=== PATIENT | female | born 1930 | race Caucasian/White ===

== ENCOUNTER 2020-03-08 16:17 | Inpatient (IN) | payer MEDICARE, OTHER ==
[~2020-03-08] VITALS: Ht 162.6 cm; Wt 53.6 kg
[~2020-03-08 16:17] MED LIST: ASA81 MG; BYSTOLIC10 MG PO; COUMADIN2.5 MG PO; IMODIUM2 MG PO; KEFLEX500 MG PO; METOPROLOL SUCC50 MG PO; METOPROLOL TART25 MG PO; PEPCID20 MG PO; WARFARIN SODIU2.5 MG PO; Z.0.ATENOLOL25 MG
[2020-03-08] MEDS ORDERED: ONDANSETRON HCL INJ 2MG/ML 2ML 2 MG/ML VIAL IV STA (16:56)
[2020-03-08] MEDS ORDERED: MORPHINE SULFATE 2 MG/ML SYR 1ML IV STA (16:56)
[2020-03-08 17:42] LABS: BASOPHILS # (AUTO) 0.1 (0.0-0.1); BASOPHILS % 0.9 % (0.0-1.0); EOSINOPHILS # (AUTO) 0.3 (0.0-0.4); EOSINOPHILS % 3.8 % (0.0-6.0); HEMATOCRIT 34.7 % (34.2-44.1); HEMOGLOBIN 10.5 g/dL (12.0-16.0); LYMPHOCYTES # (AUTO) 0.5 (1.0-3.2); LYMPHOCYTES % 6.1 % (18.0-39.1); MEAN CORPUSCULAR HEMOGLOBIN 26.6 pg (28-32); MEAN CORPUSCULAR HGB CONC 30.3 g/dL (31-35); MEAN CORPUSCULAR VOLUME 88.1 fL (81-99); MONOCYTES # (AUTO) 0.9 (0.2-0.8); MONOCYTES % 10.6 % (4.4-11.3); NEUTROPHILS # (AUTO) 6.9 (2.1-6.9); NEUTROPHILS % 77.8 % (38.7-80.0); PLATELET COUNT 416 x10e3/uL (140-360); RED BLOOD COUNT 3.94 x10e6/uL (3.6-5.1); RED CELL DISTRIBUTION WIDTH 16.5 % (11.7-14.4)
[2020-03-08] MEDS ORDERED: ACETAMINOPHEN 325 MG TAB PO ONE (17:45)
[2020-03-08 17:54] LABS: INR 2.35; PROTHROMBIN TIME 27.5 seconds (11.9-14.5)
[2020-03-08 17:55] LABS: PARTIAL THROMBOPLASTIN TIME 40.1 seconds (23.8-35.5)
[2020-03-08 18:04] LABS: ALANINE AMINOTRANSFERASE 6 IU/L (0-55); ALBUMIN 2.8 g/dL (3.5-5.0); ALBUMIN/GLOBULIN RATIO 0.7 (0.8-2.0); ALKALINE PHOSPHATASE 119 IU/L (40-150); ANION GAP 15.1 mmol/L (8-16); BLOOD UREA NITROGEN 17 mg/dL (7-26); BUN/CREATININE RATIO 24 (6-25); CALCIUM 8.3 mg/dL (8.4-10.2); CARBON DIOXIDE 20 mmol/L (22-29); CHLORIDE 106 mmol/L (98-107); CREATINE KINASE 30 IU/L (29-168); CREATININE, SERUM 0.72 mg/dL (0.57-1.11); EST GLOMERULAR FILTRATION RATE > 60 ML/MIN (60-); GLUCOSE 112 mg/dL (74-118); POTASSIUM 4.1 mmol/L (3.5-5.1); SODIUM 137 mmol/L (136-145)
--- NOTE | 2020-03-08 18:26 | Diagnostic Imaging Report ---
CT BRAIN WO HISTORY: Trauma COMPARISON: Head CT 10/01/2019 Technique: Noncontrast axial scans were obtained from skull base to the vertex. Coronal and sagittal reconstructions obtained from the axial data. One or more of the following dose reduction techniques were used: Automated exposure control, adjustment of the mA and/or kV according to patient size, and/or utilization of iterative reconstruction technique. DISCUSSION: Scalp/Skull: Unremarkable. Brain sulci: Mildly prominent. Ventricles: Compensatory dilatation. Extra-axial spaces: No masses or fluid collections. Carotid siphon calcifications are present. Parenchyma: Focal encephalomalacia in the right inferior frontal gyrus (pars orbitalis), right occipital pole, and left anterior cingulate gyrus may be from remote infarcts. 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 Severe bilateral deep white matter hypodensity is likely chronic microvascular ischemic change. Otherwise, no masses, hemorrhage, or large vascular territory acute infarct. Dural sinuses: No abnormal densities. Sellar/Suprasellar region: Intact. Skull base: Intact. Incidental findings: Bilateral ocular lens replacement. Mild left maxillary sinus mucosal thickening. IMPRESSION: 1. No acute intracranial abnormalities. 2. 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 3. 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 4. Generalized cerebral volume loss. Signed by: Dr. Kranthi Huber M.D. on 03/08/2020 6:22 PM
--- NOTE | 2020-03-08 18:30 | Diagnostic Imaging Report ---
CT CERVICAL SPINE WO HISTORY: Trauma COMPARISON: None. TECHNIQUE: CT of the cervical spine without contrast. Sagittal and coronal reformations were created. One or more of the following dose reduction techniques were used: Automated exposure control, adjustment of the mA and/or kV according to patient size, and/or utilization of iterative reconstruction technique. FINDINGS: Bone demineralization limits evaluation. Cervical lordosis is preserved. There is no scoliosis or subluxation. No definite acute fracture or compression deformity is seen. The craniocervical junction is intact. No gross spinal canal masses are seen. The paravertebral and paraspinal soft tissues are unremarkable. Multilevel advanced spondylotic changes are most prominent at C3-C4 and C4-C5. There is at least mild canal stenosis from C3-C4 to C5-C6 due to posterior disc osteophyte complexes. Multilevel mild to moderate bilateral foraminal stenoses due to uncovertebral and facet arthrosis are present. There is mild scarring in the lung apices. Mild bilateral carotid bulb calcified plaque is present. IMPRESSION: No acute osseous abnormalities. Multilevel advanced spondylosis as described above. Signed by: Dr. Kranthi Huber M.D. on 03/08/2020 6:27 PM
--- NOTE | 2020-03-08 18:35 | Diagnostic Imaging Report ---
EXAMINATION: CT of the abdomen and pelvis without contrast. TECHNIQUE: Spiral CT images of the abdomen and pelvis were performed from the lung bases to the lesser trochanters. No intravenous contrast was given per physician's request. Coronal and sagittal reformatted images were obtained. COMPARISON: None. CLINICAL HISTORY:Status post fall, right lower quadrant pain since yesterday DISCUSSION: ABSENCE OF INTRAVENOUS CONTRAST DECREASES SENSITIVITY FOR DETECTION OF FOCAL LESIONS AND VASCULAR PATHOLOGY. ABDOMEN/PELVIS: LOWER THORAX: Small right pleural effusion and associated compressive atelectasis of the posterior right lower lobe. Trace left effusion and associated atelectatic changes in the posterior left lower lobe. Moderate cardiomegaly . Atherosclerotic calcification of the coronary arteries and thoracic aorta. Moderate hiatal hernia containing stomach fundus and cardia. Distal portion of pacer wire noted in the right ventricle. HEPATOBILIARY: 1.1 cm low-density simple cyst in hepatic segment III (series 2, image 20). Calcified granuloma in hepatic segment IV (series 2, image 27). No other focal lesions. No intra or extrahepatic biliary ductal dilation. GALLBLADDER: Cholecystectomy clips. SPLEEN: No splenomegaly. Multiple calcified splenic granulomata PANCREAS: No focal masses or ductal dilatation. ADRENALS: No adrenal nodules. KIDNEYS/URETERS: Right mild pelvocaliectasis. No hydronephrosis. Bilateral extrarenal pelves. Marked dilation of the ureters bilaterally, right greater than left. Punctate radiopaque calculus is noted in the mid right ureter (series 2, image 41). No distal obstructing calculus is identified. Mostly exophytic 1.5 cm fluid density simple cyst in the posterior inferior left kidney (series 2, image 27). No other contour abnormalities. PELVIC ORGANS/BLADDER: Moderate to marked distention of the bladder. Uterus is not clearly visualized. No adnexal masses. PERITONEUM/RETROPERITONEUM: No free air or fluid. LYMPH NODES: No intra-abdominal,retroperitoneal, pelvic or inguinal lymphadenopathy. VESSELS: Moderate to marked atherosclerotic calcification of the abdominal aorta and proximal iliac vessels. GI TRACT: No bowel dilation or evidence of obstruction. No pericolonic inflammatory changes. A few diverticula are noted in the sigmoid colon, without diverticulitis. BONES AND SOFT TISSUES: Generalized osteopenia. Acute, minimally displaced fracture of the junction of the right superior pubic ramus with the acetabulum (best visualized on coronal image 46). Acute, displaced fracture of the right inferior pubic ramus, with medial displacement of the distal fracture fragment by approximately one shaft width (series 2, image 76). No significant associated hematoma. No other acute, displaced fractures are identified. 3 orthopedic screws are noted in the proximal right femur, which are intact. Mild mild to moderate bilateral hip degenerative changes. No aggressive lytic or blastic lesions. Soft tissues are grossly unremarkable. IMPRESSION: 1.Acute, minimally displaced fracture of the junction of the right superior pubic ramus with the acetabulum. 2.Acute, displaced fracture of the right inferior pubic ramus, with medial displacement of the distal fracture fragment by approximately one shaft width. No significant associated hematoma. 3. Moderate to marked distention of the bladder. Marked dilation of the ureters bilaterally right greater than left. No large obstructing stones are identified. Findings may relate to bladder obstruction. 4. Punctate intraluminal calculus in the right mid ureter. 5. Small right pleural effusion and trace left effusion with associated atelectatic changes in the lower lobes. 6. Moderate hiatal hernia containing the stomach fundus and cardia. Signed by: Dr. Pawel Collins M.D. on 03/08/2020 6:31 PM
--- NOTE | 2020-03-08 18:37 | Diagnostic Imaging Report ---
Examination: Single AP view of the chest. COMPARISON: Portable chest 01/29/2016, CT abdomen and pelvis performed same date INDICATION: Status post fall IMPRESSION: 1. Lines and Tubes: Left upper chest single lead cardiac device with distal tip projecting in the right ventricle. 2. Lungs are well-inflated. Diffuse bilateral interstitial opacities extending from the mila suggesting interstitial pulmonary edema. No consolidation. No effusion is noted in this single AP view, although small right effusion is noted on CT performed same date. 3. Enlarged cardiac silhouette. No pulmonary venous congestion. 4. Cortical step-off at the right proximal humeral metaphysis, likely representing an acute fracture in the setting of trauma. Please see dedicated humerus films for further evaluation. Signed by: Dr. Pawel Collins M.D. on 03/08/2020 6:34 PM
[2020-03-08 18:46] LABS: CLARITY,URINE CLOUDY (CLEAR); COLOR,URINE YELLOW (YELLOW); KETONES,URINE NEGATIVE (NEGATIVE); LEUKOCYTE ESTERASE ,URINE 2+ (NEGATIVE); NITRITE,URINE NEGATIVE (NEGATIVE); PROTEIN,URINE DIPSTICK 1+ (NEGATIVE)
[2020-03-08 18:47] LABS: BILIRUBIN,URINE NEGATIVE (NEGATIVE); URINE UROBILINOGEN 0.2 mg/dL (0.2 - 1)
--- NOTE | 2020-03-08 18:51 | NUR ---
report given to Fan NEVAREZ
[2020-03-08 18:54] LABS: BACTERIA,URINE MANY /HPF; WBC,URINE (MAN) >50 /HPF (0-5)
--- NOTE | 2020-03-08 19:04 | Emergency Department Note ---
History of Present Illnes History of Present Illness Chief Complaint: Extremity Trauma/Pain History of Present Illness This is a 89 year old female s/p fall yesterday at her assisted living center secondary to weakness. Pain at lower abdominal region Historian: Patient, Junior Media Buyer/EMS Arrival Mode: NATHAN EMS Treatment SENIOR STAFF ACCOUNTANT: See EMS Report Onset (how long ago): day(s) (1) Radiation: Reports abdomen Severity: moderate Onset quality: sudden Duration (how long): day(s) (1) Timing of current episode: constant Progression: unchanged Chronicity: new Context: Reports trauma/injury Relieving factors: immobilization Exacerbating factors: movement Associated symptoms: Reports denies other symptoms Treatments prior to arrival: none Past Medical/Family History Physician Review I have reviewed the patient's past medical and family history. Any updates have been documented here. Past Medical History Recent Fever: No Clinical Suspicion of Infectio: No New/Unexplained Change in Ment: No Past Medical History: A-Fib, Hyperlipedemia Other Medical History: eye surgery Past Surgical History: Cholecysctectomy, Hysterectomy Other Surgery: EYE SX X6 Social History Smoking Cessation: Never Smoker Counseling Performed: No Alcohol Use: None Any Illegal Drug Use: No TB Exposure/Symptoms: No Physically hurt or threatened: No Other Last Tetanus: >5 YEARS Any Pre-Existing Lines (PICC,: No Is patient up to date on immun: Yes Last Flu: UTD Last Pneumovax: UTD Review of Systems Review of Systems Constitutional: Reports weakness EENTM: Reports no symptoms Cardiovascular: Reports no symptoms Respiratory: Reports no symptoms Gastrointestinal: Reports no symptoms Genitourinary: Reports no symptoms Musculoskeletal: Reports joint swelling Integumentary: Reports no symptoms Neurological: Reports no symptoms Psychological: Reports no symptoms Endocrine: Reports no symptoms Hematological/Lymphatic: Reports no symptoms Physical Exam Related Data Allergies: Coded Allergies: iodine (Verified Allergy, Severe, ANAPHYLACTIC, 01/29/16) codeine (Verified Allergy, Intermediate, TACHYCARDIA, 01/29/16) Sulfa (Sulfonamide Antibiotics) (Verified Allergy, Unknown, RASH, 11/15/16) Triage Vital Signs Vital Signs Date Time Temp Pulse Resp B/P (MAP) Pulse Ox O2 Delivery O2 Flow Rate FiO2 03/08/20 16:36 98.2 85 16 134/82 96 Vital signs reviewed: Yes Physical Exam CONSTITUTIONAL Constitutional: Present well-developed, Present well-nourished HENT HENT: Present normocephalic, Present atraumatic, Present oropharynx clear/moist, Present nose normal HENT L/R: Present left ext ear normal, Present right ext ear normal EYES Eyes: Reports PERRL, Reports conjunctivae normal NECK Neck: Present ROM normal PULMONARY Pulmonary: Present effort normal, Present breath sounds normal CARDIOVASCULAR Cardiovascular: Present irregular rhythm, Present normal rate GASTROINTESTINAL Abdominal: Present soft, Present nontender, Present bowel sounds normal GENITOURINARY Genitourinary: Present exam deferred SKIN Skin: Present warm, Present dry MUSCULOSKELETAL Musculoskeletal: Present tenderness (suprapubic ) NEUROLOGICAL Neurological: Present alert, Present oriented x 3, Present no gross motor or sensory deficits PSYCHOLOGICAL Psychological: Present mood/affect normal, Present judgement normal Results Laboratory Result Diagram: 03/08/20 1725 03/08/20 1725 Laboratory Laboratory Tests Test 03/08/20 18:10 03/08/20 17:25 Urine Color Yellow (YELLOW) Urine Clarity Cloudy (CLEAR) Urine pH 6 (5 - 7) Urine Specific [place] 1.025 (1.010-1.025) Urine Protein 1+ (NEGATIVE) Urine Glucose (UA) Negative (NEGATIVE) Urine Ketones Negative (NEGATIVE) Urine Blood 3+ (NEGATIVE) Urine Nitrite Negative (NEGATIVE) Urine Bilirubin Negative (NEGATIVE) Urine Urobilinogen 0.2 mg/dL (0.2 - 1) Urine Leukocyte Esterase 2+ (NEGATIVE) Urine RBC 11-20 /HPF (0-5) Urine WBC >50 /HPF (0-5) Urine Epithelial Cells None /LPF (NONE) Urine Bacteria Many /HPF (NONE) White Blood Count 8.80 x10e3/uL (4.8-10.8) Red Blood Count 3.94 x10e6/uL (3.6-5.1) Hemoglobin 10.5 g/dL (12.0-16.0) Hematocrit 34.7 % (34.2-44.1) Mean Corpuscular Volume 88.1 fL (81-99) Mean Corpuscular Hemoglobin 26.6 pg (28-32) Mean Corpuscular Hemoglobin Concent 30.3 g/dL (31-35) Red Cell Distribution Width 16.5 % (11.7-14.4) Platelet Count 416 x10e3/uL (140-360) Neutrophils (%) (Auto) 77.8 % (38.7-80.0) Lymphocytes (%) (Auto) 6.1 % (18.0-39.1) Monocytes (%) (Auto) 10.6 % (4.4-11.3) Eosinophils (%) (Auto) 3.8 % (0.0-6.0) Basophils (%) (Auto) 0.9 % (0.0-1.0) Neutrophils # (Auto) 6.9 (2.1-6.9) Lymphocytes # (Auto) 0.5 (1.0-3.2) Monocytes # (Auto) 0.9 (0.2-0.8) Eosinophils # (Auto) 0.3 (0.0-0.4) Basophils # (Auto) 0.1 (0.0-0.1) Absolute Immature Granulocyte (auto 0.07 x10e3/uL (0-0.1) Prothrombin Time 27.5 seconds (11.9-14.5) Prothromb Time International Ratio 2.35 Activated Partial Thromboplast Time 40.1 seconds (23.8-35.5) Sodium Level 137 mmol/L (136-145) Potassium Level 4.1 mmol/L (3.5-5.1) Chloride Level 106 mmol/L (98-107) Carbon Dioxide Level 20 mmol/L (22-29) Anion Gap 15.1 mmol/L (8-16) Blood Urea Nitrogen 17 mg/dL (7-26) Creatinine 0.72 mg/dL (0.57-1.11) Estimat Glomerular Filtration Rate > 60 ML/MIN (60-) BUN/Creatinine Ratio 24 (6-25) Glucose Level 112 mg/dL (74-118) Calcium Level 8.3 mg/dL (8.4-10.2) Total Bilirubin 0.8 mg/dL (0.2-1.2) Aspartate Amino Transf (AST/SGOT) 13 IU/L (5-34) Alanine Aminotransferase (ALT/SGPT) 6 IU/L (0-55) Alkaline Phosphatase 119 IU/L (40-150) Creatine Kinase 30 IU/L (29-168) Creatine Kinase MB 1.00 ng/mL (0-5.0) Troponin I 0.012 ng/mL (0-0.300) Total Protein 6.9 g/dL (6.5-8.1) Albumin 2.8 g/dL (3.5-5.0) Globulin 4.1 g/dL (2.3-3.5) Albumin/Globulin Ratio 0.7 (0.8-2.0) Imaging Imaging results reviewed: Yes Impressions [place] [address] Patient Name: ASHOK LOCKE MR #: [id number] : 1930 Age/Sex: 89/F Req #: [id number] Adm Physician: Ordered by: CHRISTOPHER RILEY MD Report #: [id number] Location: ER Room/Bed: Procedure: [id number] CT/CT ABDOMEN/PELVIS WO Exam Date: 03/08/20 Exam Time: 1750 REPORT STATUS: Signed EXAMINATION: CT of the abdomen and pelvis without contrast. TECHNIQUE: Spiral CT images of the abdomen and pelvis were performed from the lung bases to the lesser trochanters. No intravenous contrast was given per physician's request. Coronal and sagittal reformatted images were obtained. COMPARISON: None. CLINICAL HISTORY:Status post fall, right lower quadrant pain since yesterday DISCUSSION: ABSENCE OF INTRAVENOUS CONTRAST DECREASES SENSITIVITY FOR DETECTION OF FOCAL LESIONS AND VASCULAR PATHOLOGY. ABDOMEN/PELVIS: LOWER THORAX: Small right pleural effusion and associated compressive atelectasis of the posterior right lower lobe. Trace left effusion and associated atelectatic changes in the posterior left lower lobe. Moderate cardiomegaly . Atherosclerotic calcification of the coronary arteries and thoracic aorta. Moderate hiatal hernia containing stomach fundus and cardia. Distal portion of pacer wire noted in the right ventricle. HEPATOBILIARY: 1.1 cm low-density simple cyst in hepatic segment III (series 2, image 20). Calcified granuloma in hepatic segment IV (series 2, image 27). No other focal lesions. No intra or extrahepatic biliary ductal dilation. GALLBLADDER: Cholecystectomy clips. SPLEEN: No splenomegaly. Multiple calcified splenic granulomata PANCREAS: No focal masses or ductal dilatation. ADRENALS: No adrenal nodules. KIDNEYS/URETERS: Right mild pelvocaliectasis. No hydronephrosis. Bilateral extrarenal pelves. Marked dilation of the ureters bilaterally, right greater than left. Punctate radiopaque calculus is noted in the mid right ureter (series 2, image 41). No distal obstructing calculus is identified. Mostly exophytic 1.5 cm fluid density simple cyst in the posterior inferior left kidney (series 2, image 27). No other contour abnormalities. PELVIC ORGANS/BLADDER: Moderate to marked distention of the bladder. Uterus is not clearly visualized. No adnexal masses. PERITONEUM/RETROPERITONEUM: No free air or fluid. LYMPH NODES: No intra-abdominal,retroperitoneal, pelvic or inguinal lymphadenopathy. VESSELS: Moderate to marked atherosclerotic calcification of the abdominal aorta and proximal iliac vessels. GI TRACT: No bowel dilation or evidence of obstruction. No pericolonic inflammatory changes. A few diverticula are noted in the sigmoid colon, without diverticulitis. BONES AND SOFT TISSUES: Generalized osteopenia. Acute, minimally displaced fracture of the junction of the right superior pubic ramus with the acetabulum (best visualized on coronal image 46). Acute, displaced fracture of the right inferior pubic ramus, with medial displacement of the distal fracture fragment by approximately one shaft width (series 2, image 76). No significant associated hematoma. No other acute, displaced fractures are identified. 3 orthopedic screws are noted in the proximal right femur, which are intact. Mild mild to moderate bilateral hip degenerative changes. No aggressive lytic or blastic lesions. Soft tissues are grossly unremarkable. IMPRESSION: 1.Acute, minimally displaced fracture of the junction of the right superior pubic ramus with the acetabulum. 2.Acute, displaced fracture of the right inferior pubic ramus, with medial displacement of the distal fracture fragment by approximately one shaft width. No significant associated hematoma. 3. Moderate to marked distention of the bladder. Marked dilation of the ureters bilaterally right greater than left. No large obstructing stones are identified. Findings may relate to bladder obstruction. 4. Punctate intraluminal calculus in the right mid ureter. 5. Small right pleural effusion and trace left effusion with associated atelectatic changes in the lower lobes. 6. Moderate hiatal hernia containing the stomach fundus and cardia. Signed by: Dr. Nkechi Collins M.D. on 03/08/2020 6:31 PM Dictated By: NKECHI COLLINS MD 30 Transcribed By: REGINALD on 03/08/201830 COPY TO: CHRISTOPHER RILEY MD~ [place] [address] Patient Name: ASHOK LOCKE MR #: [id number] : 1930 Age/Sex: 89/F Req #: [id number] Adm Physician: Ordered by: CHRISTOPHER RILEY MD Report #: [id number] Location: ER Room/Bed: Procedure: [id number] DX/CHEST SINGLE (PORTABLE) Exam Date: 03/08/20 Exam Time: 1750 REPORT STATUS: Signed Examination: Single AP view of the chest. COMPARISON: Portable chest 01/29/2016, CT abdomen and pelvis performed same date INDICATION: Status post fall IMPRESSION: 1. Lines and Tubes: Left upper chest single lead cardiac device with distal tip projecting in the right ventricle. 2. Lungs are well-inflated. Diffuse bilateral interstitial opacities extending from the mila suggesting interstitial pulmonary edema. No consolidation. No effusion is noted in this single AP view, although small right effusion is noted on CT performed same date. 3. Enlarged cardiac silhouette. No pulmonary venous congestion. 4. Cortical step-off at the right proximal humeral metaphysis, likely representing an acute fracture in the setting of trauma. Please see dedicated humerus films for further evaluation. Signed by: Dr. Nkechi Collins M.D. on 03/08/2020 6:34 PM Dictated By: NKECHI COLLINS MD 33 Transcribed By: REGINALD on 03/08/201833 COPY TO: CHRISTOPHER RILEY MD~ [place] [address] Patient Name: ASHOK LOCKE MR #: [id number] : 1930 Age/Sex: 89/F Req #: [id number] Adm Physician: Ordered by: CHRISTOPHER RILEY MD Report #: [id number] Location: ER Room/Bed: Procedure: [id number] CT/CT CERVICAL SPINE WO Exam Date: 03/08/20 Exam Time: 1750 REPORT STATUS: Signed CT CERVICAL SPINE WO HISTORY: Trauma COMPARISON: None. TECHNIQUE: CT of the cervical spine without contrast. Sagittal and coronal reformations were created. One or more of the following dose reduction techniques were used: Automated exposure control, adjustment of the mA and/or kV according to patient size, and/or utilization of iterative reconstruction technique. FINDINGS: Bone demineralization limits evaluation. Cervical lordosis is preserved. There is no scoliosis or subluxation. No definite acute fracture or compression deformity is seen. The craniocervical junction is intact. No gross spinal canal masses are seen. The paravertebral and paraspinal soft tissues are unremarkable. Multilevel advanced spondylotic changes are most prominent at C3-C4 and C4-C5. There is at least mild canal stenosis from C3-C4 to C5-C6 due to posterior disc osteophyte complexes. Multilevel mild to moderate bilateral foraminal stenoses due to uncovertebral and facet arthrosis are present. There is mild scarring in the lung apices. Mild bilateral carotid bulb calcified plaque is present. IMPRESSION: No acute osseous abnormalities. Multilevel advanced spondylosis as described above. Signed by: Dr. Kranthi Huber M.D. on 03/08/2020 6:27 PM Dictated By: KRANTHI HUBER MD 26 Transcribed By: REGINALD on 03/08/201826 COPY TO: CHRISTOPHER RILEY MD~ [facility] [address] [place] [address] Patient Name: ASHOK LOCKE MR #: [id number] : 1930 Age/Sex: 89/F Req #: [id number] Adm Physician: Ordered by: CHRISTOPHER RILEY MD Report #: [id number] Location: ER Room/Bed: Procedure: [id number] CT/CT BRAIN WO Exam Date: 03/08/20 Exam Time: 1750 REPORT STATUS: Signed CT BRAIN WO HISTORY: Trauma COMPARISON: Head CT 10/01/2019 Technique: Noncontrast axial scans were obtained from skull base to the vertex. Coronal and sagittal reconstructions obtained from the axial data. One or more of the following dose reduction techniques were used: Automated exposure control, adjustment of the mA and/or kV according to patient size, and/or utilization of iterative reconstruction technique. DISCUSSION: Scalp/Skull: Unremarkable. Brain sulci: Mildly prominent. Ventricles: Compensatory dilatation. Extra-axial spaces: No masses or fluid collections. Carotid siphon calcifications are present. Parenchyma: Focal encephalomalacia in the right inferior frontal gyrus (pars orbitalis), right occipital pole, and left anterior cingulate gyrus may be from remote infarcts. 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 Severe bilateral deep white matter hypodensity is likely chronic microvascular ischemic change. Otherwise, no masses, hemorrhage, or large vascular territory acute infarct. Dural sinuses: No abnormal densities. Sellar/Suprasellar region: Intact. Skull base: Intact. Incidental findings: Bilateral ocular lens replacement. Mild left maxillary sinus mucosal thickening. IMPRESSION: 1. No acute intracranial abnormalities. 2. 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 3. 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 4. Generalized cerebral volume loss. Signed by: Dr. Kranthi Huber M.D. on 03/08/2020 6:22 PM Dictated By: KRANTHI HUBER MD 21 Transcribed By: REGINALD on 03/08/201821 COPY TO: CHRISTOPHER RILEY MD~ Procedures 12 Lead ECG Interpretation ECG Interpretation : ECG: ECG 1 Barrel Cutter: Interpreted by ED physician Date: Mar 08, 2020 Time: 19:15 Prior ECG tracings: reviewed Rhythm: atrial fibrillation BPM: 99 ST segments normal: Yes T waves normal: Yes Clinical Impression: non-specific ECG Assessment & Plan Medical Decision Making MDM 89 yof with generalized weakness with resultant fall. CTS Brain and labs ordered to evaluate for intracranial or electrolyte etiology for weakness. CTS abd pelvis ordered for intraperitoneal damage secondary to pubic rami fx. Plan to admit to the hospital for evaluation by orthopedics for injuries Assessment & Plan Final Impression: (1) Pubic ramus fracture (2) Urinary retention (3) UTI (urinary tract infection) (4) Weakness Depart Disposition: ADMITTED Last Vital Signs Date Time Temp Pulse Resp B/P (MAP) Pulse Ox O2 Delivery O2 Flow Rate FiO2 03/08/20 16:42 90 18 131/54 100 03/08/20 16:36 98.2 Home Meds Reported Medications Metoprolol Succinate (METOPROLOL SUCCINATE) 50 Mg Tab.er.24h, 50 MG PO BID, MG 03/09/20 Melatonin (MELATONIN) 3 Mg Tablet, 3 MG PO HS, TAB 03/09/20 Warfarin Sodium (WARFARIN SODIUM) 2 Mg Tablet, 2 MG PO DAILY, TAB 03/09/20 Fluoxetine Hcl (FLUOXETINE HCL) 10 Mg Capsule, 10 MG PO HS, #30 CAP 03/09/20 Metoprolol Succinate (METOPROLOL SUCCINATE) 50 Mg Tab.er.24h, 50 MG PO BID 09/28/19 Warfarin Sodium (WARFARIN SODIUM) 2.5 Mg Tablet, 2.5 MG PO .six days a week do not take on friday09/28/19 Medications in the ED Morphine Sulfate 2 mg ONCE STAT IV ; Start 03/08/20 at 16:56; Stop 03/08/20 at 17:17; Status DC Ondansetron HCl 4 mg ONCE STAT IV ; Start 03/08/20 at 16:56; Stop 03/08/20 at 17:18; Status DC Acetaminophen 650 mg ONCE ONCE PO Last administered on 03/08/20at 18:15; Admin Dose 650 MG; Start 03/08/20 at 17:45; Stop 03/08/20 at 17:46; Status DC MARIANA MARQUEZ DO Mar 08, 2020 19:04
--- NOTE | 2020-03-08 19:40 | NUR ---
PT UPDATED ON POC BY DR. MARQUEZ, ALL QUESTIONS ANSWERED
[2020-03-08] MEDS: SODIUM CHLORIDE 0.9% 1000ML 1,000 ML IV SCH ×2 (19:50→23:52)
--- NOTE | 2020-03-08 19:53 | NUR ---
PATIENT SWABBED FOR COVID AT THIS TIME, NON PUI
[2020-03-08] MEDS ORDERED: ACETAMINOPHEN 325 MG TAB PO PRN (20:00)
[2020-03-08] MEDS: CEFTRIAXONE SOD 1 GM/NS 50 ML 50 ML IV SCH (21:30)
[2020-03-08 23:00] VITALS: BP 124/75
--- NOTE | 2020-03-08 23:00 | NUR ---
PATIENT ARRIVED VIA STRETCHER. RECEIVED REPORT FROM CHANDRA PEPPER NURSE. PATIENT IN PAIN FROM FALL AT ASSISTED [facility]IVING. CALL LIGHT WITHIN REACH. PATIENT IN BED.
[2020-03-09] VITALS (7 sets, daily range): BP systolic 97–129; BP diastolic 51–78
[2020-03-09] MEDS ORDERED: FLUOXETINE HCL10 MG PO (00:34)
[2020-03-09] MEDS ORDERED: MELATONIN3 MG PO (00:34)
[2020-03-09] MEDS ORDERED: METOPROLOL SUCC50 MG PO (00:34)
[2020-03-09] MEDS ORDERED: WARFARIN SODIUM2 MG PO (00:34)
[2020-03-09 05:51] LABS: BASOPHILS # (AUTO) 0.1 (0.0-0.1); BASOPHILS % 0.7 % (0.0-1.0); EOSINOPHILS # (AUTO) 0.2 (0.0-0.4); EOSINOPHILS % 1.5 % (0.0-6.0); HEMATOCRIT 34.7 % (34.2-44.1); HEMOGLOBIN 10.3 g/dL (12.0-16.0); LYMPHOCYTES # (AUTO) 0.6 (1.0-3.2); LYMPHOCYTES % 5.7 % (18.0-39.1); MEAN CORPUSCULAR HEMOGLOBIN 26.4 pg (28-32); MEAN CORPUSCULAR HGB CONC 29.7 g/dL (31-35); MONOCYTES % 9.7 % (4.4-11.3); NEUTROPHILS # (AUTO) 8.5 (2.1-6.9); NEUTROPHILS % 81.9 % (38.7-80.0); PLATELET COUNT 401 x10e3/uL (140-360); RED CELL DISTRIBUTION WIDTH 16.6 % (11.7-14.4)
[2020-03-09 05:55] LABS: INR 2.54; PROTHROMBIN TIME 29.3 seconds (11.9-14.5)
[2020-03-09 06:23] LABS: ALANINE AMINOTRANSFERASE 6 IU/L (0-55); ALBUMIN 2.7 g/dL (3.5-5.0); ALBUMIN/GLOBULIN RATIO 0.7 (0.8-2.0); ALKALINE PHOSPHATASE 121 IU/L (40-150); ANION GAP 15.9 mmol/L (8-16); BLOOD UREA NITROGEN 16 mg/dL (7-26); BUN/CREATININE RATIO 24 (6-25); CALCIUM 8.1 mg/dL (8.4-10.2); CARBON DIOXIDE 18 mmol/L (22-29); CHLORIDE 108 mmol/L (98-107); CREATININE, SERUM 0.67 mg/dL (0.57-1.11); EST GLOMERULAR FILTRATION RATE > 60 ML/MIN (60-); GLUCOSE 107 mg/dL (74-118); POTASSIUM 3.9 mmol/L (3.5-5.1); SODIUM 138 mmol/L (136-145)
--- NOTE | 2020-03-09 07:31 | NUR ---
GAVE BEDSIDE SHIFT REPORT TO ONCOMING NURSE. CALL LIGHT WITHIN REACH. PATIENT IN BED
[2020-03-09] MEDS: SODIUM CHLORIDE 0.9% 1000ML 1,000 ML IV SCH ×2 (07:36→20:49)
--- NOTE | 2020-03-09 07:50 | NUR ---
ORTHOPEDIC CONSULTATION 89 year old right hand dominant female who ambulates with a walker presents from her nursing facility after a mechanical fall with complaints of right groin pain with an inability to ambulate. She denies numbness, paresthesias or loss of distal motor function. She presently denies pain in any other extremity PMdHx: Dehydration, Hypokalemia, A-fib, Humeral Head Fracture, UTI, Urinary retention, Allergies: Sulfa, Codeine, Iodine Surgical Hx: Right hip CRPP FamHx: Non-contributory SocHx; Resident at facility, No present Tob, EtOh or Drugs AVSS Right Lower Extremity TTP of Superior & Inferior Pubic Rami Pain with straight leg raise Pain with log roll Motor: + EHL, FHL, TA, G/S Sensation grossly intact Pulses + DP, Post tib Compartments soft Negative calf tendernss Right Upper Extremity No pain with ROM of Elbow & Shoulder Motor: +AIN, PIN, Radial, Median, Ulnar Sensation grossly intact Pulses + Radial, good capillary refill Compartments soft Xrays of Chest: demonstrate metaphyseal cortical step off suggestive of fracture. CT of Pelvis; demonstrates right superior & inferior pubic rami fracture 89 year old F with Right Superior & Inferior Pubic Rami Fracture, Right Proximal Humerus Cortical Step Off - likely old Right Proximal Humerus Fracture with Callus formation 1. Follow up Xrays of Right Shoulder, will likely be WBAT 2. Analgesics 3. Pelvis - PT, WBAT 4. DVT Prophylaxis 5. Follow up in office in 1-2 weeks Thank you for the consultation. Ana Luisa Ward, DO [facility] [place].
[2020-03-09 07:58] LABS: ANISOCYTOSIS SLIGHT; HYPOCHROMASIA SLIGHT; PLATELET ESTIMATE ADEQUATE; PLATELET MORPHOLOGY COMMENT NORMAL
[2020-03-09 07:59] LABS: ELLIPTOCYTE, RBC SLIGHT; OVALOCYTES FEW; POIKILOCYTOSIS SLIGHT; RBC MORPHOLOGY COMMENT ABNORMAL
[2020-03-09 08:00] LABS: PLATELET CLUMPS RARE
--- NOTE | 2020-03-09 08:43 | History and Physical ---
HISTORY OF PRESENT ILLNESS: The patient came in status post fall and is brought in by paramedics. The patient lives in assisted living center and the patient sustained pubic fracture and also humeral fracture. PAST MEDICAL HISTORY: History of hypertension, history of hyperlipidemia, history of atrial fibrillation, and history of generalized debility. PAST SURGICAL HISTORY: Includes cholecystectomy, hysterectomy, eye surgeries and otherwise noncontributory. SOCIAL HISTORY: No EtOH, no IV drug abuse. No history of smoking either. FAMILY HISTORY: Noncontributory. MEDICATIONS: The patient's medication she takes at home include fluoxetine 10 mg for depression, melatonin 3 mg for sleep, metoprolol 50 mg ER twice a day. She also takes warfarin 2 mg daily for atrial fibrillation. REVIEW OF SYSTEMS: Unable to obtain because the patient is confused, but no complaints of chest pain, complains of hip pain and also right arm pain. PHYSICAL EXAMINATION: GENERAL: The patient is confused. HEENT: Normocephalic, atraumatic. Pupils are equal to react to light and accommodation. CVS: S1 and S2 irregular. ABDOMEN: Nontender, nondistended. There is left hip tenderness and tenderness in the humerus also. EXTREMITIES: No clubbing, no cyanosis, no edema. LABORATORY VALUES: Initial white count is 8.80, hemoglobin of 10.5, hematocrit of 34.7, platelets of 416,000. BUN of 17, creatinine 0.72. Urine bacteria many, nitrates negative, and leukocyte esterase was also negative. Troponins have been trended to be negative and her INR was 2.54. Serology, ortiz virus is pending. ASSESSMENT: Ms. Pascale Flores is with: 1. Status post fall sustaining an acute minimally displaced right superior pubic ramus fracture acute displaced fracture of the right inferior pubic rami. 2. Urinary retention. 3. Small pleural effusion. 4. Atrial fibrillation. 5. Hypertension. 6. Hyperlipidemia. PLAN: 1. Consult with Dr. Childs has been done. If it is okay with him, we can start mobilizing the patient and physical therapy. No surgical intervention seems to be done. 2. X-ray of the right humerus to rule out humeral fracture as per CT. 3. Continue with metoprolol 50 mg twice a day and her warfarin. 4. Continue monitoring her PT/INR. 5. Possible discharge to SNF when arranged, needs physical therapy continuously and pain management. 6. Delirium with baseline possible dementia. We will continue monitoring the patient's mental status. Further recommendation per clinical course. We will discuss the family when family available. MD KULDIP Morales/MODL /[id number]
--- NOTE | 2020-03-09 09:15 | NUR ---
PATIENT TRANSPORTED VIA STRETCHER FOR XRAY.
[2020-03-09] MEDS: CEFTRIAXONE SOD 1 GM/NS 50 ML 50 ML IV SCH ×2 (09:35→20:49)
[2020-03-09] MEDS: METOPROLOL SUCCINATE 50 MG TAB XL PO SCH ×2 (09:37→17:00)
--- NOTE | 2020-03-09 10:16 | NUR ---
PATIENT IS BACK FROM RADIOLOGY.
[2020-03-09] MEDS ORDERED: SODIUM CHLORIDE 0.9% 250ML 0 ML ONE (10:29)
--- NOTE | 2020-03-09 11:09 | Diagnostic Imaging Report ---
EXAMINATION: SHOULDER RIGHT COMPLETE, HUMERUS RIGHT 2+VIEWS INDICATION: Fracture COMPARISON: None FINDINGS: Again visualized is an old right humeral neck fracture with associated callus formation. No acute fracture or dislocation. Alignment is near-anatomic. The soft tissues appear unremarkable. Increased interstitial opacities in the partially visualized right lung. IMPRESSION: Old right humeral neck fracture. No acute osseous injury. Increased interstitial opacities of the partially visualized right lung. Signed by: Max Cain MD on 03/09/2020 11:06 AM
[2020-03-09] MEDS: ONDANSETRON HCL INJ 2MG/ML 2ML 2 MG/ML VIAL IV PRN (13:40)
[2020-03-09] MEDS: MORPHINE SULFATE INJ 4 MG/ML INJ 1ML IV PRN (13:41)
--- NOTE | 2020-03-09 16:03 | NUR ---
SPOKE WITH SON ANT [phone] HE STATES HE IS AT WORK AND WOULD PREFER ONE OF HIS SISTER TO DECIDE ABOUT A SNF LOCATION. CALLED [facility] AND LEFT VOICE MAIL TO RETURN CALL. OFFERED [facility]. THEY WILL FOLLOW UP TOMORROW MORNING, EDUCATED HIM ABOUT IMM AND HE UNDERSTANDS AND STATES HE IS NOT GOING TO APPEAL DISCHARGE, DAUGHTER KEVAN SELBY [phone] CALLED AND STATES SHE WILL HAVE THE CONVERSATION ABOUT THE AREA FACILITIES AND CALL ME BACK TOMORROW WITH A DECISION.
[2020-03-09] MEDS: WARFARIN SOD 2 MG TAB PO SCH (17:43)
--- NOTE | 2020-03-09 19:30 | NUR ---
Report given to body corporate manager. Respiration even and unlabored without SOB. Call light in reach.
--- NOTE | 2020-03-09 19:57 | NUR ---
RECEIVED REPORT FROM 7AM NURSE. PATIENT CONTINUE RESTING, WILL CONTINUE TO MONITOR. BED ALARM ON.
[2020-03-09] MEDS: FLUOXETINE HCL 10 MG CAP PO SCH (20:49)
[2020-03-09] MEDS: MELATONIN 3 MG TAB PO SCH (20:49)
[2020-03-10] VITALS (9 sets, daily range): BP systolic 104–121; BP diastolic 58–74
--- NOTE | 2020-03-10 02:00 | NUR ---
PATIENT CONTINUE RESTING, NO COMPLAINTS OF PAIN, CALL LIGHT IN REACH. IV INFUSING, WILL CONTINUE TO MONITOR.
--- NOTE | 2020-03-10 04:00 | NUR ---
PATIENT CALL THE NURSES STATION TO GET IN BED, PATIENTS IN BED, RE-ORIENTED HER. CALL LIGHT REMAIN IN REACH. WILL CONTINUE TO MONITOR.
[2020-03-10 05:31] LABS: BASOPHILS # (AUTO) 0.1 (0.0-0.1); BASOPHILS % 0.7 % (0.0-1.0); EOSINOPHILS # (AUTO) 0.2 (0.0-0.4); EOSINOPHILS % 2.1 % (0.0-6.0); HEMATOCRIT 35.7 % (34.2-44.1); HEMOGLOBIN 10.4 g/dL (12.0-16.0); LYMPHOCYTES # (AUTO) 0.6 (1.0-3.2); LYMPHOCYTES % 7.3 % (18.0-39.1); MEAN CORPUSCULAR HEMOGLOBIN 26.6 pg (28-32); MEAN CORPUSCULAR HGB CONC 29.1 g/dL (31-35); MEAN CORPUSCULAR VOLUME 91.3 fL (81-99); MONOCYTES % 10.9 % (4.4-11.3); NEUTROPHILS # (AUTO) 6.9 (2.1-6.9); NEUTROPHILS % 78.7 % (38.7-80.0); PLATELET COUNT 372 x10e3/uL (140-360); RED BLOOD COUNT 3.91 x10e6/uL (3.6-5.1); RED CELL DISTRIBUTION WIDTH 16.8 % (11.7-14.4)
[2020-03-10 05:34] LABS: INR 2.61; PROTHROMBIN TIME 29.9 seconds (11.9-14.5)
[2020-03-10 05:47] LABS: ANION GAP 10.7 mmol/L (8-16); BLOOD UREA NITROGEN 13 mg/dL (7-26); BUN/CREATININE RATIO 21 (6-25); CALCIUM 8.1 mg/dL (8.4-10.2); CARBON DIOXIDE 22 mmol/L (22-29); CHLORIDE 109 mmol/L (98-107); CREATININE, SERUM 0.61 mg/dL (0.57-1.11); EST GLOMERULAR FILTRATION RATE > 60 ML/MIN (60-); GLUCOSE 102 mg/dL (74-118); POTASSIUM 3.7 mmol/L (3.5-5.1); SODIUM 138 mmol/L (136-145)
--- NOTE | 2020-03-10 07:05 | NUR ---
REPORT GIVEN TO AM NURSE.
[2020-03-10] MEDS: MORPHINE SULFATE INJ 4 MG/ML INJ 1ML IV PRN ×2 (07:23→13:16)
--- NOTE | 2020-03-10 07:23 | NUR ---
Bedside rounding completed and the pt. comp of pain (very bad right now). She was medicated for pain and is resting in bed at this time.
--- NOTE | 2020-03-10 07:42 | Progress Note ---
DATE: SUBJECTIVE: The patient is an 89-year-old female with a history of pubic ramus fracture, status post fall. The patient has a history of atrial fibrillation and also delirium on this admission. The patient also has urinary tract infection which is being treated by ceftriaxone. Currently, the patient is stable, has some confusion and also some sundowning. OBJECTIVE: VITAL SIGNS: Temperature is 97.8, pulse is 113, respirations 17, blood pressure is 108/71, and pulse oximetry of 91% on room air. HEENT: Normocephalic and atraumatic. Pupils are reactive. CVS: S1 and S2. Regularly irregular. Normal rate right now. ABDOMEN: Nontender and nondistended. EXTREMITIES: No clubbing. No cyanosis and/or no edema. Tenderness present in bilateral hips. LABORATORY VALUES: From today white count is 8.78, hemoglobin is 10.4 and hematocrit 35.7. Chemistry shows sodium 138, potassium 3.7, BUN of 13, creatinine 0.61. Urine cultures no growth at this time. IMAGING STUDIES: As mentioned yesterday. ASSESSMENT: Ms. Pascale Flores with. 1. Fall with displaced right superior ramus fracture and inferior pubic rami fracture. 2. Urinary retention. 3. Atrial fibrillation. 4. Hypertension. 5. Hyperlipidemia. PLAN: SNF consult has been done. Serology; ortiz virus is pending. Plan is to transfer to SNF and continue ongoing physical therapy. Continue to monitor the patient until then, further recommendation per clinical course. The patient's coags, INR is 2.61 and maintain current Coumadin status. MD KULDIP Morales/MODL /[id number]
[2020-03-10 08:01] LABS: PLATELET ESTIMATE SLIGHTLY INCREASED; PLATELET MORPHOLOGY COMMENT RARE EDTA CLUMPING
[2020-03-10 08:02] LABS: HYPOCHROMASIA SLIGHT; OVALOCYTES FEW; RBC MORPHOLOGY COMMENT NORMAL; SPHEROCYTES AL; TARGET CELLS N
--- NOTE | 2020-03-10 09:16 | NUR ---
SPOKE WITH DAUGHTERS YON AND GIORGI, CHOICE IS FOR [facility], FILED CHOICE IN CHART. COMPETED RTF, PASRR, AND COVID FORM AND FAXED CLINICALS PUT PACKET AT NURSES STATION FOR COMPLETION SOON ROOM IS ASSIGNED. EDUCATED FAMILY ABOUT MEDICARE LETTER IMM FILED IN CHART
[2020-03-10] MEDS: CEFTRIAXONE SOD 1 GM/NS 50 ML 50 ML IV SCH ×2 (09:30→20:36)
[2020-03-10] MEDS: METOPROLOL SUCCINATE 50 MG TAB XL PO SCH ×2 (09:30→16:53)
[2020-03-10] MEDS: SODIUM CHLORIDE 0.9% 1000ML 1,000 ML IV SCH (16:52)
[2020-03-10] MEDS: WARFARIN SOD 2 MG TAB PO SCH (16:54)
--- NOTE | 2020-03-10 19:00 | NUR ---
RECEIVED REPORT FROM PREVIOUS NURSE. CALL LIGHT WITHIN REACH. PATIENT IN BED.
[2020-03-10] MEDS: MELATONIN 3 MG TAB PO SCH (20:36)
[2020-03-10] MEDS: FLUOXETINE HCL 10 MG CAP PO SCH (20:36)
[2020-03-11] VITALS: BP 132/88
[2020-03-11] MEDS: MORPHINE SULFATE INJ 4 MG/ML INJ 1ML IV PRN ×2 (03:40→14:50)
[2020-03-11] MEDS: ONDANSETRON HCL INJ 2MG/ML 2ML 2 MG/ML VIAL IV PRN (03:40)
[2020-03-11 04:00] VITALS: BP 127/64
--- NOTE | 2020-03-11 06:46 | NUR ---
HOURLY ROUNDING PERFORMED. PATIENT IN BED. GAVE REPORT TO ONCOMING NURSE. CALL LIGHT WITHIN REACH.
[2020-03-11 07:52] VITALS: BP 116/62
--- NOTE | 2020-03-11 08:08 | Progress Note ---
DATE: SUBJECTIVE: The patient is an 89-year-old lady, came in with a fall, sustaining pubic ramus fracture. The patient continues to be weak, continues to be confused. Alert and oriented x1. No chest pain. No shortness of breath. The patient is working with therapy. Transfer to SNF is pending. OBJECTIVE: VITAL SIGNS: Temperature is 98.3, pulse of 100, respirations of 18, blood pressure is 127/64, pulse oximetry of 98% on room air. HEENT: Normocephalic and atraumatic. GENERAL: As mentioned above, alert and oriented x1. CVS: Irregularly irregular. ABDOMEN: Nontender and nondistended. EXTREMITIES: No clubbing, no cyanosis, trace edema. Positive for ecchymosis. Positive for bilateral hip pain and the patient has some pain in the right hip, which she clenches onto. LABORATORY VALUES: All stable from yesterday. Hemoglobin of 10.4, hematocrit 35.7. Chemistry; sodium 138 and chloride of 109. Coags are within normal limits. Last INR was 2.6. We will repeat one tomorrow. ASSESSMENT: Ms. Pascale Flores with: 1. Fall with displaced right superior ramus fracture. 2. Urinary retention. 3. Atrial fibrillation. 4. Hypertension. 5. Hyperlipidemia. 6. Age-related and physical debility. PLAN: Continue current management and transfer is pending. The patient is currently on sodium chloride. We will go ahead and discontinue it. Continue with warfarin, metoprolol, and fluoxetine as ordered. Further recommendation per clinical course. We will continue to monitor the patient and the patient is currently eating well. We will cut the fluids down to 50 mL an hour. MD KULDIP Morales/MODL /[id number]
[2020-03-11 08:36] VITALS: BP 116/62
--- NOTE | 2020-03-11 08:56 | NUR ---
FAXED COVID NEGATIVE RESULTS TO [facility] COVID FORM IN PACKET ALONG WITH NEGATIVE RESULTS
[2020-03-11] MEDS: METOPROLOL SUCCINATE 50 MG TAB XL PO SCH (08:58)
[2020-03-11] MEDS: SODIUM CHLORIDE 0.9% 1000ML 1,000 ML IV SCH (09:11)
[2020-03-11 11:14] VITALS: BP 116/70
--- NOTE | 2020-03-11 14:48 | NUR ---
DC ORDERS TO GO TO [facility] BEEN CALL[facility] FOR [facility] APPRENTICE
--- NOTE | 2020-03-11 15:00 | NUR ---
The pt. is discharged to [facility] in stable condition.
== END 2020-03-11 15:08 | DRG 536 ==
LOC: ER 16:17 → ERHOLD 19:07 → MED/SURG2 22:19
PROVIDERS: ADMIT Family Medicine; ATTEND Family Medicine
DX: S32.511A Fracture of superior rim of right pubis, initial encounter for closed fracture (principal); J90 Pleural effusion, not elsewhere classified; W19.XXXA Unspecified fall, initial encounter; I48.91 Unspecified atrial fibrillation; Z79.01 Long term (current) use of anticoagulants; R33.9 Retention of urine, unspecified; E78.5 Hyperlipidemia, unspecified; R54 Age-related physical debility; Y92.199 Unspecified place in other specified residential institution as the place of occurrence of the external cause; Z11.59 Encounter for screening for other viral diseases
CPT/HCPCS: 36415; 70450; 71045; 72125; 74176; 80048; 80053; 81001; 82550; 82553; 84484; 85025; 85610; 85730; 87040; 87086; 87635; 93005; 97139; 99285; J0696; J2270; J2405; J7030; J7050

== ENCOUNTER 2020-03-23 12:21 | Inpatient (IN) | payer MEDICARE, OTHER ==
[~2020-03-23] VITALS: Ht 162.6 cm; Wt 55.8 kg
[~2020-03-23 12:21] MED LIST changes: +FLUOXETINE HCL10 MG PO; +MELATONIN3 MG PO; +WARFARIN SODIUM2 MG PO
--- NOTE | 2020-03-23 13:27 | Diagnostic Imaging Report ---
EXAMINATION: CHEST SINGLE (PORTABLE) INDICATION: Pneumonia, altered mental status COMPARISON: Chest radiograph of 03/08/2020 FINDINGS: LINES/TUBES:Left chest pacer. LUNGS:The lungs are moderately inflated. There is perihilar fullness and indistinctness of the pulmonary vasculature. Interval increase in predominantly peripheral right lung hazy opacities. PLEURA:No pleural effusion or pneumothorax. MEDIASTINUM:Cardiomediastinal silhouette is stably enlarged. Atherosclerotic calcifications of the thoracic aorta. BONES/SOFT TISSUES:No acute osseous injury. ABDOMEN:No free air under the diaphragm. IMPRESSION: Interval increase in peripheral right lung hazy opacities which may represent pneumonia in the proper clinical setting. Unchanged cardiomegaly and pulmonary interstitial edema. Signed by: Max Cain MD on 03/23/2020 1:24 PM
[2020-03-23 13:38] LABS: BASOPHILS % 0.4 % (0.0-1.0); HEMATOCRIT 37.5 % (34.2-44.1); HEMOGLOBIN 11.1 g/dL (12.0-16.0); LYMPHOCYTES # (AUTO) 0.4 (1.0-3.2); LYMPHOCYTES % 6.8 % (18.0-39.1); MEAN CORPUSCULAR HGB CONC 29.6 g/dL (31-35); MEAN CORPUSCULAR VOLUME 87.8 fL (81-99); MONOCYTES # (AUTO) 0.4 (0.2-0.8); MONOCYTES % 7.7 % (4.4-11.3); NEUTROPHILS # (AUTO) 4.5 (2.1-6.9); NEUTROPHILS % 84.5 % (38.7-80.0); PLATELET COUNT 367 x10e3/uL (140-360); RED BLOOD COUNT 4.27 x10e6/uL (3.6-5.1); RED CELL DISTRIBUTION WIDTH 17.6 % (11.7-14.4)
--- NOTE | 2020-03-23 14:12 | NUR ---
MED ORDERS PLACED PER VO OF DR DUTTA/RBVO. ROCEPHIN 1 GRAM IV AZITHROMAX 500MG IVPB DECADRON 6MG IVP
[2020-03-23] MEDS ORDERED: CEFTRIAXONE SOD 1 GM VIAL ONE (14:13)
[2020-03-23] MEDS ORDERED: DEXAMETHASONE SOD PHOS 10 MG/1 ML VIAL ONE (14:13)
[2020-03-23] MEDS ORDERED: AZITHROMYCIN 500MG/NS 250 ML 250 ML ONE (14:13)
[2020-03-23] MEDS ORDERED: AZITHROMYCIN 500MG/NS 250 ML 250 ML IV ONE (14:15)
[2020-03-23] MEDS ORDERED: CEFTRIAXONE SOD 1 GM VIAL IV ONE (14:15)
[2020-03-23] MEDS ORDERED: DEXAMETHASONE SOD PHOS 10 MG/1 ML VIAL IV ONE (14:15)
[2020-03-23 14:16] LABS: ALANINE AMINOTRANSFERASE 11 IU/L (0-55); ALBUMIN 2.6 g/dL (3.5-5.0); ALBUMIN/GLOBULIN RATIO 0.6 (0.8-2.0); ALKALINE PHOSPHATASE 184 IU/L (40-150); ANION GAP 14.9 mmol/L (8-16); BLOOD UREA NITROGEN 24 mg/dL (7-26); BUN/CREATININE RATIO 39 (6-25); CALCIUM 8.4 mg/dL (8.4-10.2); CARBON DIOXIDE 24 mmol/L (22-29); CHLORIDE 102 mmol/L (98-107); CREATINE KINASE 127 IU/L (29-168); CREATININE, SERUM 0.61 mg/dL (0.57-1.11); EST GLOMERULAR FILTRATION RATE > 60 ML/MIN (60-); GLUCOSE 115 mg/dL (74-118); POTASSIUM 3.9 mmol/L (3.5-5.1); SODIUM 137 mmol/L (136-145)
--- NOTE | 2020-03-23 14:25 | Emergency Department Note ---
History of Present Illnes History of Present Illness Chief Complaint: COVID PUI History of Present Illness This is a 89 year old female arrived to the ED for skilled nursing for shortness of breath, pt has been on 4L of NC., in sure why. Pt poor historian, history limited. Per RN at [facility] patient has been struggling to breath for the past few days. Chief Complaint Comment ROOM AIR 95%, PLACED ON NC AT 4 LPM 96%, TACHYPNENIC. ALTERED. FROM [facility]. Historian: Patient Arrival Mode: NATIONAL EMS Treatment NEON ELECTRICIAN: See EMS Report Additional Treatment NEON ELECTRICIAN: [facility] History limited by: condition of the patient Onset (how long ago): day(s) Onset quality: unable to specify Duration (how long): day(s) Progression: unable to specify Past Medical/Family History Physician Review I have reviewed the patient's past medical and family history. Any updates have been documented here. Past Medical History Recent Fever: No Clinical Suspicion of Infectio: No New/Unexplained Change in Ment: No Past Medical History: A-Fib, Hyperlipedemia Other Medical History: eye surgery Past Surgical History: Cholecysctectomy, Hysterectomy, Pacer/AICD Other Surgery: EYE SX X6 Other Last Tetanus: >5 YEARS Review of Systems Review of Systems Constitutional: Reports as per HPI EENTM: Reports no symptoms Cardiovascular: Reports no symptoms Respiratory: Reports as per HPI, Reports pain with cough, Reports dyspnea Gastrointestinal: Reports no symptoms Genitourinary: Reports no symptoms Musculoskeletal: Reports no symptoms Integumentary: Reports no symptoms Neurological: Reports no symptoms Psychological: Reports no symptoms Endocrine: Reports no symptoms Hematological/Lymphatic: Reports no symptoms Physical Exam Related Data Allergies: Coded Allergies: iodine (Verified Allergy, Severe, ANAPHYLACTIC, 01/29/16) codeine (Verified Allergy, Intermediate, TACHYCARDIA, 01/29/16) Sulfa (Sulfonamide Antibiotics) (Verified Allergy, Unknown, RASH, 11/15/16) Triage Vital Signs Vital Signs Date Time Temp Pulse Resp B/P (MAP) Pulse Ox O2 Delivery O2 Flow Rate FiO2 03/23/20 12:23 96.6 61 26 108/82 95 Room Air 03/23/20 13:40 3.0 Vital signs reviewed: Yes Physical Exam CONSTITUTIONAL Constitutional: Present cachectic, Present ill appearing HENT HENT: Present normocephalic, Present atraumatic, Present oropharynx clear/moist, Present nose normal HENT L/R: Present left ext ear normal, Present right ext ear normal EYES Eyes: Reports PERRL, Reports conjunctivae normal NECK Neck: Present ROM normal PULMONARY Pulmonary: Present respiratory distress CARDIOVASCULAR Cardiovascular: Present regular rhythm, Present heart sounds normal, Present capillary refill normal, Present normal rate GASTROINTESTINAL Abdominal: Present soft, Present nontender, Present bowel sounds normal GENITOURINARY Genitourinary: Present exam deferred SKIN Skin: Present warm, Present dry MUSCULOSKELETAL Musculoskeletal: Present ROM normal NEUROLOGICAL Neurological: Present alert, Present no gross motor or sensory deficits PSYCHOLOGICAL Psychological: Present mood/affect normal, Present judgement normal Results Laboratory Result Diagram: 03/23/20 1310 03/23/20 1310 Laboratory Laboratory Tests Test 03/23/20 13:10 White Blood Count 5.31 x10e3/uL (4.8-10.8) Red Blood Count 4.27 x10e6/uL (3.6-5.1) Hemoglobin 11.1 g/dL (12.0-16.0) Hematocrit 37.5 % (34.2-44.1) Mean Corpuscular Volume 87.8 fL (81-99) Mean Corpuscular Hemoglobin 26.0 pg (28-32) Mean Corpuscular Hemoglobin Concent 29.6 g/dL (31-35) Red Cell Distribution Width 17.6 % (11.7-14.4) Platelet Count 367 x10e3/uL (140-360) Neutrophils (%) (Auto) 84.5 % (38.7-80.0) Lymphocytes (%) (Auto) 6.8 % (18.0-39.1) Monocytes (%) (Auto) 7.7 % (4.4-11.3) Eosinophils (%) (Auto) 0.0 % (0.0-6.0) Basophils (%) (Auto) 0.4 % (0.0-1.0) Neutrophils # (Auto) 4.5 (2.1-6.9) Lymphocytes # (Auto) 0.4 (1.0-3.2) Monocytes # (Auto) 0.4 (0.2-0.8) Eosinophils # (Auto) 0.0 (0.0-0.4) Basophils # (Auto) 0.0 (0.0-0.1) Absolute Immature Granulocyte (auto 0.03 x10e3/uL (0-0.1) Sodium Level 137 mmol/L (136-145) Potassium Level 3.9 mmol/L (3.5-5.1) Chloride Level 102 mmol/L (98-107) Carbon Dioxide Level 24 mmol/L (22-29) Anion Gap 14.9 mmol/L (8-16) Blood Urea Nitrogen 24 mg/dL (7-26) Creatinine 0.61 mg/dL (0.57-1.11) Estimat Glomerular Filtration Rate > 60 ML/MIN (60-) BUN/Creatinine Ratio 39 (6-25) Glucose Level 115 mg/dL (74-118) Calcium Level 8.4 mg/dL (8.4-10.2) Total Bilirubin 1.2 mg/dL (0.2-1.2) Aspartate Amino Transf (AST/SGOT) 32 IU/L (5-34) Alanine Aminotransferase (ALT/SGPT) 11 IU/L (0-55) Alkaline Phosphatase 184 IU/L (40-150) Creatine Kinase 127 IU/L (29-168) Total Protein 6.8 g/dL (6.5-8.1) Albumin 2.6 g/dL (3.5-5.0) Globulin 4.2 g/dL (2.3-3.5) Albumin/Globulin Ratio 0.6 (0.8-2.0) Lab results reviewed: Yes Imaging Imaging results reviewed: Yes Imaging Comments IMPRESSION: Interval increase in peripheral right lung hazy opacities which may represent pneumonia in the proper clinical setting. Unchanged cardiomegaly and pulmonary interstitial edema. Signed by: Max Cain MD on 03/23/2020 1:24 PM Assessment & Plan Medical Decision Making MDM 89-year-old female arrived to the ED with cough shortness of breath and subjective fevers. Concerns of possible [place] 19. Patient required 3 liters of nasal cannula secondary to her hypoxia. Patient given ceftriaxone and Zithromax Assessment & Plan Final Impression: (1) Pneumonia (2) Acute respiratory disease due to COVID-19 virus Depart Disposition: ADMITTED Last Vital Signs Date Time Temp Pulse Resp B/P (MAP) Pulse Ox O2 Delivery O2 Flow Rate FiO2 03/23/20 13:40 3.0 03/23/20 13:40 92 32 110/69 97 03/23/20 12:23 96.6 Room Air Home Meds Reported Medications Metoprolol Succinate (METOPROLOL SUCCINATE) 50 Mg Tab.er.24h, 50 MG PO BID, MG 03/09/20 Melatonin (MELATONIN) 3 Mg Tablet, 3 MG PO HS, TAB 03/09/20 Warfarin Sodium (WARFARIN SODIUM) 2 Mg Tablet, 2 MG PO DAILY, TAB 03/09/20 Fluoxetine Hcl (FLUOXETINE HCL) 10 Mg Capsule, 10 MG PO HS, #30 CAP 03/09/20 Metoprolol Succinate (METOPROLOL SUCCINATE) 50 Mg Tab.er.24h, 50 MG PO BID 09/28/19 Warfarin Sodium (WARFARIN SODIUM) 2.5 Mg Tablet, 2.5 MG PO .six days a week do not take on friday09/28/19 Medications in the ED Ceftriaxone Sodium 1 gm STK-MED ONCE .ROUTE ; Start 03/23/20 at 14:13; Stop 03/23/20 at 14:08; Status DC Dexamethasone Sodium Phosphate 10 mg STK-MED ONCE .ROUTE ; Start 03/23/20 at 14:13; Stop 03/23/20 at 14:08; Status DC Azithromycin 250 ml @ ud STK-MED ONCE .ROUTE ; Start 03/23/20 at 14:13; Stop 03/23/20 at 14:08; Status DC Ceftriaxone Sodium 1 gm ONCE ONCE IV ; Start 03/23/20 at 14:15; Stop 03/23/20 at 14:16; Status UNV Azithromycin 250 ml @ 200 mls/hr NOW ONCE IV ; Start 03/23/20 at 14:15; Stop 03/23/20 at 15:29; Status UNV Dexamethasone Sodium Phosphate 6 mg ONCE ONCE IV ; Start 03/23/20 at 14:15; Stop 03/23/20 at 14:16; Status UNV GABO DUTTA DO Mar 23, 2020 14:25
[2020-03-23] MEDS ORDERED: ETOMIDATE 2 MG/ML 10 ML INJ IV ONE (14:51)
[2020-03-23] MEDS ORDERED: SUCCINYLCHOLINE CHLORIDE 20 MG/ML 10ML VIAL ONE (14:51)
[2020-03-23] MEDS ORDERED: MIDAZOLAM HCL 2 MG/2 ML VIAL ONE (14:51)
[2020-03-23] MEDS ORDERED: CEFTRIAXONE SOD 1 GM/NS 50 ML 50 ML IV ONE (15:00)
--- NOTE | 2020-03-24 01:11 | History and Physical ---
HISTORY OF PRESENT ILLNESS: This is an 89-year-old female, who was recently sent to the rehab facility and in the rehab facility, the patient deteriorated, had some fevers, pneumonic processes was probably identified. The patient was sent to the emergency room and here, the patient is under investigation for possible COVID with fever and symptomatologies of COVID and x-ray findings of possible COVID. PAST MEDICAL HISTORY: History of hypertension, history of cardiac pacemaker, history of bilateral osteoarthritis of the knee, history of depression, history of chronic intake of warfarin too. ALLERGIES: ALLERGIC TO CODEINE AND IODINE. PAST SURGICAL HISTORY: History of pacemaker placement, history of hysterectomy with unilateral salpingo-oophorectomy and cholecystectomy, pacemaker was placed in 2017. SOCIAL HISTORY: No EtOH. No IV drug abuse. No history of smoking. The patient is a resident of a long-term assisted living facility and also currently was placed in the rehab facility for rehabilitation secondary to acute pelvic fractures. REVIEW OF SYSTEMS: Negative for chest pain. Positive for shortness of breath. Positive for lethargy. Positive for fatigue, generalized malaise. No nausea. No vomiting. No constipation. No rectal bleeding. No hematochezia. No hematemesis. PHYSICAL EXAMINATION: VITAL SIGNS: The patient is febrile, otherwise vitals stable. HEENT: Normocephalic, atraumatic. Pupils reactive. CVS: S1 and S2 are normal. LUNGS: Decreased air entry. ABDOMEN: Soft, nontender, nondistended. EXTREMITIES: No clubbing, no cyanosis, and/or no edema. LABORATORY VALUES: White count is normal. Hemoglobin and hematocrit are normal. BUN and creatinine are within normal limits. X-ray shows patchy infiltrate in bilateral lungs. ASSESSMENT: Ms. Pascale Flores is an 89-year-old female with: 1. Pneumonia. 2. Patient under investigation, possibly coronavirus disease 2019. PLAN: Azithromycin and Rocephin will be started. The patient also if COVID positive, can be started on 6 mg of Decadron, oxygen supplementation, institute Lovenox and/or start back on her warfarin. Further recommendation per clinical course. We will continue to monitor the patient and continue her oxygen status and maintain O2 sats above 92%. MD KULDIP Morales/MODL /[id number]
[2020-03-24] MEDS: ACETAMINOPHEN 325 MG/10 ML UDC PO PRN ×2 (02:30→16:24)
[2020-03-24] MEDS ORDERED: ACETAMINOPHEN 325 MG TAB PO PRN (02:30)
[2020-03-24] MEDS ORDERED: ACETAMINOPHEN 325 MG/10 ML UDC NG PRN (02:30)
[2020-03-24] MEDS ORDERED: ACETAMINOPHEN 325 MG/10 ML UDC ONE (02:32)
[2020-03-24] MEDS ORDERED: COLACE100 MG PO (05:01)
[2020-03-24] MEDS ORDERED: ACETAMINOPHEN325 M1 PO ×2 (05:01)
[2020-03-24] MEDS ORDERED: LIDOCAINE PAIN1 EACH TOP (05:03)
[2020-03-24] MEDS ORDERED: ULTRAM 50MG50 MG PO (05:05)
[2020-03-24] MEDS ORDERED: ZOFRAN4 MG PO (05:05)
[2020-03-24] MEDS ORDERED: WARFARIN SODIUM2 MG PO (05:06)
[2020-03-24] MEDS ORDERED: XOPENEX0.63 MG/3 INH (05:07)
[2020-03-24] MEDS: METOPROLOL SUCCINATE 50 MG TAB XL PO SCH ×2 (05:09→19:01)
[2020-03-24] MEDS ORDERED: METOPROLOL SUCCINATE 50 MG TAB XL ONE (05:15)
[2020-03-24 05:56] LABS: BASOPHILS % 0.2 % (0.0-1.0); HEMOGLOBIN 11.1 g/dL (12.0-16.0); LYMPHOCYTES # (AUTO) 0.2 (1.0-3.2); MEAN CORPUSCULAR HEMOGLOBIN 25.9 pg (28-32); MEAN CORPUSCULAR HGB CONC 29.2 g/dL (31-35); MEAN CORPUSCULAR VOLUME 88.6 fL (81-99); MONOCYTES # (AUTO) 0.3 (0.2-0.8); MONOCYTES % 6.3 % (4.4-11.3); NEUTROPHILS # (AUTO) 3.8 (2.1-6.9); NEUTROPHILS % 89.3 % (38.7-80.0); PLATELET COUNT 318 x10e3/uL (140-360); RED BLOOD COUNT 4.29 x10e6/uL (3.6-5.1); RED CELL DISTRIBUTION WIDTH 17.6 % (11.7-14.4)
[2020-03-24 06:41] LABS: ALANINE AMINOTRANSFERASE 12 IU/L (0-55); ALBUMIN 2.5 g/dL (3.5-5.0); ALBUMIN/GLOBULIN RATIO 0.6 (0.8-2.0); ALKALINE PHOSPHATASE 175 IU/L (40-150); ANION GAP 14.6 mmol/L (8-16); BLOOD UREA NITROGEN 29 mg/dL (7-26); BUN/CREATININE RATIO 43 (6-25); CALCIUM 8.2 mg/dL (8.4-10.2); CARBON DIOXIDE 24 mmol/L (22-29); CHLORIDE 107 mmol/L (98-107); CREATININE, SERUM 0.67 mg/dL (0.57-1.11); EST GLOMERULAR FILTRATION RATE > 60 ML/MIN (60-); GLUCOSE 165 mg/dL (74-118); POTASSIUM 3.6 mmol/L (3.5-5.1); SODIUM 142 mmol/L (136-145)
[2020-03-24 11:31] LABS: HYPOCHROMASIA MODERATE; RBC MORPHOLOGY COMMENT ABNORMAL
--- NOTE | 2020-03-24 15:49 | NUR ---
Pt had large BM, mepilex placed on sacrum. No skin breakdown noted. Pt reports pain to bilateral knees. Pt turned to R side with wedges.
[2020-03-24] MEDS ORDERED: NON-FORMULARY MEDICATION (Ondansetron Hcl* (Zofran*) 4 MG) PO PRN (16:30)
[2020-03-24] MEDS ORDERED: ONDANSETRON HCL 4 MG ORAL DISINTEGRATING TAB PO PRN (16:45)
--- NOTE | 2020-03-24 17:55 | Progress Note ---
DATE: SUBJECTIVE: The patient is an 89-year-old lady, who comes in with pneumonia. The patient is found to have COVID positive, currently sleeping. No chest pain. No nausea, no vomiting. As per nursing, the patient recently had pubic rami fracture and [facility], comes in with COVID-19 virus. OBJECTIVE: VITAL SIGNS: Temperature is 98.8, pulse of 103, pulse oximetry of 96% on 3 L of oxygen, blood pressure is 129/82, and respirations 26. HEENT: Normocephalic, atraumatic. Pupils reactive. CVS: S1, S2 are irregular. LUNGS: Decreased air entry. ABDOMEN: Soft, nontender. EXTREMITIES: No clubbing, no cyanosis. Trace edema. LABORATORY VALUES: White count is 4.28, hemoglobin is 11.1, hematocrit is 38, and platelet count is 318. Chemistry, sodium 142, potassium 3.6, creatinine 0.67, and BUN of 29. Total bilirubin normal. AST and ALT are normal. Total protein 6.5. Serology, coronavirus suspected. MICROBIOLOGY: None done. IMAGING: Shows typical pattern of COVID-19 pneumonia. ASSESSMENT: Ms. Pascale Flores with: 1. COVID-19 pneumonia. 2. Atrial fibrillation. 3. Hypoxemia. 4. Atrial fibrillation. 5. Hyperlipidemia. PLAN: Continue back on home medications. Also, we will start back her on Lovenox for now. A 6 mg of Decadron, azithromycin, and Rocephin will be started, and also a Pulmonary consult will be done. Further recommendation per clinical course. MD KULDIP Morales/MODL /[id number]
[2020-03-24 18:06] LABS: INR 2.38; PROTHROMBIN TIME 27.8 seconds (11.9-14.5)
[2020-03-24] MEDS: CEFTRIAXONE SOD 1 GM/NS 50 ML 50 ML IV SCH (18:40)
[2020-03-24] MEDS: AZITHROMYCIN 500MG/NS 250 ML 250 ML IV SCH (19:01)
[2020-03-24] MEDS: MELATONIN 3 MG TAB PO SCH (22:04)
[2020-03-24] MEDS: FLUOXETINE HCL 10 MG CAP PO SCH (22:04)
[2020-03-25] VITALS (12 sets, daily range): BP systolic 97–157; BP diastolic 54–110
--- NOTE | 2020-03-25 03:15 | NUR ---
Admitted to room 185 via stretcher. Alert and orient to name, hospital, diagnosis PNA. Pt is COVID positive. Pt has decrease awareness of COVID. Pt skin warm and intact. O2 @4L sat 95%. Pt denies pain at this time. Last BM yesterday, denies dysuria. Oriented to room, call light within reach. No acute distress noted. Will continue to monitor.
[2020-03-25 05:36] LABS: INR 2.65; PROTHROMBIN TIME 30.3 seconds (11.9-14.5)
[2020-03-25 07:50] LABS: ANION GAP 15.8 mmol/L (8-16); BLOOD UREA NITROGEN 32 mg/dL (7-26); BUN/CREATININE RATIO 59 (6-25); CALCIUM 8.5 mg/dL (8.4-10.2); CARBON DIOXIDE 24 mmol/L (22-29); CHLORIDE 109 mmol/L (98-107); CREATININE, SERUM 0.54 mg/dL (0.57-1.11); EST GLOMERULAR FILTRATION RATE > 60 ML/MIN (60-); GLUCOSE 127 mg/dL (74-118); POTASSIUM 3.8 mmol/L (3.5-5.1); SODIUM 145 mmol/L (136-145)
[2020-03-25] MEDS: LIDOCAINE 4% PATCH TP SCH (07:53)
[2020-03-25] MEDS: METOPROLOL SUCCINATE 50 MG TAB XL PO SCH ×2 (07:54→18:21)
[2020-03-25] MEDS: TRAMADOL HCL 50 MG TAB PO PRN ×2 (07:57→09:23)
[2020-03-25] MEDS: DOCUSATE SODIUM 100 MG CAP PO SCH (07:57)
--- NOTE | 2020-03-25 08:48 | Progress Note ---
DATE: SUBJECTIVE: An 89-year-old female, who came in with COVID pneumonia. Currently feeling better. She feels no shortness of breath and no apparent problems with breathing. OBJECTIVE: VITAL SIGNS: Temperature is 97.8, pulse of 100, respirations of 20, and pulse oximetry of 95% on 4 L of oxygen. HEENT: Normocephalic and atraumatic. Pupils are reactive. CVS: S1 and S2 normal. Regular rate and rhythm. LUNGS: Decreased air entry into all lung [place]. EXTREMITIES: No clubbing. No cyanosis. No edema. LABORATORY VALUES: None done today. Hemoglobin yesterday was 11.1 and hematocrit of 38. Chemistries are pending. Coags; INR is 2.65. MICROBIOLOGY: None done. ASSESSMENT: Ms. Pascale Flores with: 1. COVID-19 pneumonia. 2. Atrial fibrillation. 3. Hypoxemia. 4. Hyperlipidemia. PLAN: Continue with Rocephin and azithromycin. Labs to be checked today. The patient is also on 6 mg of Decadron. Pulmonary consult is on-board. Continue to monitor the patient. The patient is improving. Further recommendation per clinical course. We will need physical therapy and back to SNF when cleared. The patient needs continuous therapy for pubic fracture. MD KULDIP Morales/MODL /[id number]
[2020-03-25] MEDS ORDERED: ENOXAPARIN 30 MG/0.3 ML SYR SC SCH ×2 (09:00→21:00)
[2020-03-25] MEDS ORDERED: NON-FORMULARY MEDICATION (Lidocaine (Lidocaine Pain Relief) 1 PATCH) TOP SCH (09:00)
[2020-03-25] MEDS: DEXAMETHASONE PHOS 4MG/ML 5ML MULTIDOSE VIAL IV SCH (09:23)
--- NOTE | 2020-03-25 09:30 | NUR ---
Spoke with Dr. Callejas to report pt HR is elevated up to 160s AFIB with RVR and pt is hypoxic. O2 sat is 91 to 84% on nonrebreather. Received orders to give metoprolol 2.5mg and consult Dr. Hunter. Paged Dr. Martínez and Dr. Fonseca and waiting for call back.
[2020-03-25] MEDS ORDERED: ALBUTEROL SULFATE HFA 8GM INHALATION AEROSOL INH PRN (09:45)
--- NOTE | 2020-03-25 09:45 | NUR ---
Spoke with Dr. Fonseca and received orders to give digoxin 0.5mg PO x1 at this time, metoprolol 50mg 50mg q6hrs hold HR <70. Spoke with Dr. Martínez and received orders to transfer to ICU and to have ER intubate pt.
[2020-03-25] MEDS ORDERED: METOPROLOL TARTRATE INJ 1 MG/ML VIAL IV ONE (10:00)
--- NOTE | 2020-03-25 10:15 | NUR ---
Spoke with daughter at this time to update on pt change in status.
[2020-03-25] MEDS ORDERED: METOPROLOL TARTRATE INJ 1 MG/ML VIAL IV PRN (10:30)
[2020-03-25] MEDS ORDERED: DIGOXIN 0.125 MG TAB PO ONE (10:30)
[2020-03-25 10:57] LABS: ABG HCO3 14 mmol/L (22-26); ABG PCO2 33 mmHg (35-45); ABG PH 7.23 (7.35-7.45); ABG PO2 99 mmHg (80-105)
[2020-03-25] MEDS ORDERED: DIGOXIN INJ 0.25 MG/ML 2 ML AMP IV ONE ×2 (11:00→11:30)
--- NOTE | 2020-03-25 11:43 | Consultation ---
DATE OF CONSULTATION: 03/25/2020 REASON FOR CONSULTATION: Atrial fibrillation. CHIEF COMPLAINT: Shortness of breath. HISTORY OF PRESENT ILLNESS: This is an 89-year-old female, well known to practice with history of chronic atrial fibrillation, status post pacemaker implantation, hypertension, hyperlipidemia, glaucoma, and osteoarthritis. The patient presents from [facility] with apparent complaints of shortness of breath, weakness, fevers, was transferred to [facility] ER with noted positive COVID-19. Cardiology was consulted given her history of atrial fibrillation. The patient is seen with respiratory failure on non-rebreather, obtunded, cyanotic appearing. PAST MEDICAL HISTORY: Sick sinus syndrome status post pacemaker implantation, chronic atrial fibrillation, hypertension, hyperlipidemia, glaucoma, and osteoarthritis. PAST SURGICAL HISTORY: Hysterectomy, cholecystectomy, single-chamber pacemaker implantation [facility] on 11/2016. FAMILY HISTORY: Mother at age 102 from old age. Father at age 59 from heart disease. SOCIAL HISTORY: She is a . She is a retired nurse tech. She has no alcohol use or tobacco use. ALLERGIES: TO CODEINE, IODINE. REVIEW OF SYSTEMS: Unable to obtain. PHYSICAL EXAMINATION: GENERAL: Elderly female, chronically ill-appearing, cyanotic appearing, and obtunded. VITAL SIGNS: Height 64 inches, weight 123 pounds, temperature 97, pulse 154, respiratory rate 28, blood pressure 143/95, pulse ox 92% on non-rebreather. SKIN: Cyanotic appearing. HEENT: Normocephalic. Pupils are equal and reactive. HEART: Irregular rhythm, tachycardic, pacemaker on the left side. LUNGS: Rhonchi throughout, on non-rebreather. ABDOMEN: Soft, nontender, and nondistended. VASCULAR: Bilateral radial pulses and DP and PT pulses bilaterally. NEUROLOGIC: Unable to assess. The patient is lethargic. LABORATORY DATA: Sodium 145, potassium 3.8, chloride 109, BUN 32, creatinine 0.5. White count 4, hemoglobin 11, hematocrit 38, platelets 318. INR 2.3. COVID positive, COVID PCR detected. Chest x-ray with right lower lung opacities. ASSESSMENT: COVID-19 pneumonia, respiratory failure, chronic atrial fibrillation, status post pacemaker implantation. PLAN: The patient presents from [facility] with shortness of breath, hypoxia, fevers, noted to be COVID positive. For rate control, we will give digoxin IV. Continue metoprolol. However, we will also add p.r.n. IV. OAC therapy, Coumadin. Most recent INR 2.3, goal of 2 to 3. The patient is in respiratory distress. Will soon be intubated by Pulmonary Service. We will continue to follow. Thank you very much for this consult. Well known to our service Supportive care Agree with note Dictated by Harpal Schulte NP Luis Carlos Fonseca MD DC/GEORGE /[id number]
--- NOTE | 2020-03-25 11:52 | NUR ---
RECEIVED FROM [facility] 185 - ORALLY INTUBATED AT 1130. MEDICATED WITH ETAMIDATE ANS SUCCINYLCHOLINE PRIOT TO INTUBATION AND VERSED AFTERWARDS
[2020-03-25] MEDS: METOPROLOL TARTRATE 50 MG TAB PO SCH ×2 (12:00→18:21)
--- NOTE | 2020-03-25 12:57 | NUR ---
Nutrition Intervention Note RD Recommendation(s) for Physician: Place Small bore nasoenteric tube to the small bowel. Vital AF at 60ml/hr as tolerated via nasoenteric tube. Plan of Care: RD following, monitoring for tolerance and adequacy Nutrition reason for involvement: Nutrition Risk Trigger - MST Now with change of status and ET tube placement. RD Assessment Initial encounter with patient. Pt being transferred to PACU at time of visit. Pt being orally intubated in PACU. Unable to obtain a nutrition Hx for this reason. Pt will likely require nutrition support with EN preferably. Principal Problems/Diagnoses: Pneumonia possibly due to COVID - 19 PMH:HTN, cardiac pacemaker, cholecystectomy, GI:soft Skin:intact Labs: 03/25/2020) Biochemical data reviewed Meds: (03/25/2020) Warfarin Ht:64 in. Wt:123.03lbs BMI:21.1kg/m2 IBW:120lbs Malnutrition Evaluation (03/25/2020) The patient does not meet criteria for a specified degree of malnutrition at this time. Will re-evaluate at follow-up as appropriate. Nutrition Prescription (Diet Order): Cardiac diet ordered, but Pt is being intubated Estimated Nutritional Needs: 9224-9503 calories/day (25-30 kcal/kg/BW) 56-84g protein/day (1-1.5 g pro/kg/BW) Diet Adequacy: Not meeting calorie needs, Not meeting protein needs) Diet Education Needs Assessment: Diet education not indicated, patient on temporary/transition diet. Nutrition Care Level: High Nutrition Diagnosis: Swallowing difficulty related to impaired movement of food liquids from within the oral cavity to the stomach as evidenced by oral intubation. Goal: Patient will meet 75-100% of estimated needs by follow up Progress: ( N/A) Interventions: Commercial food, Composition, Rate, Route Monitoring/Evaluation: Total energy intake, Total protein intake, Formula/Solution, IVF, Prescription medication, Weight change Signed: Edison Adair RD, LD, [facility]
--- NOTE | 2020-03-25 12:58 | Operative Report ---
DATE OF PROCEDURE: SURGEON: Lefty Gonsalez MD PROCEDURE: Endotracheal intubation with a GlideScope. PREOPERATIVE DIAGNOSIS: Respiratory failure. POSTOPERATIVE DIAGNOSIS: Respiratory failure. CONSENT: Consent was deemed emergent due to respiratory distress. MEDICATIONS: Etomidate 20 mg, succinylcholine 100 mg, and Versed 2 mg. PROCEDURE: The patient was placed in a supine position. The patient was preoxygenated with 100% oxygen and an Ambu bag to increase the saturations into the low 90s. A GlideScope was used with a 3-0 Mac blade. The glottis was visualized and a 7.5 ET tube was passed on the first attempt. There was good CO2 return with equal breath sounds bilaterally. COMPLICATIONS: None. ESTIMATED BLOOD LOSS: None. Lefty Gonsalez MD [facility]/MODL /[id number]
--- NOTE | 2020-03-25 13:48 | Diagnostic Imaging Report ---
EXAMINATION: CHEST SINGLE (PORTABLE) INDICATION: ^INTUBATED ^[id number] ^1320 COMPARISON: 03/23/2020 FINDINGS: AP view TUBES and LINES: Interval intubation with endotracheal tube overlying the mid trachea, 4 cm above the lupillo. Unchanged single lead pacemaker overlying the right ventricle. Infradiaphragmatic NG/OG tube. Tip is outside the field of view. LUNGS/PLEURA: Interval development of a large left pneumothorax with mild shifting of the mediastinum towards the right and resulted in complete collapse of the left lung. Multifocal pneumonia in the right lung. No pleural effusions. HEART AND MEDIASTINUM: The cardiomediastinal silhouette is unremarkable.. BONES AND SOFT TISSUES: No acute osseous lesion. Soft tissues are unremarkable. UPPER ABDOMEN: No free air under the diaphragm. IMPRESSION: Interval intubation with endotracheal tube in adequate position. Interval development of a large left pleural effusion with complete collapse of the left lung and mild rightward deviation of the mediastinum suggestive of some degree of tension. Unchanged multifocal pneumonia. These findings were communicated to Dr. Yu on 03/25/2020 at 1:40 PM. Signed by: Dr. Loida Barker M.D. on 03/25/2020 1:45 PM
[2020-03-25 14:18] LABS: ABG HCO3 16 mmol/L (22-26); ABG PCO2 31 mmHg (35-45); ABG PH 7.32 (7.35-7.45); ABG PO2 107 mmHg (80-105)
--- NOTE | 2020-03-25 14:18 | Consultation ---
DATE OF CONSULTATION: Pulmonary Consultation The patient of Dr. Antonio Callejas and Dr. Fonseca. HISTORY OF PRESENT ILLNESS: Unfortunate 89-year-old woman, resident of [facility], admitted with shortness of breath, and weakness and fever, found to be COVID positive, was admitted on the 2nd. PAST MEDICAL HISTORY: She has a history of chronic atrial fibrillation, history of pacemaker in the past, hypertension, hyperlipidemia, glaucoma, osteoarthritis. PAST SURGICAL HISTORY: She has had hysterectomy, cholecystectomy, and pacemaker implantation in the past. FAMILY HISTORY: Positive for longevity in her mother, but premature of father. SOCIAL HISTORY: Nonsmoker. No alcohol. ALLERGIES: TO CODEINE AND IODINE. HOME MEDICATIONS: Have included metoprolol, warfarin, fluoxetine, Colace, recently on Levaquin, melatonin, and tramadol. PHYSICAL EXAMINATION: GENERAL: A frail white female, intubated for respiratory distress on transfer to the [facility] ICU. VITAL SIGNS: Temperature 97.7, T-max 99.5, pulse 130 and irregular, respirations 22. She is intubated orally and NG tube is in place. HEAD: There is some temporal wasting, appears elderly. LUNGS: Diminished breath sounds. HEART: Irregular rhythm. ABDOMEN: Nontender. EXTREMITIES: Nonedematous. IMPRESSION: Severe COVID pneumonia. PLAN: Continue supportive care. At the request of the power of trademark attorney, the patient is now intubated, on mechanical life support. Continue to use [place] protocol as tolerated. Tube feeding. She is currently anticoagulated with Protonix. Prognosis is grim. Thank you for this kind referral. Harpal Yu MD [facility]/MODL /[id number]
--- NOTE | 2020-03-25 14:18 | Consultation ---
DATE OF CONSULTATION: ADDENDUM: The patient was found to have a left pneumothorax chest tube will be placed MD DAYANA Lew/GEORGE /[id number] MTDD
[2020-03-25] MEDS ORDERED: LIDOCAINE HCL 2% LOCAL 20 ML VIAL ONE (14:51)
[2020-03-25] MEDS ORDERED: VECURONIUM BROMIDE FOR INJ 20 MG VIAL ONE (14:59)
--- NOTE | 2020-03-25 16:27 | Diagnostic Imaging Report ---
EXAMINATION: CHEST SINGLE (PORTABLE) INDICATION: ^Left chest tube placement ^[id number] ^1600 COMPARISON: Chest radiograph 03/25/2020 1320 9:00 PM FINDINGS: AP view TUBES and LINES: Interval placement of left-sided chest tube with tip overlying the medial aspect of the inferior cardiac silhouette. Unchanged single lead pacemaker. Endotracheal and NG/OG tubes remain in stable. LUNGS: Interval significant decrease in size of the left pneumothorax with reexpansion of the left lung. Persistent bilateral multifocal pneumonia. PLEURA: No pleural effusion or pneumothorax. HEART AND MEDIASTINUM: The cardiomediastinal silhouette is unremarkable.. BONES AND SOFT TISSUES: No acute osseous lesion. Small amount of subcutaneous emphysema along the left chest wall. UPPER ABDOMEN: No free air under the diaphragm. IMPRESSION: Interval placement of a left-sided chest tube with tip overlying the inferior cardiac silhouette, medially. Tip cannot be localized on the frontal single x-ray. Interval significant decrease in size of the left pneumothorax, now small with a gap of 2.6 cm resulting in re-expansion of the left lung. Unchanged bilateral multifocal pneumonia. Signed by: Dr. Loida Barker M.D. on 03/25/2020 4:24 PM
[2020-03-25] MEDS ORDERED: WARFARIN SOD 2 MG TAB PO SCH (17:00)
[2020-03-25] MEDS: AZITHROMYCIN 500MG/NS 250 ML 250 ML IV SCH (18:21)
[2020-03-25] MEDS: ASCORBIC ACID 500 MG TAB PO SCH (18:21)
[2020-03-25] MEDS: CEFTRIAXONE SOD 1 GM/NS 50 ML 50 ML IV SCH (18:21)
--- NOTE | 2020-03-25 19:39 | Consultation ---
DATE OF CONSULTATION: HISTORY OF PRESENT ILLNESS: Ms. Flores is an 89-year-old white female, who comes in to the emergency room with shortness of breath. The patient who is an 89-year-old with history of atherosclerotic heart disease, coronary artery disease, sick sinus syndrome, pacemaker implantation, chronic atrial fibrillation, hypertension, hyperlipidemia, glaucoma, osteoarthritis, hysterectomy, cholecystectomy, single chamber pacemaker implantation, [place] on 11/2016, comes into the emergency room with shortness of breath. came to the emergency room from [facility] with shortness of breath. Her COVID-19 was positive. The patient is noncommunicative. History was taken mainly from the chart. PHYSICAL EXAMINATION: VITAL SIGNS: Temperature 97.4, heart rate 102, respirations 18, and blood pressure 110/74. HEENT: Normocephalic. NECK: Supple. CHEST: Few crackles. COR: S1-S2, no murmurs. ABDOMEN: Soft, bowel sounds present. No tenderness. EXTREMITIES: No edema. LABORATORY DATA: White count is 4.28, hemoglobin 11.1. Sodium 145, potassium 3.8, creatinine 0.54. Her chest x-ray showed that she has endotracheal intubation and tracheal tube showed large left pleural effusion with complete collapse of the left lung with deviation . This was discussed with Dr. Yu and he consulted above, she is currently noncommunicative. IMPRESSION: COVID-19, present on admission. Pneumonia, present on admission, concern about aspiration, large pleural effusion. Agree with dexamethasone. Agree to continue all home medication, azithromycin , Rocephin 1 g daily. The patient is currently on Coumadin. Cardiology was consulted chest tube placement. Prognosis is guarded. Supportive care as ordered. MD KAMILAH Mcdonald/GEORGE /[id number]
[2020-03-25] MEDS: FLUOXETINE HCL 10 MG CAP PO SCH (21:00)
[2020-03-25] MEDS: MELATONIN 3 MG TAB PO SCH (21:00)
[2020-03-26] VITALS (13 sets, daily range): BP systolic 87–123; BP diastolic 47–65
[2020-03-26] MEDS: MIDAZOLAM HCL 5MG/ML 10ML VIAL 100 ML IV PRN (04:47)
[2020-03-26] MEDS: METOPROLOL TARTRATE 50 MG TAB PO SCH ×4 (06:00→17:50)
--- NOTE | 2020-03-26 06:01 | Diagnostic Imaging Report ---
EXAMINATION: CHEST SINGLE (PORTABLE) INDICATION: ^INTUBATED COMPARISON: 03/25/2020 FINDINGS: AP view TUBES and LINES: Unchanged endotracheal tube, nasogastric tube, and left basilar chest tube. Left mechanical cardiac device. LUNGS: Unchanged diffuse pulmonary airspace disease. PLEURA: Unchanged small left pneumothorax with maximum apical air gap of 2.6 cm. No radiographic evidence of tension. HEART AND MEDIASTINUM: The cardiomediastinal silhouette is unchanged. BONES AND SOFT TISSUES: Interval development of prominent subcutaneous emphysema of the left chest wall and left base of the neck. UPPER ABDOMEN: No free air under the diaphragm. IMPRESSION: 1. Unchanged persistent left pneumothorax status post chest tube placement. Interval development of large subcutaneous emphysema of the left chest wall and left base of the neck. Correlate with chest tube function. 2. Unchanged multifocal pulmonary airspace disease consistent with viral pneumonia. Signed by: Jaime Manzo MD on 03/26/2020 5:58 AM
[2020-03-26 06:32] LABS: BASOPHILS % 0.1 % (0.0-1.0); HEMATOCRIT 41.3 % (34.2-44.1); HEMOGLOBIN 11.9 g/dL (12.0-16.0); LYMPHOCYTES # (AUTO) 0.2 (1.0-3.2); LYMPHOCYTES % 1.6 % (18.0-39.1); MEAN CORPUSCULAR HEMOGLOBIN 25.9 pg (28-32); MEAN CORPUSCULAR HGB CONC 28.8 g/dL (31-35); MEAN CORPUSCULAR VOLUME 89.8 fL (81-99); MONOCYTES # (AUTO) 0.2 (0.2-0.8); MONOCYTES % 2.3 % (4.4-11.3); NEUTROPHILS # (AUTO) 9.2 (2.1-6.9); NEUTROPHILS % 95.6 % (38.7-80.0); PLATELET COUNT 261 x10e3/uL (140-360); RED CELL DISTRIBUTION WIDTH 17.8 % (11.7-14.4)
[2020-03-26 06:54] LABS: INR 3.7; PROTHROMBIN TIME 39.6 seconds (11.9-14.5)
[2020-03-26 07:01] LABS: CLARITY,URINE CLOUDY (CLEAR); COLOR,URINE BROWN (YELLOW)
[2020-03-26 07:02] LABS: BILIRUBIN,URINE SMALL (NEGATIVE); KETONES,URINE NEGATIVE (NEGATIVE); LEUKOCYTE ESTERASE ,URINE LARGE (NEGATIVE); NITRITE,URINE NEGATIVE (NEGATIVE); PROTEIN,URINE DIPSTICK 2+ (NEGATIVE); URINE UROBILINOGEN 1 mg/dL (0.2 - 1)
[2020-03-26 07:06] LABS: BACTERIA,URINE MANY /HPF; EPITHELIAL CELLS,URINE FEW /LPF
[2020-03-26 07:08] LABS: ALBUMIN 2.4 g/dL (3.5-5.0); ALBUMIN/GLOBULIN RATIO 0.7 (0.8-2.0); CREATININE, SERUM 0.91 mg/dL (0.57-1.11)
--- NOTE | 2020-03-26 08:23 | NUR ---
AM CXR RESULTS CALLED TO DR Jean-Paul MORENO, HE WILL SEE PATIENT ON ROUNDS
[2020-03-26] MEDS: LIDOCAINE 4% PATCH TP SCH (09:00)
[2020-03-26] MEDS ORDERED: DEXAMETHASONE SOD PHOS 10 MG/1 ML VIAL ONE (10:03)
[2020-03-26] MEDS: DOCUSATE SODIUM 100 MG CAP PO SCH (10:09)
[2020-03-26] MEDS: DEXAMETHASONE PHOS 4MG/ML 5ML MULTIDOSE VIAL IV SCH (10:09)
[2020-03-26] MEDS: ASCORBIC ACID 500 MG TAB PO SCH ×2 (10:09→17:30)
[2020-03-26] MEDS: PANTOPRAZOLE 40 MG 10ML VIAL IV SCH (10:09)
[2020-03-26] MEDS: METOPROLOL SUCCINATE 50 MG TAB XL PO SCH (10:10)
[2020-03-26 10:22] LABS: LYMPHOCYTES % (MANUAL) 2 % (19-48); MONOCYTES % (MANUAL) 2 % (3.4-9.0); NEUTROPHILS % (MANUAL) 96 % (40-74); RBC MORPHOLOGY COMMENT ABNORMAL
--- NOTE | 2020-03-26 10:22 | Progress Note ---
DATE: SUBJECTIVE: An 89-year-old female, who came in with COVID pneumonia. The patient came in shortness of breath. Has history of sick sinus syndrome, coronary artery disease, atherosclerosis, recent fall with pubic rami fracture. The patient was intubated yesterday and had a pneumothorax. The patient is status post chest tube placement. Cardiology consult was done for atrial fibrillation. The patient is intubated and currently in the [facility]. PHYSICAL EXAMINATION: VITAL SIGNS: Temperature is 97.4, pulse of 64, and pulse oximeter is 99% on mechanical ventilator. GENERAL: The patient is intubated, chronically sick-appearing. HEENT: The patient has subcutaneous emphysema, starting all the way from the neck extending onto the facial area. HEART: Regular, bradycardic at this time. LUNGS: Decreased air entry, rhonchi throughout. ABDOMEN: Soft, nontender, nondistended. EXTREMITIES: No clubbing, no cyanosis. Edema present. LABORATORY VALUES: White count is 9.65, hemoglobin of 11.9, platelet count is 261, neutrophil count 95.6. Chemistry; sodium of 146, creatinine 0.91, yesterday's BUN was 32. ALT and AST are elevated. Coags; INR is 3.70. IMAGING STUDIES: Chest x-ray done post chest tube placement. Persistent left pneumothorax post placement. Large subcutaneous emphysema left chest wall and multifocal pulmonary airspace consistent with viral pneumonia. ASSESSMENT AND PLAN: Ms. Pascale Flores: 1. COVID-19 pneumonia. The patient is intubated with large pleural effusion with pneumothorax, status post chest tube placement. We can stop the Coumadin right now and prognosis is very guarded on this patient. 2. Supportive care as ordered. 3. Pulmonary, ID, and Cardiology on case. Medication list verified. Currently, the patient is on Rocephin and dexamethasone. Metoprolol 50 q.6 hours and azithromycin. MD KULDIP Morales/GEORGE /[id number]
[2020-03-26 10:23] LABS: HYPOCHROMASIA MODERATE; PLATELET ESTIMATE ADEQUATE; PLATELET MORPHOLOGY COMMENT NORMAL
--- NOTE | 2020-03-26 12:11 | Diagnostic Imaging Report ---
Examination: Single AP view of the chest. COMPARISON: Portable chest performed same date INDICATION: Central line placement IMPRESSION: 1. Lines and Tubes: Interval placement of right-sided PICC line, which has its distal tip projecting in the proximal to mid SVC. Other supporting tubes are unchanged. Left upper chest cardiac device is unchanged. 2. No interval change in diffuse pulmonary airspace disease, right greater than left. Signed by: Dr. Pawel Collins M.D. on 03/26/2020 12:07 PM
[2020-03-26] MEDS ORDERED: PHYTONADIONE 10 MG/ML AMP SC ONE (13:30)
[2020-03-26 14:21] LABS: ABG HCO3 26 mmol/L (22-26); ABG PCO2 41 mmHg (35-45); ABG PH 7.41 (7.35-7.45); ABG PO2 57 mmHg (80-105)
--- NOTE | 2020-03-26 14:33 | NUR ---
ABG RESULTS CALLED TO DR WHYTE, STATES TO KEEP VENT SETTINGS THE SAME. GOAL TO KEEP O2 SAT AT 90% OR ABOVE
[2020-03-26] MEDS: AZITHROMYCIN 500MG/NS 250 ML 250 ML IV SCH (17:30)
[2020-03-26] MEDS: CEFTRIAXONE SOD 1 GM/NS 50 ML 50 ML IV SCH (17:30)
[2020-03-26] MEDS: MELATONIN 3 MG TAB PO SCH (21:45)
[2020-03-26] MEDS: FLUOXETINE HCL 10 MG CAP PO SCH (21:45)
[2020-03-27] VITALS (24 sets, daily range): BP systolic 97–119; BP diastolic 45–59
[2020-03-27] MEDS: MIDAZOLAM HCL 5MG/ML 10ML VIAL 100 ML IV PRN (02:03)
--- NOTE | 2020-03-27 05:26 | Diagnostic Imaging Report ---
EXAMINATION: CHEST SINGLE (PORTABLE) INDICATION: ^COVID COMPARISON: 03/26/2020 FINDINGS: AP view TUBES and LINES: Unchanged endotracheal tube, nasogastric tube, and left chest tube. Unchanged right upper extremity PICC. Left cardiac device. LUNGS: Unchanged diffuse pulmonary airspace disease. PLEURA: Unchanged left pneumothorax with air gap of 2.6 cm. HEART AND MEDIASTINUM: The cardiomediastinal silhouette is unchanged. BONES AND SOFT TISSUES: Mild interval decrease in subcutaneous emphysema of the left neck and left chest wall. UPPER ABDOMEN: No free air under the diaphragm. IMPRESSION: 1. Unchanged left pneumothorax. Slight interval decrease in left-sided subcutaneous emphysema. 2. Unchanged diffuse pulmonary airspace disease consistent with viral pneumonia. Signed by: Jaime Manzo MD on 03/27/2020 5:23 AM
[2020-03-27] MEDS: METOPROLOL TARTRATE 50 MG TAB PO SCH ×4 (06:00→18:00)
[2020-03-27 06:07] LABS: BASOPHILS % 0.1 % (0.0-1.0); HEMATOCRIT 39.2 % (34.2-44.1); HEMOGLOBIN 11.3 g/dL (12.0-16.0); LYMPHOCYTES # (AUTO) 0.1 (1.0-3.2); LYMPHOCYTES % 0.8 % (18.0-39.1); MEAN CORPUSCULAR HEMOGLOBIN 25.9 pg (28-32); MEAN CORPUSCULAR HGB CONC 28.8 g/dL (31-35); MEAN CORPUSCULAR VOLUME 89.7 fL (81-99); MONOCYTES # (AUTO) 0.2 (0.2-0.8); MONOCYTES % 1.6 % (4.4-11.3); NEUTROPHILS # (AUTO) 10.5 (2.1-6.9); NEUTROPHILS % 97.1 % (38.7-80.0); PLATELET COUNT 201 x10e3/uL (140-360); RED BLOOD COUNT 4.37 x10e6/uL (3.6-5.1); RED CELL DISTRIBUTION WIDTH 17.9 % (11.7-14.4)
[2020-03-27 06:28] LABS: ALANINE AMINOTRANSFERASE 73 IU/L (0-55); ALBUMIN 1.9 g/dL (3.5-5.0); ALBUMIN/GLOBULIN RATIO 0.6 (0.8-2.0); ALKALINE PHOSPHATASE 209 IU/L (40-150); ANION GAP 8.6 mmol/L (8-16); BLOOD UREA NITROGEN 45 mg/dL (7-26); BUN/CREATININE RATIO 74 (6-25); CALCIUM 7.8 mg/dL (8.4-10.2); CARBON DIOXIDE 30 mmol/L (22-29); CHLORIDE 112 mmol/L (98-107); CREATININE, SERUM 0.61 mg/dL (0.57-1.11); EST GLOMERULAR FILTRATION RATE > 60 ML/MIN (60-); GLUCOSE 158 mg/dL (74-118); POTASSIUM 3.6 mmol/L (3.5-5.1); SODIUM 147 mmol/L (136-145)
[2020-03-27 08:55] LABS: LYMPHOCYTES % (MANUAL) 2 % (19-48); MONOCYTES % (MANUAL) 1 % (3.4-9.0); NEUTROPHILS % (MANUAL) 97 % (40-74)
[2020-03-27 08:56] LABS: ANISOCYTOSIS SLIGHT; PLATELET ESTIMATE ADEQUATE; PLATELET MORPHOLOGY COMMENT NORMAL; POIKILOCYTOSIS SLIGHT; RBC MORPHOLOGY COMMENT NORMAL
[2020-03-27] MEDS: LIDOCAINE 4% PATCH TP SCH (10:38)
[2020-03-27] MEDS: ASCORBIC ACID 500 MG TAB PO SCH ×2 (10:38→16:39)
[2020-03-27] MEDS: PANTOPRAZOLE 40 MG 10ML VIAL IV SCH (10:39)
[2020-03-27] MEDS: DOCUSATE SODIUM 100 MG CAP PO SCH (10:39)
[2020-03-27] MEDS: DEXAMETHASONE PHOS 4MG/ML 5ML MULTIDOSE VIAL IV SCH (13:46)
[2020-03-27] MEDS: AZITHROMYCIN 500MG/NS 250 ML 250 ML IV SCH (16:37)
[2020-03-27] MEDS: CEFTRIAXONE SOD 1 GM/NS 50 ML 50 ML IV SCH (16:37)
--- NOTE | 2020-03-27 19:52 | Progress Note ---
DATE: SUBJECTIVE: An 89-year-old female, who came in with COVID-19 pneumonia, transferred to ICU, intubated and also chest tube in place. The patient has subcutaneous emphysema currently, otherwise stable as per nursing. OBJECTIVE: VITAL SIGNS: Temperature is 97.5, pulse of 66, respirations of 16, blood pressure is 109/55, and pulse oximetry of 96%. HEENT: Normocephalic. Tube in place. CVS: S1 and S2 distant, irregular. ABDOMEN: Soft and nontender. EXTREMITIES: No clubbing. Positive edema. LABORATORY VALUES: Today's white count is 10.55, hemoglobin of 11.3, and hematocrit of 39.2. Chemistries; sodium of 147, BUN of 45, and creatinine 0.61. ALT and AST elevated. ASSESSMENT: COVID-19, present on admission with pneumonia. The patient also has large pleural effusion, status post chest tube places. Continue with dexamethasone, Rocephin, and azithromycin. Chest tube in place. Prognosis is very guarded. Continue supportive care. We will monitor her lytes and her CBC on a daily basis. Further recommendation per clinical course. MD KULDIP Morales/GEORGE /[id number]
[2020-03-27] MEDS: FLUOXETINE HCL 10 MG CAP PO SCH (21:15)
[2020-03-27] MEDS: MELATONIN 3 MG TAB PO SCH (21:15)
[2020-03-28] VITALS (24 sets, daily range): BP systolic 96–135; BP diastolic 41–79
[2020-03-28] MEDS: MIDAZOLAM HCL 5MG/ML 10ML VIAL 100 ML IV PRN ×2 (03:00→17:48)
[2020-03-28] MEDS: METOPROLOL TARTRATE 50 MG TAB PO SCH ×4 (06:00→17:48)
[2020-03-28 06:41] LABS: INR 1.14; PROTHROMBIN TIME 15.3 seconds (11.9-14.5)
[2020-03-28 06:48] LABS: BASOPHILS % 0.1 % (0.0-1.0); HEMATOCRIT 40.2 % (34.2-44.1); HEMOGLOBIN 11.5 g/dL (12.0-16.0); LYMPHOCYTES # (AUTO) 0.1 (1.0-3.2); LYMPHOCYTES % 0.8 % (18.0-39.1); MEAN CORPUSCULAR HEMOGLOBIN 25.7 pg (28-32); MEAN CORPUSCULAR HGB CONC 28.6 g/dL (31-35); MEAN CORPUSCULAR VOLUME 89.7 fL (81-99); MONOCYTES # (AUTO) 0.2 (0.2-0.8); MONOCYTES % 2.2 % (4.4-11.3); NEUTROPHILS % 96.3 % (38.7-80.0); PLATELET COUNT 134 x10e3/uL (140-360); RED BLOOD COUNT 4.48 x10e6/uL (3.6-5.1); RED CELL DISTRIBUTION WIDTH 18.2 % (11.7-14.4)
[2020-03-28 06:58] LABS: ANION GAP 9.9 mmol/L (8-16); BLOOD UREA NITROGEN 35 mg/dL (7-26); BUN/CREATININE RATIO 58 (6-25); CALCIUM 7.8 mg/dL (8.4-10.2); CARBON DIOXIDE 30 mmol/L (22-29); CHLORIDE 114 mmol/L (98-107); EST GLOMERULAR FILTRATION RATE > 60 ML/MIN (60-); GLUCOSE 242 mg/dL (74-118); POTASSIUM 3.9 mmol/L (3.5-5.1); SODIUM 150 mmol/L (136-145)
--- NOTE | 2020-03-28 08:15 | Progress Note ---
DATE: SUBJECTIVE: The patient is an 89-year-old female, who came in with COVID pneumonia. Currently, the patient is intubated. Medications include sedation, Rocephin, on metoprolol for rate control and the patient's warfarin is on hold at this time. She is also on dexamethasone 6 mg daily. OBJECTIVE: VITAL SIGNS: T-max is 100, which is at 0017 hours, respirations of 30, pulse of 72, the patient is on mechanical ventilator. HEENT: Normocephalic, atraumatic. The patient is intubated. CVS: S1 and S2, irregular. ABDOMEN: Soft and nontender. EXTREMITIES: No clubbing, no cyanosis, no edema. LABORATORY VALUES: White count is 10.78, hemoglobin of 11.3, hematocrit of 39.2. Chemistries; sodium of 147, BUN 45 and creatinine 0.62. Coags are pending today. Serology of course coronavirus detected. ASSESSMENT AND PLAN: Ms. Flores with COVID pneumonia and pleural effusion with chest tube placement, intubated. The patient is on dexamethasone and Rocephin. We will continue monitoring her white count. The prognosis is very guarded. We will discuss the case with the family today and there are mixed reports of her, not wanting to be intubated. We will talk to the family and decide on further plan. Further recommendation per clinical course. We will continue to monitor her until that. MD KULDIP Morales/POONAML /[id number]
--- NOTE | 2020-03-28 08:23 | Diagnostic Imaging Report ---
EXAMINATION: CHEST SINGLE (PORTABLE) INDICATION: Pneumothorax, pneumonia COMPARISON: Multiple prior chest radiograph most recently 03/27/2020 FINDINGS: LINES/TUBES:Support lines and tubes unchanged. LUNGS:Lung aeration has improved from the prior radiograph. Persistent interstitial opacities of both lower lungs. PLEURA:Interval decrease in size of left pneumothorax now measuring up to 7 mm maximal thickness. MEDIASTINUM:The cardiomediastinal silhouette appears unchanged in size and shape. BONES/SOFT TISSUES:Decreasing left chest wall subcutaneous emphysema. ABDOMEN:No free air under the diaphragm. IMPRESSION: Interval improvement in left pneumothorax, now measuring up to 7 mm maximum thickness. Interval improvement in lung aeration and decrease in bilateral interstitial and airspace opacities. Signed by: Max Cain MD on 03/28/2020 8:20 AM
[2020-03-28 09:25] LABS: ANISOCYTOSIS MODERATE; OVALOCYTES MODERATE; RBC MORPHOLOGY COMMENT ABNORMAL; SCHISTOCYTES RARE
[2020-03-28 09:26] LABS: ELLIPTOCYTE, RBC SLIGHT; PLATELET ESTIMATE SLIGHTLY DECREASED
[2020-03-28 09:27] LABS: BURR CELLS SLIGHT; HYPOCHROMASIA SLIGHT; PLATELET MORPHOLOGY COMMENT RARE EDTA CLUMPING; TEAR DROP CELLS FEW
[2020-03-28 09:32] LABS: LYMPHOCYTES % (MANUAL) 1 % (19-48); MONOCYTES % (MANUAL) 1 % (3.4-9.0); NEUTROPHILS % (MANUAL) 98 % (40-74)
[2020-03-28] MEDS: ASCORBIC ACID 500 MG TAB PO SCH ×2 (09:56→17:46)
[2020-03-28] MEDS: ZINC SULFATE 220 MG CAP PO SCH (09:56)
[2020-03-28] MEDS: PANTOPRAZOLE 40 MG 10ML VIAL IV SCH (09:56)
[2020-03-28] MEDS: LIDOCAINE 4% PATCH TP SCH (09:56)
[2020-03-28] MEDS: DOCUSATE SODIUM 100 MG CAP PO SCH (09:56)
[2020-03-28] MEDS: DEXAMETHASONE PHOS 4MG/ML 5ML MULTIDOSE VIAL IV SCH (09:56)
[2020-03-28] MEDS: DEXTROSE 5% 1,000 ML IV SCH (12:28)
[2020-03-28 13:55] LABS: ABG HCO3 30 mmol/L (22-26); ABG PCO2 37 mmHg (35-45); ABG PH 7.52 (7.35-7.45); ABG PO2 115 mmHg (80-105)
[2020-03-28] MEDS: CEFTRIAXONE SOD 1 GM/NS 50 ML 50 ML IV SCH (15:30)
[2020-03-28] MEDS: AZITHROMYCIN 500MG/NS 250 ML 250 ML IV SCH (17:46)
[2020-03-28] MEDS ORDERED: ENOXAPARIN SOD INJ 40 MG/0.4 ML SYR SC SCH (21:00)
--- NOTE | 2020-03-28 21:06 | NUR ---
Notified Dr. Mariluz Gonsalez of ABG. No new orders. Communicated with RT.
[2020-03-28] MEDS: MELATONIN 3 MG TAB PO SCH (21:09)
[2020-03-28] MEDS: FLUOXETINE HCL 10 MG CAP PO SCH (21:09)
[2020-03-28] MEDS: ENOXAPARIN SOD INJ 60 MG/0.6 ML SYR SC SCH (21:09)
[2020-03-29] VITALS (18 sets, daily range): BP systolic 91–109; BP diastolic 42–58
[2020-03-29] MEDS: TRAMADOL HCL 50 MG TAB PO PRN ×2 (01:37→02:42)
[2020-03-29] MEDS: MIDAZOLAM HCL 5MG/ML 10ML VIAL 100 ML IV PRN ×4 (01:44→23:57)
[2020-03-29] MEDS: METOPROLOL TARTRATE 50 MG TAB PO SCH ×3 (06:00→11:52)
[2020-03-29 06:26] LABS: BASOPHILS % 0.1 % (0.0-1.0); HEMOGLOBIN 10.5 g/dL (12.0-16.0); LYMPHOCYTES # (AUTO) 0.1 (1.0-3.2); LYMPHOCYTES % 0.9 % (18.0-39.1); MEAN CORPUSCULAR HEMOGLOBIN 25.7 pg (28-32); MEAN CORPUSCULAR HGB CONC 28.4 g/dL (31-35); MEAN CORPUSCULAR VOLUME 90.7 fL (81-99); MONOCYTES # (AUTO) 0.3 (0.2-0.8); MONOCYTES % 2.4 % (4.4-11.3); NEUTROPHILS # (AUTO) 11.4 (2.1-6.9); NEUTROPHILS % 95.9 % (38.7-80.0); PLATELET COUNT 74 x10e3/uL (140-360); RED BLOOD COUNT 4.08 x10e6/uL (3.6-5.1); RED CELL DISTRIBUTION WIDTH 18.6 % (11.7-14.4)
[2020-03-29 06:29] LABS: INR 1.12; PROTHROMBIN TIME 15.1 seconds (11.9-14.5)
[2020-03-29 06:44] LABS: ANION GAP 7.6 mmol/L (8-16); BLOOD UREA NITROGEN 29 mg/dL (7-26); BUN/CREATININE RATIO 57 (6-25); CALCIUM 7.3 mg/dL (8.4-10.2); CARBON DIOXIDE 31 mmol/L (22-29); CHLORIDE 110 mmol/L (98-107); CREATININE, SERUM 0.51 mg/dL (0.57-1.11); EST GLOMERULAR FILTRATION RATE > 60 ML/MIN (60-); GLUCOSE 289 mg/dL (74-118); POTASSIUM 3.6 mmol/L (3.5-5.1); SODIUM 145 mmol/L (136-145)
--- NOTE | 2020-03-29 07:12 | NUR ---
Infectious disease progress note 03/29/2020 The patient is an 89-year-old female, who came in with COVID pneumonia. Currently, the patient is intubated. the patient remains in intensive care unit Laboratory review chart reviewed Discussed with the medical team Medications List all reviewed include sedation, Rocephin, on metoprolol for rate control and the patient's warfarin is on hold at this time. She is also on dexamethasone 6 mg daily. OBJECTIVE: VITAL SIGNS: T-max is 100, which is at 0017 hours, respirations of 30, pulse of 72, the patient is on mechanical ventilator. HEENT: Normocephalic, atraumatic. The patient is intubated. CVS: S1 and S2, irregular. ABDOMEN: Soft and nontender. EXTREMITIES: No clubbing, no cyanosis, no edema. LABORATORY VALUES: White count is 10.78, hemoglobin of 11.3, hematocrit of 39.2. Chemistries; sodium of 147, BUN 45 and creatinine 0.62. Coags are pending today. covid 19 [id number]
[2020-03-29] MEDS: DEXTROSE 5% 1,000 ML IV SCH (08:34)
[2020-03-29] MEDS: DOCUSATE SODIUM 100 MG CAP PO SCH (08:38)
[2020-03-29] MEDS: ASCORBIC ACID 500 MG TAB PO SCH (08:38)
[2020-03-29] MEDS: PANTOPRAZOLE 40 MG 10ML VIAL IV SCH (08:38)
[2020-03-29] MEDS: ENOXAPARIN SOD INJ 60 MG/0.6 ML SYR SC SCH (08:38)
[2020-03-29] MEDS: LIDOCAINE 4% PATCH TP SCH (08:38)
--- NOTE | 2020-03-29 08:42 | NUR ---
Dr Yu to bedside, orders rec'd.
--- NOTE | 2020-03-29 08:43 | Diagnostic Imaging Report ---
EXAMINATION: CHEST SINGLE (PORTABLE) INDICATION: Pneumothorax COMPARISON: Chest radiograph 03/28/2020 FINDINGS: LINES/TUBES:Endotracheal tube terminates 2.8 cm above the lupillo. Enteric tube projects pole of the diaphragm with tip not visualized. Right PICC line unchanged. Left basilar chest tube unchanged. LUNGS:Lung volumes are decreased. Interval increase in bilateral multifocal airspace opacities. PLEURA:No pleural effusion or pneumothorax. MEDIASTINUM:The cardiomediastinal silhouette appears unchanged in size and shape. BONES/SOFT TISSUES:No acute osseous injury. ABDOMEN:No free air under the diaphragm. IMPRESSION: Interval increase in bilateral multifocal airspace opacities consistent with known viral pneumonia. No pneumothorax. Signed by: Max Cain MD on 03/29/2020 8:39 AM
[2020-03-29] MEDS ORDERED: DEXTROSE 50% SYRINGE 50 ML IV PRN (08:45)
[2020-03-29] MEDS: ZINC SULFATE 220 MG CAP PO SCH (09:00)
[2020-03-29] MEDS: DEXAMETHASONE PHOS 4MG/ML 5ML MULTIDOSE VIAL IV SCH (09:20)
[2020-03-29 09:56] LABS: LYMPHOCYTES % (MANUAL) 1 % (19-48); MONOCYTES % (MANUAL) 1 % (3.4-9.0); NEUTROPHILS % (MANUAL) 98 % (40-74); NUCLEATED RED BLOOD CELLS 1
[2020-03-29 09:57] LABS: BURR CELLS SLIGHT; HYPOCHROMASIA SLIGHT; OVALOCYTES MODERATE
[2020-03-29 09:58] LABS: ANISOCYTOSIS MODERATE; ELLIPTOCYTE, RBC SLIGHT; PLATELET ESTIMATE MODERATELY DECREASED; RBC MORPHOLOGY COMMENT ABNORMAL
[2020-03-29 09:59] LABS: PLATELET MORPHOLOGY COMMENT RARE EDTA CLUMPING
[2020-03-29] MEDS ORDERED: INSULIN LISPRO 100 UNIT/1 ML 3ML VIAL SQ SCH (11:30)
--- NOTE | 2020-03-29 14:19 | NUR ---
Nutrition Intervention Note RD Recommendation(s) for Physician: - Continue to advance current TF to goal rate of 50 ml/hr (1200 kcal 105 gm protein). - Water flushes/fluid management per MD. Plan of Care: RD following, TF rec's, monitoring for tolerance and adequacy Nutrition reason for involvement: follow up RD Assessment 03/31: Follow up. Pt remains intubated and sedated with Versed. Pt with chest tube in place 2/2 pleural effusion. Total of 705 ml of TF administered per I/O documentation yesterday, TF infusing at avg of 30 ml/hr. As feasible advance TF to goal rate of 50 ml/hr. Chart reviewed. Will continue to monitor. Initial encounter with patient. Pt being transferred to PACU at time of visit. Pt being orally intubated in PACU. Unable to obtain a nutrition Hx for this reason. Pt will likely require nutrition support with EN preferably. Principal Problems/Diagnoses: Pneumonia possibly due to COVID - 19 PMH: HTN, cardiac pacemaker, cholecystectomy GI: No BM recorded Skin: intact Labs: 03/29: Na 145, K 4.4, BUN 34, Cr 0.87, Gluc 126 Meds: humalog, zofran, decadron, vitamin C, protonix, colace, azythromycin, zinc sulfate IVF/Drips: Versed Ht: 64 in. Wt: 123.03lbs BMI: 21.1kg/m2 IBW: 120lbs Malnutrition Evaluation (03/25/2020) The patient does not meet criteria for a specified degree of malnutrition at this time. Will re-evaluate at follow-up as appropriate. Nutrition Prescription (Diet Order): TF: Vital HP at 50 ml/hr, infusing at 30 ml/hr (720 kcal and 63 gm protein) Estimated Nutritional Needs: 8309-0116 calories/day (20-25 kcal/kg/BW) 84-112 g protein/day (1.5-2 g pro/kg/BW) Diet Adequacy: Not meeting calorie needs, Not meeting protein needs Diet Education Needs Assessment: Diet education not indicated, patient on temporary/transition diet. Nutrition Care Level: Mod Nutrition Diagnosis: Inadequate energy and protein intake related to intubation and current medical conditions as evidenced inadequate EN. Goal: Patient will meet 75-100% of estimated needs by follow up Progress: progressing Interventions: EN- Composition, Rate, Route, recommend modifications Monitoring/Evaluation: Total energy intake, Total protein intake, Formula/Solution, Prescription medication, Weight change Signed: Gay Maguire RD, LD, CNSC
--- NOTE | 2020-03-29 15:26 | NUR ---
Received a phone call from Dr. Callejas. He talked to patient's family who would like to honor patient's wishes for DNR/DNI. A decision was made to terminally extubate the patient. Dr. Yu was contacted to update. Versed drip will be titrated up to keep the patient comfortable. Tube feeds and other drips stopped.
--- NOTE | 2020-03-29 15:41 | NUR ---
Jairo Flores (POA) [phone] They are in agreement to proceed with terminal extubation. Orders placed under Dr. Callejas's name.
[2020-03-29] MEDS: MORPHINE SULFATE INJ 4 MG/ML INJ 1ML IV PRN ×3 (16:48→21:29)
[2020-03-29] MEDS ORDERED: MORPHINE SULFATE 2 MG/ML SYR 1ML ONE (16:50)
--- NOTE | 2020-03-29 17:11 | Progress Note ---
DATE: SUBJECTIVE: Ms. Flores remains in intensive care unit, weak but stable. PHYSICAL EXAMINATION: GENERAL: She is currently alert. VITAL SIGNS: Stable, afebrile. HEENT: She is not icteric. NECK: Supple. CHEST: Clear. HEART: S1, S2. ABDOMEN: Soft. IMPRESSION: 1. COVID-19. 2. Debility. 3. Remains on a ventilator intubated, sedated. 4. We will follow. MD KAMILAH Mcdonald/POONAML /[id number]
[2020-03-29] MEDS: LORAZEPAM INJ 2 MG/ML VIAL IV PRN ×2 (17:37→21:28)
--- NOTE | 2020-03-29 18:43 | Progress Note ---
DATE: SUBJECTIVE: This is an 89-year-old female, who came in with COVID pneumonia. I did have a long discussion with her family, two daughters, Daylin and Scarlet and decision was made to extubate the patient. The patient was extubated today, currently on Versed and also escalating doses of morphine. The patient is currently disintegrating. ASSESSMENT AND PLAN: The patient with coronavirus disease-19 pneumonia, extubated, continue monitoring. Further recommendation per clinical course and decision has been made to follow up with her DNR in her medical record and we will continue care. MD KULDIP Morales/MODL /[id number]
[2020-03-30] VITALS (9 sets, daily range): BP systolic 92–109; BP diastolic 36–58
[2020-03-30] MEDS: LORAZEPAM INJ 2 MG/ML VIAL IV PRN ×2 (07:48→09:37)
[2020-03-30] MEDS: MORPHINE SULFATE INJ 4 MG/ML INJ 1ML IV PRN ×2 (07:48→09:24)
--- NOTE | 2020-03-30 08:19 | Diagnostic Imaging Report ---
Examination: Single AP view of the chest. COMPARISON: 03/29/2020 INDICATION: Pneumonia DISCUSSION: Interval extubation and removal of enteric tube. Right upper extremity PICC and left basilar chest tube are unchanged in appearance. Interval improvement in aeration of the lungs with decrease in confluent bilateral airspace opacities relative to 03/29/2020. No pneumothorax or sizable pleural effusion. Cardiomediastinal contour is stable. Unchanged calcific density projecting over the right side of the mediastinum. No acute osseous abnormality. Healed fracture deformity of the proximal shaft of the right humerus. IMPRESSION: Interval extubation and removal of enteric tube with stable position of remaining support lines and tubes. Interval improvement in multifocal airspace disease relative to 03/29/2020. Signed by: Dr. Harpal Domingo M.D. on 03/30/2020 8:15 AM
--- OUTSIDE RECORDS SUMMARY | 2020-04-21 04:45 | XMS REPORT | Clinical Summary ---
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 Friday- ay and Friday and - Does not take Friday. Active Problems Problem Noted Date Intractable pain 03/19/2019 Social History Date Tobacco Use Types Packs/Day Years Used Never Smoker Smokeless Tobacco: Never Used Drinks/Week oz/Week Comments Alcohol Use Never Alcohol Habits Answer Date Recorded How often do you have a drink containing alcohol? Never 03/19/2019 How many drinks containing alcohol do you have on No t asked a typical day when you are drinking? How often do you have six or more drinks on one Not asked occasion? Sex Assigned at Date Recorded Not on file Industry Job Start Date Occupation Not on file Not on file Not on file Travel End Travel History Travel Start No recent travel history available. Last Filed Vital Signs Not on file Plan of Treatment Health Maintenance Due Date Last Done Comments SHINGLES VACCINES (#1) 1982 65+ PNEUMOCOCCAL VACCINE 1997 (1 of 2 - PCV13) INFLUENZA VACCINE 04/22/2020 Results Not on fileafter 03/23/2019 Insurance Type Payer Benefit Subscriber ID Effective Phone Address Plan / Dates Group Medicare MEDICARE MEDICARE xxxxxxxxxxx 1997- [place], PART A AND Present [place] AARP AARP xxxxxxxxx [id number] SUPPLEMENT resent Advance Directives For more information, please contact: [phone] Patient Rn Placement Explanation Type Date Recorded Advance Directives, 03/18/2019 11:37 PM Living Will and Medical Power of [employer]
--- OUTSIDE RECORDS SUMMARY | 2020-04-21 04:46 | XMS REPORT | Continuity of Care Document ---
Author Author [facility] t Organization [facility] Address [address] [place] [address] Phone Unavailable Care Team Providers Care Operations Business Partner Name Role Phone MD Nasra CARUSO MD PCP Nasra CARUSO Attphys Unavailable Nasra CARUSO Admphys Unavailable Payers Payer Name Policy Type Policy Number Effective Date Expiration Date Nasra grmialdo AAR [id number] 2019 00:00:00 [facility] Medicare A & B [id number] 1997 00:00:00 [facility] Cdc Review Covid19 [id number] [facility] Problems Condition Name Condition Details Condition Category Status Onset Date Resolution Date Last Treatment Date Treating Clinician Comments Source Intractable pain Intractable pain Disease Active 2019-03-19 00:00:00 Mark Scott Dehydration Dehydration Problem Active 2016-01-29 00:00:00 [facility] Diarrhea Diarrhea Problem Active 2016-01-29 00:00:00 [facility] Occult blood in stools Guaiac positive stools Problem Active 2016-01-29 00:00:00 [facility] Hypokalemia Hypokalemia Problem Active 2016-01-29 00:00:00 [facility] New onset atrial fibrillation New onset atrial fibrillation Problem Active 2016-01-29 00:00:00 [facility] Atrial fibrillation with rapid ventricular response At [facility] fibrillation with RVR Problem Active [facility] Dizziness Dizziness Problem Active [facility] Urinary tract infection UTI (urinary tract infection) Problem Active [facility] Warfarin-induced coagulopathy Warfarin-induced coagulopathy Problem Active [facility] Fracture of head of humerus Problem Active [facility] Retention of urine Problem Active [facility] Fracture of pubic ramus Problem Active [facility] Weakness Problem Active [facility] Acute respiratory disease due to severe acute respiratory syndrome coronavirus 2 (SARS-CoV-2) Problem Active [facility] Pneumonia Problem Active [facility] Allergies, Adverse Reactions, Alerts Allergy Name Allergy Type Status Severity Reaction(s) Onset Date Inacti ve Date Treating Clinician Comments Source Codeine Propensity to adverse reactions to drug Active 2019-03-18 00:00:00 Mark Scott Iodine Propensity to adverse reactions to drug Active 2019-03-18 00:00:00 IV IODINE ONLY NOT ALLERGIC TO TOPICAL [facility] [place] Iodinated Contrast- Oral and IV Dye DA Active U 3 00:00:00 [facility] codeine DA Active U 2016-11-22 00:00:00 [facility] Sulfa (Sulfonamide Antibiotics) Allergy to substance Active RASH 2016-11-15 00:00:00 [facility] iodine Allergy to substance Active Severe ANAPHYLACTIC 2016-01-29 00: 00:00 [facility] Codeine Allergy to substance Active Moderate TACHYCARDIA 2016-01-29 00: 00:00 [facility] Social History Social Habit Start Date Stop Date Quantity Comments Source History SDOH Alcohol Std Drinks Mark Scott History SDOH Alcohol Binge Mark Scott Sex Assigned At [facility] Alcohol intake 2019-03-19 00:00:00 2019-03-19 00:00:00 Lifetime non-drinker (finding) Mark Luceroist History SDOH Alcohol Frequency 2019-03-19 00:00:00 2019-03-19 00:00:0 0 1 Mark Scott Smoking Status Start Date Stop Date Source Never smoker Mark jaquez Medications Ordered Medication Name Filled Medication Name Start Date Stop Da te Current Medication? Ordering Clinician Indication Dosage Frequency Signature (SIG) Comments Components Source warfarin (COUMADIN) 2.5 MG tablet 2019-03-20 15:41:57 Yes 2.5mg Take 2.5 mg by mouth See Admin Instructions. Friday- and Friday and - Does not take Friday. Mark Scott metoprolol succinate XL (TOPROL-XL) 50 mg 24 hr tablet 2018-12-28 00:00:00 Yes TK 1 T PO QD Mark mims Cephalexin Monohydrate (Keflex) 500 Mg CAPSULE Cephale miguel angel Monohydrate (Keflex) 500 Mg CAPSULE 2016-11-16 16:06:00 2019-09-28 00:00:00 No 5 00 Every 12 Hours [facility] Warfarin Sodium (Coumadin) 2.5 Mg TABLET Warfarin Sodi um (Coumadin) 2.5 Mg TABLET 2016-11-16 16:06:00 2019-09-28 00:00:00 No 4 Tod ay At 5:00PM [facility] Famotidine (Pepcid) 20 Mg TABLET Famotidine (Pepcid) 20 Mg T ABLET 2016-02-04 09:36:00 2019-09-28 00:00:00 No 20 Twice A Day [facility] Warfarin Sodium (Coumadin) 2.5 Mg TABLET Warfarin Sodi um (Coumadin) 2.5 Mg TABLET 2016-02-04 09:36:00 2016-11-16 00:00:00 No 2.5 Tod ay At 5:00PM [facility] Loperamide Hcl (Imodium*) 2 Mg CAP Loperamide Hcl (Imodium*) 2 Mg CAP 2016-02-04 09:36:00 2016-11-15 00:00:00 No 2 As Needed as nee ded for [facility] Acetaminophen Acetaminophen Yes 650 Every 6 Hours as needed for Mild Pain (1-3) Or Fever>100.8 [facility] Acetaminophen Acetaminophen Yes 500 Daily [facility] Docusate Sodium (Colace) 100 Mg CAP Docusate Sodium (Colace) 100 Mg C AP Yes 100 Daily [facility] Fluoxetine Hcl Fluoxetine Hcl Yes 10 Bedtime [facility] Levalbuterol Hcl (Xopenex) 0.63 Mg/3 Ml VIAL.NEB Leval buterol Hcl (Xopenex) 0.63 Mg/3 Ml VIAL.NEB Yes 1 Every 8 Hours [facility] Lidocaine (Lidocaine Pain Relief) 1 Each ADH..PATCH Li docaine (Lidocaine Pain Relief) 1 Each ADH..PATCH Yes 1 Daily [facility] Melatonin Melatonin Yes 3 Bedtime [facility] Metoprolol Succinate Metoprolol Succinate Yes 50 Twice A Day [facility] Ondansetron Hcl (Zofran*) 4 Mg TABLET Ondansetron Hcl (Zofran*) 4 M g TABLET Yes 4 Every 4 Hours as needed for Nausea [facility] Tramadol Hcl (Ultram 50MG*) 50 Mg TAB Tramadol Hcl (Ultram 50MG*) 5 0 Mg TAB Yes 50 Every 8 Hours as needed for Moderate Jen n (4-6) [facility] Warfarin Sodium Warfarin Sodium Yes 2 Daily [facility] Metoprolol Succinate Metoprolol Succinate 2020-03-24 00:00:00 No 50 Twice A Day [facility] Warfarin Sodium Warfarin Sodium 2020-03-24 00:00:00 No 2.5 .six Days A Week [facility] Warfarin Sodium Warfarin Sodium 2020-03-24 00:00:00 No 2 Daily [facility] Aspirin (Asa) 81 Mg TAB Aspirin (Asa) 81 Mg TAB 2016-11-15 00:00 :00 No [facility] Atenolol Atenolol 2016-11-15 00:00:00 No [facility] Nebivolol Hcl (Bystolic) 10 Mg TABLET Nebivolol Hcl (Bystolic) 1 0 Mg TABLET 2016-02-04 00:00:00 No 10 Daily [facility] Vital Signs Vital Name Observation Time Observation Value Comments Source Body Temperature 2020-03-30 08:00:00 99.7 [degF] [facility] Weight 2020-03-25 03:20:00 123.03 [lb_av] [facility] BMI (Body Mass Index) 2020-03-25 03:20:00 21.1 kg/m2 [facility] Body Temperature 2020-03-11 11:14:00 97.4 [degF] [facility] BMI (Body Mass Index) 2020-03-09 00:31:00 20.3 kg/m2 [facility] Weight 2020-03-08 23:00:00 118.06 [lb_av] [facility] Procedures Procedure Date / Time Performed Performing Clinician [facility] Computed tomography of brain without radiopaque contrast 2020-02 00:00:00 [facility] Computed tomography of cervical spine without contrast 2020-02-21 7 00:00:[address] [facility] [address] of abdomen and pelvis without contrast 2020-03-08 00:00:00 [facility] Computed tomography of brain without radiopaque contrast 00:00:[address] [facility] Plan of Care Planned Activity Planned Date Details Comments Source Future Scheduled Test 2020-04-22 00:00:00 INFLUENZA VACCINE [code = INFLUENZA VACCINE] [facility] Future Scheduled Test 1997 00:00:00 65+ PNEUMOCOCCAL V ACCINE (1 of 2 - PCV13) [code = 65+ PNEUMOCOCCAL VACCINE (1 of 2 - PCV13)] [facility] Future Scheduled Test 1982 00:00:00 SHINGLES VACCINES (#1) [code = SHINGLES VACCINES (#1)] [facility] Encounters Start Date/Time End Date/Time Encounter Type Admission Type Attendi [facility] Care Department Encounter ID Source 2020-03-08 19:07:00 2020-03-11 15:08:00 Discharged Inpatient 1 FRAN CARUSO [facility] [id number] [facility] 2019-09-28 17:35:00 2019-10-02 12:29:00 Discharged Inpatient 1 FRAN CARUSO [facility] [id number] [facility] 2019-09-28 00:13:00 2019-09-28 00:13:00 Outpatient E [facility] Results Test Description Test Time Test Comments Results Result Comments Source CHEST SINGLE (PORTABLE) 2020-03-30 08:12:00 [facility] [address] [address] Patient Name: ASHOK LOCKE MR #: [id number] : 1930 Age/Sex: 89/F Req #: [id number] Adm Physician: FRAN CARUSO MD Ordered by: ANT YU MD Report #: [id number] Location: [facility] Room/Bed: [address] [address] Procedure: [id number] DX/CHEST SINGLE (PORTABLE) Exam Date: 03/30/20 Exam Time: 0630 REPORT STATUS: Signed Examination: Single AP view of the chest. COMPARISON: 03/29/2020 INDICATION: Pneumonia DISCUSSION: Interval extubation and removal of enteric tube. Right upper extremity PICC and left basilar chest tube are unchanged in appearance. I nterval improvement in aeration of the lungs with decrease in confluent bilateral airspace opacities relative to 03/29/2020. No pneumothorax or sizable pleural effusion. Cardiomediastinal contour is stable. Unchanged calcific density projecting over the right side of the mediastinum. No acute osseous abnormality. Healed fracture deformity of the proximal shaft of the right humerus. IMPRESSION: Interval extubation and removal of enteric tube with stable position of remaining support lines and tubes. Interval improvement in multifocal airspace disease relative to 03/29/2020. Signed by: Dr. Ant Domingo M.D. on 03/30/2020 8:15 AM Dictated By: ANT DOMINGO MD 4 Transcribed By: REGINALD on 03/30/20814 COPY TO: ANT YU MD CHEST SINGLE (PORTABLE) 2020-03-29 08:37:[address] [address] Patient Name: ASHOK LOCKE MR #: [id number] : 1930 Age/Sex: 89/F Req #: [id number] Adm Physician: FRAN CARUSO MD Ordered by: ANT YU MD Report #: [id number] Location: [facility] Room/Bed: [address] [address] Procedure: [id number] DX/CHEST SINGLE (PORTABLE) Exam Date: 03/29/20 Exam Time: 0435 REPORT STATUS: Signed EXAMINATION: CHEST SINGLE (PORTABLE) INDICATION: Pneumothorax COMPARISON: Chest radiograph 03/28/2020 FINDINGS: LINES/TUBES:Endotracheal tube terminates 2.8 cm above the lupillo. Enteric tube projects pole of the diaphragm with tip not visualized. Right PICC line unchanged. Left basilar chest tube unchanged. LUNGS:Lung volumes are decreased. Interval increase in bilateral multifocal airspace opacities. PLEURA:No pleural effusion or pneumothorax. MEDIASTINUM:The cardiomediastinal silhouette appears unchanged in size and shape. BONES/SOFT TISSUES:No acute osseous injury. ABDOMEN:No free air under the diaphragm. IMPRESSION: Interval increase in bilateral multifocal airspace opacities consistent with known viral pneumonia. No pneumothorax. Signed by: Gwen Huynh MD on 03/29/2020 8:39 AM Dictated By: GWEN HUYNH MD 8 Transcribed By: REGINALD on 03/29/20838 COPY TO: ANT YU MD Blood leukocytes automated count (number/volume) 2020-03-29 05:30:00 Test Item White Blood Count (test code = 6690-2) 11.85 4.8-10.8 [facility] count (number/volume)2020-03-29 05:30:00* Test Item Value Reference Range Interpretation Comments Red Blood Count (test code = 789-8) 4.08 3.6-5.1 [facility] hemoglobin measurement (moles/volume)2020-03-29 05:30:00* Test Item Value Reference Range Interpretation Comments Hemoglobin (test code = 00427-4) 10.5 12.0-16.0 [facility] blood hematocrit (volume fraction)2020-03-29 05:30:00* Test Item Value Reference Range Interpretation Comments Hematocrit (test code = 4544-3) 37.0 34.2-44.1 [facility] HospitalAutomated erythrocyte mean corpuscular [id number] 05:30:00* Test Item Value Reference Range Interpretation Comments Mean Corpuscular Volume (test code = 787-2) 90.7 81-99 [facility]Autom[facility] erythrocyte mean corpuscular hemoglobin (mass per erythrocyte)2020-03-29 05:30:00* Test Item Value Reference Range Interpretation Comments Mean Corpuscular Hemoglobin (test code = 785-6) 25.7 28-32 [facility]Autom[facility] erythrocyte mean corpuscular hemoglobin concentration measurement (mass/volume)2020-03-29 05:30:00* Test Item Value Reference Range Interpretation Comments Mean Corpuscular Hemoglobin Concent (test code = 786-4) 28.4 31-35 [facility] HospitalRDW AwpEw-[id number] 05:30:00* Test Item Value Reference Range Interpretation Comments Red Cell Distribution Width (test code = 15856-4) 18.6 11.7 -14.4 [facility]Autom[facility] blood platelet count (count/volume)2020-03-29 05:30:00* Test Item Value Reference Range Interpretation Comments Platelet Count (test code = 777-3) 74 140-360 [facility] HospitalAutom[facility] blood segmented neutrophil count as percentage of total nkpnebgkvx1883-49-65 05:30:00* Test Item Value Reference Range Interpretation Comments Neutrophils (%) (Auto) (test code = 57871-3) 95.9 38.7-80.0 [facility] HospitalAutomated blood lymphocyte count as percentage ot total irhuvrrgaj7629-60-99 05:30:00* Test Item Value Reference Range Interpretation Comments Lymphocytes (%) (Auto) (test code = 736-9) 0.9 18.0-39.1 [facility] HospitalAutomated blood monocyte count as percentage of total migsrskxpy3164-26-06 05:30:00* Test Item Value Reference Range Interpretation Comments Monocytes (%) (Auto) (test code = 5905-5) 2.4 4.4-11.3 [facility] HospitalAutomated blood eosinophil count as percentage of total bleplijprk3027-21-27 05:30:00* Test Item Value Reference Range Interpretation Comments Eosinophils (%) (Auto) (test code = 713-8) 0.0 0.0-6.0 [facility] HospitalAutomated blood basophil count as percentage of total crjhzgwymw4507-58-04 05:30:00* Test Item Value Reference Range Interpretation Comments Basophils (%) (Auto) (test code = 706-2) 0.1 0.0-1.0 [facility] HospitalFluoroscopic procedure less than one hour qdhusjik7416-15-04 05:30:00* Test Item Value Reference Range Interpretation Comments IM GRANULOCYTES % (test code = IM GRANULOCYTES %) 0.7 0.0- 1.0 [facility] HospitalAutom[facility] blood neutrophil count 2020-03-29 05:30:00* Test Item Value Reference Range Interpretation Comments Neutrophils # (Auto) (test code = 751-8) 11.4 2.1-6.9 [facility] lymphocytes count (number/volume) 2020-03-29 05:30:00* Test Item Value Reference Range Interpretation Comments Lymphocytes # (Auto) (test code = 29677-7) 0.1 1.0-3.2 [facility] monocytes automated count (number/volume)2020-03-29 05:30:00* Test Item Value Reference Range Interpretation Comments Monocytes # (Auto) (test code = 742-7) 0.3 0.2-0.8 [facility] HospitalAutomated blood eosinophil count 2020-03-29 05:30:00* Test Item Value Reference Range Interpretation Comments Eosinophils # (Auto) (test code = 711-2) 0.0 0.0-0.4 [facility] blood basophil count (count/volume)2020-03-29 05:30:00* Test Item Value Reference Range Interpretation Comments Basophils # (Auto) (test code = 704-7) 0.0 0.0-0.1 [facility] HospitalFluoroscopic procedure less than one hour uvwjdchu1150-47-70 05:30:00* Test Item Value Reference Range Interpretation Comments Absolute Immature Granulocyte (auto (maurice t code = Absolute Immature Granulocyte (auto) 0.08 0-0.1 [facility] HospitalFluoroscopic procedure less than one hour feqyqrko2117-59-87 05:30:00* Test Item Value Reference Range Interpretation Comments Differential Total Cells Counted (test code = Differdemond tial Total Cells Counted) 100 [facility] blood neutrophils/100 leukocytes 2020-03-29 05:30:00* Test Item Value Reference Range Interpretation Comments Neutrophils % (Manual) (test code = 10382-8) 98 40-74 [facility] blood lymphocytes/100 leukocytes 2020-03-29 05:30:00* Test Item Value Reference Range Interpretation Comments Lymphocytes % (Manual) (test code = 737-7) 1 19-48 [facility] blood monocytes/100 leukocytes 2020-03-29 05:30:00* Test Item Value Reference Range Interpretation Comments Monocytes % (Manual) (test code = 744-3) 1 3.4-9.0 [facility] nucleated erythrocytes count (number/volume)2020-03-29 05:30:00* Test Item Value Reference Range Interpretation Comments Nucleated Red Blood Cells (test code = 98146-0) 1 [facility] platelets count by estimate (number/volume)2020-03-29 05:30:00* Test Item Value Reference Range Interpretation Comments Platelet Estimate (test code = 35597-0) MODERATELY DECREASED [facility] HospitalPlatelet csqljzttjh3516-43-59 05:30:00* Test Item Value Reference Range Interpretation Comments Platelet Morphology Comment (test code = 84936-0) RARE EDTA CLUMPIN G [facility] hypochromia detection by light kqohhltomv5365-40-86 05:30:00* Test Item Value Reference Range Interpretation Comments Hypochromasia (test code = 728-6) SLIGHT [facility] anisocytosis detection by light enrwgiwpkj3151-94-52 05:30:00* Test Item Value Reference Range Interpretation Comments Anisocytosis (test code = 702-1) MODERATE [facility] ovalocytes detection by light gejtkohpla3173-82-70 05:30:00* Test Item Value Reference Range Interpretation Comments Ovalocytes (test code = 774-0) MODERATE [facility] aj cells detection by light bnesxotjwx4069-38-22 05:30:00* Test Item Value Reference Range Interpretation Comments Latta Cells (test code = 7790-9) SLIGHT [facility] HospitalElliptocyte jnrovawiv7638-84-50 05:30:00 * Test Item Value Reference Range Interpretation Comments Elliptocytes (test code = 91332-6) SLIGHT [facility] HospitalRBC rhmiuontni4610-16-42 05:30:00* Test Item Value Reference Range Interpretation Comments Red Cell Morphology Comment (test code = 6742-1) ABNORMAL [facility] HospitalProthrombin time (PT) in platelet poor plasma by coagulation sshra7370-31-31 05:30:00* Test Item Value Reference Range Interpretation Comments Prothrombin Time (test code = 5902-2) 15.1 11.9-14.5 [facility] HospitalINR in Platelet poor plasma by Coagulation zfoka9127-01-62 05:30:00* Test Item Value Reference Range Interpretation Comments Prothromb Time International Ratio (test code = 6301-6) 1.12 Oral Anticoagulant Therapy INR Values:1. Low Intensity Therapy 1.5 - 2.02 . Moderate Intensity Therapy 2.0 - 3.03. High Intensity Therapy(1) 2.5 - 3. 54. High Intensity Therapy(2) 3.0 - 4.05. Panic Value INR > 5.0 [facility] sodium measurement (moles/volume)2020-03-29 05:30:00* Test Item Value Reference Range Interpretation Comments Sodium Level (test code = 2951-2) 145 136-145 [facility]er[facility] or plasma potassium measurement (moles/volume)2020-03-29 05:30:00* Test Item Value Reference Range Interpretation Comments Potassium Level (test code = 2823-3) 3.6 3.5-5.1 [facility] or plasma chloride measurement (moles/volume)2020-03-29 05:30:00* Test Item Value Reference Range Interpretation Comments Chloride Level (test code = 2075-0) 110 98-107 [facility]er[facility] or plasma carbon dioxide, total measurement (moles/volume)2020-03-29 05:30:00* Test Item Value Reference Range Interpretation Comments Carbon Dioxide Level (test code = 2028-9) 31 22-29 [facility] Hospitaler[facility] or plasma anion zot6764-02-72 05:30:00* Test Item Value Reference Range Interpretation Comments Anion Gap (test code = 02222-9) 7.6 8-16 [facility]er[facility] or plasma urea nitrogen measurement (mass/volume)2020-03-29 05:30:00* Test Item Value Reference Range Interpretation Comments Blood Urea Nitrogen (test code = 3094-0) 29 7-26 [facility] Hospitaler[facility] or plasma creatinine measurement (mass/volume)2020-03-29 05:30:00* Test Item Value Reference Range Interpretation Comments Creatinine (test code = 2160-0) 0.51 0.57-1.11 [facility] Hospitaler[facility] or plasma urea nitrogen/creatinine mass bwute8373-54-42 05:30:00* Test Item Value Reference Range Interpretation Comments BUN/Creatinine Ratio (test code = 3097-3) 57 6-25 [facility] HospitalEstimated glomerular filtration rate (GFR) vxamkrsdfczlr0842-67-08 05:30:00* Test Item Value Reference Range Interpretation Comments Estimat Glomerular Filtration Rate (test code = 493880036) > 60 >60 Ranges were taken from the National Kidney Disease Education Program and the [facility] Kidney Foundation literature.Reference ranges:60 or greater: Vfqvcy75-78 ( for 3 consecutive months): Chronic kidney disease 15 or less: Kidney failureEl [facility] Children's HospitalGlucose villwshmnsy5231-57-98 05:30:00* Test Item Value Reference Range Interpretation Comments Glucose Level (test code = YAV6004) 289 74-118 [facility] Hospitalerum or plasma calcium measurement (mass/volume)2020-03-29 05:30:00* Test Item Value Reference Range Interpretation Comments Calcium Level (test code = 19544-7) 7.3 8.4-10.2 [facility] HospitalArterial blood pH rxhvxssbcvc0975-68-24 10:40:00* Test Item Value Reference Range Interpretation Comments Arterial Blood pH (test code = 2744-1) 7.52 7.35-7.45 [facility] HospitalpCO2 IuzH8396-05-80 10:40:00* Test Item Value Reference Range Interpretation Comments Arterial Blood Partial Pressure CO2 (test code = 2019-04) 37 35-45 [facility] HospitalpCO2 LnhQ9277-79-69 10:40:00* Test Item Value Reference Range Interpretation Comments Arterial Blood Partial Pressure O2 (test code = 2019-04) 115 80-105 [facility] HospitalArterial blood bicarbonate measurement (moles/volume)2020-03-28 10:40:00* Test Item Value Reference Range Interpretation Comments Arterial Blood HCO3 (test code = 1960-4) 30 22-26 [facility] HospitalArterial blood base excess by calculation 2020-03-28 10:40:00* Test Item Value Reference Range Interpretation Comments Arterial Blood Base Excess (test code = 1925-7) 7.0 -2-3 [facility] HospitalArterial blood oxygen saturation qqcqsfoebtw6575-11-27 10:40:00* Test Item Value Reference Range Interpretation Comments Arterial Blood Oxygen Saturation (test code = 2708-6) 99.0 95-98 [facility] HospitalFluoroscopic procedure less than one hour tercwzja6542-89-71 10:40:00* Test Item Value Reference Range Interpretation Comments FiO2 (test code = FiO2) 80 PRVC 16 340 80% +5 RIGHT RADALCHI [facility])2020-03-28 08:16:00 [facility] [address] [place] [address] Patient Name: ASHOK LOCKE MR #: [id number] : 1930 Age/Sex: 89/F Req #: [id number] Adm Physician: FRAN CARUOS MD Ordered by: MARIELLE MORENO MD Report #: [id number] Location: [facility] Room/Bed: [address] [address] Procedure: [id number] DX/CHEST SINGLE (PORTABLE) Exam Date: 03/28/20 Exam Time: 02 18 REPORT STATUS: Signed EXAMINA TION: CHEST SINGLE (PORTABLE) INDICATION: Pneumothorax, pneumonia COMPARISON: Multiple prior chest radiograph most recently 03/27/2020 FI NDINGS: LINES/TUBES:Support lines and tubes unchanged. LUNGS:Lung aera tion has improved from the prior radiograph. Persistent interstitial opacities of both lower lungs. PLEURA:Interval decrease in size of left pneumothorax now measuring up to 7 mm maximal thickness. MEDIASTINUM:The cardiomedias tinal silhouette appears unchanged in size and shape. BONES/SOFT TISSUES: Decreasing left chest wall subcutaneous emphysema. ABDOMEN:No free air unde r the diaphragm. IMPRESSION: Interval improvement in left pneumothora x, now measuring up to 7 mm maximum thickness. Interval improvement in pooja ng aeration and decrease in bilateral interstitial and airspace opacities. Signed by: Gwen Huynh MD on 03/28/2020 8:20 AM Dictated By: GWEN HUYNH MD 9 Transcribed By: COM MARQUEZ on 03/28/20819 COPY TO: MARIELLE MORENO MD Blood dacrocytes detection by light sxyenxbzia5135-26-91 05:30:00* Test Item Value Reference Range Interpretation Comments Tear Drop Cells (test code = 7791-7) FEW [facility] schistocytes detection by light xutxufknyd8467-29-23 05:30:00* Test Item Value Reference Range Interpretation Comments Schistocytes (test code = 800-3) RARE [facility] poikilocytosis detection by light kmypyqmreq1996-69-84 05:55:00* Test Item Value Reference Range Interpretation Comments Poikilocytosis (test code = 779-9) SLIGHT [facility] or plasma total bilirubin measurement (mass/volume)2020-03-27 05:55:00* Test Item Value Reference Range Interpretation Comments Total Bilirubin (test code = 1975-2) 0.8 0.2-1.2 [facility] HospitalFluoroscopic procedure less than one hour utybgeaa1845-36-53 05:55:00* Test Item Value Reference Range Interpretation Comments Aspartate Amino Transf (AST/SGOT) (test code = Aspartate Amino Transf (AST/SGOT)) 108 5-34 [facility] Hospitalerum or plasma alanine aminotransferase measurement (enzymatic activity/volume)2020-03-27 05:55:00* Test Item Value Reference Range Interpretation Comments Alanine Aminotransferase (ALT/SGPT) (test code = 1742-6) 73 0-55 [facility] Hospitaler[facility] or plasma protein measurement (mass/volume)2020-03-27 05:55:00* Test Item Value Reference Range Interpretation Comments Total Protein (test code = 2885-2) 5.0 6.5-8.1 [facility] Hospitaler[facility] or plasma albumin measurement (mass/volume)2020-03-27 05:55:00* Test Item Value Reference Range Interpretation Comments Albumin (test code = 1751-7) 1.9 3.5-5.0 [facility] HospitalPlasma globulin measurement (mass/volume) 2020-03-27 05:55:00* Test Item Value Reference Range Interpretation Comments Globulin (test code = 22964-3) 3.1 2.3-3.5 [facility] Hospitalerum or plasma albumin/globulin mass qrabq4223-87-59 05:55:00* Test Item Value Reference Range Interpretation Comments Albumin/Globulin Ratio (test code = 1759-0) 0.6 0.8-2.0 [facility] Hospitalerum or plasma alkaline phosphatase measurement (enzymatic activity/volume)2020-03-27 05:55:00* Test Item Value Reference Range Interpretation Comments Alkaline Phosphatase (test code = 6768-6) 209 40-150 [facility])2020-03-27 05:20:00 [facility] [address] [place] [address] Patient Name: ASHOK LOCKE MR #: [id number] : 1930 Age/Sex: 89/F Req #: [id number] [facility] Physician: FRAN CARUSO MD Ordered by: ANT YU MD Report #: [id number] Location: [facility] Room/Bed: [place] [address] Procedure: [id number] DX/CHEST SINGL E (PORTABLE) Exam Date: 03/27/20 Exam Time: 0510 REPORT STATUS: Signed EXAMINATION: CHEST SINGLE (PORTABLE) INDICATION: COVID COMPARISON: FINDINGS: AP view TUBES and LINES: Unchanged endotra cheal tube, nasogastric tube, and left chest tube. Unchanged right upper extre mity PICC. Left cardiac device. LUNGS: Unchanged diffuse pulmonary airspace disease. PLEURA: Unchanged left pneumothorax with air gap of 2.6 cm. HEART AND MEDIASTINUM: The cardiomediastinal silhouette is unchanged. BONES AND SOFT TISSUES: Mild interval decrease in subcutaneous emphysema of the left neck and left chest wall. UPPER ABDOMEN: No free air under the diap hragm. IMPRESSION: 1. Unchanged left pneumothorax. Slight interva l decrease in left-sided subcutaneous emphysema. 2. Unchanged diffuse pul monary airspace disease consistent with viral pneumonia. Signed by: Brandyn Banks MD on 03/27/2020 5:23 AM Dictated By: JAIME BANKS MD Elec tronically Signed By: JAIME BANKS MD on 03/27/20522 Transcribed By: PATRICIA Awad on 03/27/20522 COPY TO: ANT YU MD CHEST XRAY LINE EEHZOJMBN2962-12-62 12:06:00 [place] [address] Patient Name: ASHOK LOCKE MR #: [id number] : 1930 Age/Sex: 89/F Req #: [id number] Adm Physician: FRAN CARUSO MD Ordered by: FRAN CARUSO MD Report #: [id number] Location: [facility] Room/Bed: [place] [address] Procedure: DX/CHEST XR AY LINE PLACEMENT Exam Date: 03/26/20 Exam Time: 114 5 REPORT STATUS: Signed Examinat ion: Single AP view of the chest. COMPARISON: Portable chest performed same date INDICATION: Central line placement IMPRESSION: 1. Chikis es and Tubes: Interval placement of right-sided PICC line, which has its dista l tip projecting in the proximal to mid SVC. Other supporting tubes are unchan ged. Left upper chest cardiac device is unchanged. 2. No interval change in di ffuse pulmonary airspace disease, right greater than left. Signed by: Dr. Pawel Harris M.D. on 03/26/2020 12:07 PM Dictated By: PAWEL HARRIS MD 06 Transcribed B y: REGINALD on 03/26/201206 COPY TO: FRAN CARUSO MD CHEST SINGLE (PORTABLE)2020-03-26 05:53:00 [place] [address] Patient Name: ASHOK LOCKE MR #: [id number] : 1930 Age/Sex: 89/F Req #: [id number] Adm Physician: FRAN CARUSO MD Ordered by: ANT YU MD Report #: [id number] Location: [facility] Room/Bed: [place] [address] Procedure: DX/CHEST SINGL E (PORTABLE) Exam Date: 03/26/20 Exam Time: 0530 REPORT STATUS: Signed EXAMINATION: CHEST SINGLE (PORTABLE) INDICATION: INTUBATED COMPARISON: 03/25/2020 FINDINGS: AP view TUBES and LINES: Unchanged end otracheal tube, nasogastric tube, and left basilar chest tube. Left mechanical cardiac device. LUNGS: Unchanged diffuse pulmonary airspace disease. PLEURA: Unchanged small left pneumothorax with maximum apical air gap of 2.6 cm. No radiographic evidence of tension. HEART AND MEDIASTINUM: The cardio mediastinal silhouette is unchanged. BONES AND SOFT TISSUES: Interval d evelopment of prominent subcutaneous emphysema of the left chest wall and left base of the neck. UPPER ABDOMEN: No free air under the diaphragm. IMPRESSION: 1. Unchanged persistent left pneumothorax status post chest t ube placement. Interval development of large subcutaneous emphysema of the lef t chest wall and left base of the neck. Correlate with chest tube function. 2. Unchanged multifocal pulmonary airspace disease consistent with viral pn eumonia. Signed by: Jaime Banks MD on 03/26/2020 5:58 AM Dictated By: JAIME BANKS MD 0 558 Transcribed By: REGINALD on 03/26/20 0558 COPY TO: ANT YU MD Urine color iaghyfpnteait1339-78-01 05:30:00* Test Item Value Reference Range Interpretation Comments Urine Color (test code = 5778-6) BROWN YELLOW [facility] HospitalUrine nahdjdp2216-50-77 05:30:00* Test Item Value Reference Range Interpretation Comments Urine Clarity (test code = 08775-3) CLOUDY CLEAR [facility] Hospitalpecific gravity of Urine by Test strip 2020-03-26 05:30:00* Test Item Value Reference Range Interpretation Comments Urine Specific [place] (test code = 5811-5) 1.025 1.010-1.02 5 [facility] pH measurement by automated test vcbci5252-60-93 05:30:00* Test Item Value Reference Range Interpretation Comments Urine pH (test code = 46485-6) 5.5 5-7 [facility] HospitalUrine leukocyte esterase detection by mwsmmixh0980-04-94 05:30:00* Test Item Value Reference Range Interpretation Comments Urine Leukocyte Esterase (test code = 5799-2) LARGE NEGATIVE [facility] HospitalUrine nitrite jbgvphiga5563-40-17 05:30:00* Test Item Value Reference Range Interpretation Comments Urine Nitrite (test code = 89097-9) NEGATIVE NEGATIVE [facility] HospitalUrine protein measurement by test strip (mass/volume)2020-03-26 05:30:00* Test Item Value Reference Range Interpretation Comments Urine Protein (test code = 5804-0) 2+ NEGATIVE [facility] HospitalUrine glucose tuyikyyko8455-49-00 05:30:00* Test Item Value Reference Range Interpretation Comments Urine Glucose (UA) (test code = 2349-9) NEGATIVE NEGATIVE [facility] HospitalUrine ketones detection by automated test ugvct6579-08-82 05:30:00* Test Item Value Reference Range Interpretation Comments Urine Ketones (test code = 18090-7) NEGATIVE NEGATIVE [facility] HospitalUrine urobilinogen measurement by test strip (mass/volume)2020-03-26 05:30:00* Test Item Value Reference Range Interpretation Comments Urine Urobilinogen (test code = 50514-1) 1 0.2-1 [facility] HospitalU[facility] total bilirubin measurement (mass/volume)2020-03-26 05:30:00* Test Item Value Reference Range Interpretation Comments Urine Bilirubin (test code = 1978-6) SMALL NEGATIVE [facility] HospitalUrine erythrocytes qvfhvrnqb2060-77-11 05:30:00* Test Item Value Reference Range Interpretation Comments Urine Blood (test code = 70898-7) MODERATE NEGATIVE [facility] HospitalAutomated urine sediment leukocyte count by microscopy (number/high power field)2020-03-26 05:30:00* Test Item Value Reference Range Interpretation Comments Urine WBC (test code = 5821-4) NONE 0-5 [facility] HospitalErythrocytes detection in urine sediment by light cbvlvjkwmq7696-61-23 05:30:00* Test Item Value Reference Range Interpretation Comments Urine RBC (test code = 33172-9) 11-20 0-5 [facility] HospitalBacteria detection in urine sediment by light irvdrzalwf7609-70-52 05:30:00* Test Item Value Reference Range Interpretation Comments Urine Bacteria (test code = 30700-3) MANY NONE [facility] HospitalEpithelial cells detection in urine sediment by light jftzyjfvnd5870-71-42 05:30:00* Test Item Value Reference Range Interpretation Comments Urine Epithelial Cells (test code = 45068-0) FEW NONE [facility]2020-03-25 16:20:00 [facility] [address] [place] [address] Patient Name: ASHOK LOCKE MR #: [id number] : 1930 Age/Sex: 89/F Req #: [id number] Adm Physician: FRAN CARUSO MD Ordered by: MARIELLE MORENO MD Report #: [id number] Location: [facility] Room/Bed: [place] [address] Procedure: [id number] DX/CHEST SINGLE (PORTABLE) Exam Date: 03/25/20 Exam Time: 16 00 REPORT STATUS: Signed EXAMINA TION: CHEST SINGLE (PORTABLE) INDICATION: Left chest tube pl acement [id number] COMPARISON: Chest radiograph 03/25/2020 1320 9:00 PM FINDINGS: AP view TUBES and LINES: Interval placeme nt of left-sided chest tube with tip overlying the medial aspect of the inferi or cardiac silhouette. Unchanged single lead pacemaker. Endotracheal and NG/OG tubes remain in stable. LUNGS: Interval significant decrease in size of t he left pneumothorax with reexpansion of the left lung. Persistent bilateral multifocal pneumonia. PLEURA: No pleural effusion or pneumothorax. HEART AND MEDIASTINUM: The cardiomediastinal silhouette is unremarkable.. BONES AND SOFT TISSUES: No acute osseous lesion. Small amount of subcuta neous emphysema along the left chest wall. UPPER ABDOMEN: No free air und er the diaphragm. IMPRESSION: Interval placement of a left-sided sid st tube with tip overlying the inferior cardiac silhouette, medially. Tip michelle ot be localized on the frontal single x-ray. Interval significant decrea se in size of the left pneumothorax, now small with a gap of 2.6 cm resulting in re-expansion of the left lung. Unchanged bilateral multifocal pneumonia. Signed by: Dr. Loida Barker M.D. on 03/25/2020 4:24 PM Dictated By: LOIDA BARKER MD 23 Transcribed By: REGINALD on 03/25/201623 COPY TO: MARIELLE MORENO MD CHEST SINGLE (PORTABLE)2020-03-25 13:39:00 [place] [address] Patient Name: ASHOK LOCKE MR #: [id number] : 1930 Age/Sex: 89/F Req #: [id number] Adm Physician: RFAN CARUSO MD Ordered by: ANT YU MD Report #: [id number] Location: [facility] Room/Bed: [place] [address] Procedure: [id number] DX/CHEST SINGL E (PORTABLE) Exam Date: 03/25/20 Exam Time: 1320 REPORT STATUS: Signed EXAMINATION: CHEST SINGLE (PORTABLE) INDICATION: INTUBATED 20200325 COMPARISON: 03/23/2020 FINDINGS: AP view TUBES and LINES: Interval intubation with endotracheal tube overlying the mid trach ea, 4 cm above the lupillo. Unchanged single lead pacemaker overlying the right ventricle. Infradiaphragmatic NG/OG tube. Tip is outside the field of view. LUNGS/PLEURA: Interval development of a large left pneumothorax with mild shifting of the mediastinum towards the right and resulted in complete collapse of the left lung. Multifocal pneumonia in the right lung. No pleural eff usions. HEART AND MEDIASTINUM: The cardiomediastinal silhouette is unremar kable.. BONES AND SOFT TISSUES: No acute osseous lesion. Soft tissues a re unremarkable. UPPER ABDOMEN: No free air under the diaphragm. IMPRESSION: Interval intubation with endotracheal tube in adequate position. Interval development of a large left pleural effusion with complete collapse of the left lung and mild rightward deviation of the mediastinum suggestive of some degree of tension. Unchanged multifocal pneumonia. These fi ndings were communicated to Dr. Yu on 03/25/2020 at 1:40 PM. Signed by: Dr. Loida Barker M.D. on 03/25/2020 1:45 PM Dictated By: LYSSA BARKER MD 1345 COPY TO: RILEY YU MD CHEST SINGLE (PORTABLE)2020-03-23 13:21:00 [place] [address] Patient Name: ASHOK LOCKE MR #: [id number] : 1930 Age/Sex: 89/F Req #: [id number] Adm Physician: Ordered by: GABO DUTTA DO Report #: [id number] Location: ER Room/Bed: Procedure: [id number] DX/CHEST SINGLE (PORTABLE) Exam Date: 03/23/20 Exam Time: 130 2 REPORT STATUS: Signed EXAMINAT ION: CHEST SINGLE (PORTABLE) INDICATION: Pneumonia, altered mental sta tus COMPARISON: Chest radiograph of 03/08/2020 FINDINGS: LINE S/TUBES:Left chest pacer. LUNGS:The lungs are moderately inflated. There is perihilar fullness and indistinctness of the pulmonary vasculature. Interval increase in predominantly peripheral right lung hazy opacities. PLEURA:No pleural effusion or pneumothorax. MEDIASTINUM:Cardiomediastinal silhouette is stably enlarged. Atherosclerotic calcifications of the thoracic aorta. BONES/SOFT TISSUES:No acute osseous injury. ABDOMEN:No free air under the diaphragm. IMPRESSION: Interval increase in peripheral right lung bautista zy opacities which may represent pneumonia in the proper clinical setting. Unchanged cardiomegaly and pulmonary interstitial edema. Signed by: Sonal Huynh MD on 03/23/2020 1:24 PM Dictated By: GWEN HUYNH MD 1324 Transcribed By: REGINALD on 03/23/20 1 324 COPY TO: GABO DUTTA DO Serum or plasma creatine kinase measurement (enzymatic activity/volume)2020-03-23 13:10:00* Test Item Value Reference Range Interpretation Comments Creatine Kinase (test code = 2157-6) 127 29-168 [facility] Hospitalerum or plasma creatine kinase MB measurement (mass/volume)2020-03-23 13:10:00* Test Item Value Reference Range Interpretation Comments Creatine Kinase MB (test code = 93405-0) 3.40 0-5.0 [facility] HospitalTroponin I measurement by highly sensitive enzyme dpcdismqwye8810-67-56 13:10:00* Test Item Value Reference Range Interpretation Comments Troponin I (test code = 46396-1) 0.013 0-0.300 [facility] HospitalFluoroscopic procedure less than one hour oocnuqxr5457-63-33 13:10:00* Test Item Value Reference Range Interpretation Comments Coronavirus (PCR) (test code = Coronavirus (PCR)) DETECTED NOTD ETECTED SARS-COV2/RT-PCRResults are for the detection of SARS-COV-2 RNA. The SARS-COV-2 RNA is generally detectable in nasopharyngeal swab specimens during the acute ph ase of infection. Positive results are indicitive of active infection with SARS- COV-2; clinical correlation with patient history and other diagnostic informatio n is necessary to determine patient infection status. Positive results do not ru le out bacterial infection or co-infection with other viruses. The agent detecte d may not be the definite cause of the disease.The limit of detection for this a ssay is 250 copies/mLThe SARS-CoV-2 test is a rapid, real-time RT-PCR test inten ded for the qualitative detection of nucleic acid from SARS-CoV-2 in nasopharyng eal swab specimen collected from individuals suspected of COVID-19 by their [facility] provider. This test has not been Food and Drug Administration (FDA) clear ed or approved and has been authorized by FDA under an Emergency Use Authorizati on (EUA). This EUA will be effective until the declaration that circumstances ex ist justifying the authorization of the emergency use of in vitro diagnostic maurice t for detection and or diagnosis of COVID-19 is terminated under section 564(b) of the Act, or the the EUA is revoked under 564(g) of the ACT.Testing performed by [address] [id number] [place], [place] [address] leukocytes automated count (number/volume) 2020-03-10 04:55:00* Test Item Value Reference Range Interpretation Comments White Blood Count (test code = 6690-2) 8.78 4.8-10.8 [facility] HospitalBl[facility] erythrocytes automated count (number/volume)2020-03-10 04:55:00* Test Item Value Reference Range Interpretation Comments Red Blood Count (test code = 789-8) 3.91 3.6-5.1 [facility] HospitalBlood hemoglobin measurement (moles/volume)2020-03-10 04:55:00* Test Item Value Reference Range Interpretation Comments Hemoglobin (test code = 57135-0) 10.4 12.0-16.0 [facility] HospitalAutomated blood hematocrit (volume fraction)2020-03-10 04:55:00* Test Item Value Reference Range Interpretation Comments Hematocrit (test code = 4544-3) 35.7 34.2-44.1 [facility] HospitalAutomated erythrocyte mean corpuscular eaveeg8557-31-55 04:55:00* Test Item Value Reference Range Interpretation Comments Mean Corpuscular Volume (test code = 787-2) 91.3 81-99 [facility] HospitalAutomated erythrocyte mean corpuscular hemoglobin (mass per erythrocyte)2020-03-10 04:55:00* Test Item Value Reference Range Interpretation Comments Mean Corpuscular Hemoglobin (test code = 785-6) 26.6 28-32 [facility] HospitalAutomated erythrocyte mean corpuscular hemoglobin concentration measurement (mass/volume)2020-03-10 04:55:00* Test Item Value Reference Range Interpretation Comments Mean Corpuscular Hemoglobin Concent (test code = 786-4) 29.1 31-35 [facility] HospitalRDW NnkBf-Dmm1665-09-19 04:55:00* Test Item Value Reference Range Interpretation Comments Red Cell Distribution Width (test code = 01636-0) 16.8 11.7 -14.4 [facility] HospitalAutomated blood platelet count (count/volume)2020-03-10 04:55:00* Test Item Value Reference Range Interpretation Comments Platelet Count (test code = 777-3) 372 140-360 [facility] HospitalAutquorum healthed blood segmented neutrophil count as percentage of total oprfhjlsgx0721-11-55 04:55:00* Test Item Value Reference Range Interpretation Comments Neutrophils (%) (Auto) (test code = 19507-9) 78.7 38.7-80.0 [facility] HospitalAutomated blood lymphocyte count as percentage ot total rkbdtjqzvn9776-76-77 04:55:00* Test Item Value Reference Range Interpretation Comments Lymphocytes (%) (Auto) (test code = 736-9) 7.3 18.0-39.1 [facility] HospitalAutomated blood monocyte count as percentage of total kmdiafqkwd6365-38-32 04:55:00* Test Item Value Reference Range Interpretation Comments Monocytes (%) (Auto) (test code = 5905-5) 10.9 4.4-11.3 [facility] HospitalAutomated blood eosinophil count as percentage of total cqtoadtywa8140-97-31 04:55:00* Test Item Value Reference Range Interpretation Comments Eosinophils (%) (Auto) (test code = 713-8) 2.1 0.0-6.0 [facility] HospitalAutomated blood basophil count as percentage of total cejlbtczpr7391-29-53 04:55:00* Test Item Value Reference Range Interpretation Comments Basophils (%) (Auto) (test code = 706-2) 0.7 0.0-1.0 [facility] HospitalFluoroscopic procedure less than one hour jtfebntx5782-56-67 04:55:00* Test Item Value Reference Range Interpretation Comments IM GRANULOCYTES % (test code = IM GRANULOCYTES %) 0.3 0.0- 1.0 [facility] HospitalAutomated blood neutrophil count 2020-03-10 04:55:00* Test Item Value Reference Range Interpretation Comments Neutrophils # (Auto) (test code = 751-8) 6.9 2.1-6.9 [facility] HospitalBlood lymphocytes count (number/volume) 2020-03-10 04:55:00* Test Item Value Reference Range Interpretation Comments Lymphocytes # (Auto) (test code = 33893-2) 0.6 1.0-3.2 [facility] HospitalBlmadison hospital monocytes automated count (number/volume)2020-03-10 04:55:00* Test Item Value Reference Range Interpretation Comments Monocytes # (Auto) (test code = 742-7) 1.0 0.2-0.8 [facility] HospitalAutomated blood eosinophil count 2020-03-10 04:55:00* Test Item Value Reference Range Interpretation Comments Eosinophils # (Auto) (test code = 711-2) 0.2 0.0-0.4 [facility] HospitalAutomated blood basophil count (count/volume)2020-03-10 04:55:00* Test Item Value Reference Range Interpretation Comments Basophils # (Auto) (test code = 704-7) 0.1 0.0-0.1 [facility] HospitalFluoroscopic procedure less than one hour hxsygiag3709-09-43 04:55:00* Test Item Value Reference Range Interpretation Comments Absolute Immature Granulocyte (auto (maurice t code = Absolute Immature Granulocyte (auto) 0.03 0-0.1 [facility] HospitalBlmad[facility] hospital platelets count by estimate (number/volume)2020-03-10 04:55:00* Test Item Value Reference Range Interpretation Comments Platelet Estimate (test code = 29297-1) SLIGHTLY INCREASED [facility] HospitalPlatelet kcpkvmmvdh4633-09-84 04:55:00* Test Item Value Reference Range Interpretation Comments Platelet Morphology Comment (test code = 86111-6) RARE EDTA CLUMPIN G [facility] hypochromia detection by light mlwpfbuepx6449-37-73 04:55:00* Test Item Value Reference Range Interpretation Comments Hypochromasia (test code = 728-6) SLIGHT [facility] spherocytes detection by light ylxqcishpf7328-99-35 04:55:00* Test Item Value Reference Range Interpretation Comments Spherocytes (test code = 802-9) AL [facility] target cells detection by light kspxgbrqgh8812-28-59 04:55:00* Test Item Value Reference Range Interpretation Comments Target Cells (test code = 04294-1) N [facility] ovalocytes detection by light uzcmelhbsb8451-32-04 04:55:00* Test Item Value Reference Range Interpretation Comments Ovalocytes (test code = 774-0) FEW [facility] HospitalRB kwjneignyb3413-63-89 04:55:00* Test Item Value Reference Range Interpretation Comments Red Cell Morphology Comment (test code = 6742-1) NORMAL [facility] HospitalProthrombin time (PT) in platelet poor plasma by coagulation bgwkj0567-26-62 04:55:00* Test Item Value Reference Range Interpretation Comments Prothrombin Time (test code = 5902-2) 29.9 11.9-14.5 [facility] HospitalINR in Platelet poor plasma by Coagulation mgkiv2511-58-36 04:55:00* Test Item Value Reference Range Interpretation Comments Prothromb Time International Ratio (test code = 6301-6) 2.61 Oral Anticoagulant Therapy INR Values:1. Low Intensity Therapy 1.5 - 2.02 . Moderate Intensity Therapy 2.0 - 3.03. High Intensity Therapy(1) 2.5 - 3. 54. High Intensity Therapy(2) 3.0 - 4.05. Panic Value INR > 5.0 [facility] Hospitalerum or plasma sodium measurement (moles/volume)2020-03-10 04:55:00* Test Item Value Reference Range Interpretation Comments Sodium Level (test code = 2951-2) 138 136-145 [facility] Hospitalerum or plasma potassium measurement (moles/volume)2020-03-10 04:55:00* Test Item Value Reference Range Interpretation Comments Potassium Level (test code = 2823-3) 3.7 3.5-5.1 [facility] Hospitalerum or plasma chloride measurement (moles/volume)2020-03-10 04:55:00* Test Item Value Reference Range Interpretation Comments Chloride Level (test code = 2075-0) 109 98-107 [facility] Hospitalerum or plasma carbon dioxide, total measurement (moles/volume)2020-03-10 04:55:00* Test Item Value Reference Range Interpretation Comments Carbon Dioxide Level (test code = 2028-9) 22 22-29 [facility] Hospitalerum or plasma anion mji2365-26-21 04:55:00* Test Item Value Reference Range Interpretation Comments Anion Gap (test code = 55174-2) 10.7 8-16 [facility] plasma urea nitrogen measurement (mass/volume)2020-03-10 04:55:00* Test Item Value Reference Range Interpretation Comments Blood Urea Nitrogen (test code = 3094-0) 13 7-26 [facility] plasma creatinine measurement (mass/volume)2020-03-10 04:55:00* Test Item Value Reference Range Interpretation Comments Creatinine (test code = 2160-0) 0.61 0.57-1.11 [facility]er[facility] or plasma urea nitrogen/creatinine mass opzih6535-69-46 04:55:00* Test Item Value Reference Range Interpretation Comments BUN/Creatinine Ratio (test code = 3097-3) 21 6-25 [facility] HospitalEstimated glomerular filtration rate (GFR) bcyyuxdejzwyv6866-25-63 04:55:00* Test Item Value Reference Range Interpretation Comments Estimat Glomerular Filtration Rate (test code = 954466008) > 60 >60 Ranges were taken from the National Kidney Disease Education Program and the [facility] literature.Reference ranges:60 or greater: Zmlmgz15-56 ( for 3 consecutive months): Chronic kidney disease 15 or less: Kidney failureEl [facility] Children's HospitalGlucose zanwgvoqvep9014-57-39 04:55:00* Test Item Value Reference Range Interpretation Comments Glucose Level (test code = DFO7227) 102 74-118 [facility]er[facility] or plasma calcium measurement (mass/volume)2020-03-10 04:55:00* Test Item Value Reference Range Interpretation Comments Calcium Level (test code = 81349-6) 8.1 8.4-10.2 [facility] HospitalBlood spherocytes detection by light llhbbnvrde6820-21-28 04:55:00* Test Item Value Reference Range Interpretation Comments Spherocytes (test code = 802-9) AL [facility] HospitalBlood target cells detection by light wscrfqbehx3716-89-20 04:55:00* Test Item Value Reference Range Interpretation Comments Target Cells (test code = 60472-1) N [facility] HospitalHOULDER RIGHT LQYWKBXX1395-43-57 11:03:00 [facility] [address] [address] Patient Name: ASHOK LOCKE MR #: [id number] : 1930 Age/Sex: 89/F Req #: [id number] Adm Physician: FRAN CARUSO MD Ordered by: DEJA HERRMANN DO Report #: [id number] Location: MED/SURG2 Room/Bed: [facility] Procedure: DX/SHOULD ER RIGHT COMPLETE Exam Date: 03/09/20 Exam Time: 094 0 REPORT STATUS: Signed EXAMINAT ION: SHOULDER RIGHT COMPLETE, HUMERUS RIGHT 2+VIEWS INDICATION: Fractu re COMPARISON: None FINDINGS: Again visualized is an old rig ht humeral neck fracture with associated callus formation. No acute fracture o r dislocation. Alignment is near-anatomic. The soft tissues appear unremarkabl e. Increased interstitial opacities in the partially visualized right lung. IMPRESSION: Old right humeral neck fracture. No acute osseous injury. Increased interstitial opacities of the partially visualized right lung. S igned by: Gwen Huynh MD on 03/09/2020 11:06 AM Dictated By: GWEN HUYNH MD 110 Transcribed By: DELIA MIGUEL on 03/09/20 110 COPY TO: DEJA HERRMANN DO HUMERUS RIGHT 2+EZIEY9440-11-50 11:03:[address] [address] Patient Name: ASHOK LOCKE MR #: [id number] : 1930 Age/Sex: 89/F Req #: [id number] Adm Physician: FRAN CARUSO MD Ordered by: FRAN CARUSO MD Report #: [id number] Location: MED/SURG Room/Bed: [facility] Procedure: DX/HUMERUS RIGHT 2+VIEWS Exam Date: 03/09/20 Exam Time: 0940 REPORT STATUS: Signed EXAMINATION: SHOULDER RIGHT COMPLETE, HUMERUS RIGHT 2+VIEWS INDICATION: Fracture COMPARISON: None FINDINGS: Again visualized is an old right h umeral neck fracture with associated callus formation. No acute fracture or di slocation. Alignment is near-anatomic. The soft tissues appear unremarkable. I ncreased interstitial opacities in the partially visualized right lung. I MPRESSION: Old right humeral neck fracture. No acute osseous injury. Inc reased interstitial opacities of the partially visualized right lung. Ana d by: Gwen Huynh MD on 03/09/2020 11:06 AM Dictated By: GWEN HUYNH MD El ectronically Signed By: GWEN HUYNH MD on 03/09/20 110 Transcribed By: REGINALD on 03/09/206 COPY TO: FRAN CARUSO MD Blood platelet clump detection by light kxtaoyoppr7408-47-43 05:20:00* Test Item Value Reference Range Interpretation Comments Clumped Platelets (test code = 7796-6) RARE NONE [facility] HospitalBlood poikilocytosis detection by light yqyrntcvwf6702-27-74 05:20:00* Test Item Value Reference Range Interpretation Comments Poikilocytosis (test code = 779-9) SLIGHT [facility] HospitalBlood anisocytosis detection by light uqoqzmqawa9141-11-10 05:20:00* Test Item Value Reference Range Interpretation Comments Anisocytosis (test code = 702-1) SLIGHT [facility] HospitalElliptocyte trkypoqjl6533-77-32 05:20:00 * Test Item Value Reference Range Interpretation Comments Elliptocytes (test code = 00917-4) SLIGHT [facility] Hospitaler[facility] or plasma total bilirubin measurement (mass/volume)2020-03-09 05:20:00* Test Item Value Reference Range Interpretation Comments Total Bilirubin (test code = 1975-2) 0.7 0.2-1.2 [facility] HospitalFluoroscopic procedure less than one hour tznrxuim7179-89-87 05:20:00* Test Item Value Reference Range Interpretation Comments Aspartate Amino Transf (AST/SGOT) (test code = Aspartate Amino Transf (AST/SGOT)) 12 5-34 [facility] Hospitalerum or plasma alanine aminotransferase measurement (enzymatic activity/volume)2020-03-09 05:20:00* Test Item Value Reference Range Interpretation Comments Alanine Aminotransferase (ALT/SGPT) (test code = 1742-6) 6 0-55 [facility] Hospitaler[facility] or plasma protein measurement (mass/volume)2020-03-09 05:20:00* Test Item Value Reference Range Interpretation Comments Total Protein (test code = 2885-2) 6.7 6.5-8.1 [facility] Hospitalerum or plasma albumin measurement (mass/volume)2020-03-09 05:20:00* Test Item Value Reference Range Interpretation Comments Albumin (test code = 1751-7) 2.7 3.5-5.0 [facility] HospitalPlasma globulin measurement (mass/volume) 2020-03-09 05:20:00* Test Item Value Reference Range Interpretation Comments Globulin (test code = 16329-7) 4.0 2.3-3.5 [facility] Hospitalerum or plasma albumin/globulin mass gvkqo6490-00-29 05:20:00* Test Item Value Reference Range Interpretation Comments Albumin/Globulin Ratio (test code = 1759-0) 0.7 0.8-2.0 [facility] Hospitaler[facility] or plasma alkaline phosphatase measurement (enzymatic activity/volume)2020-03-09 05:20:00* Test Item Value Reference Range Interpretation Comments Alkaline Phosphatase (test code = 6768-6) 121 40-150 [facility] HospitalBlood platelet clump detection by light lkryrqgips2639-58-39 05:20:00* Test Item Value Reference Range Interpretation Comments Clumped Platelets (test code = 7796-6) RARE NONE [facility] HospitalFluoroscopic procedure less than one hour ioguftsc0578-10-74 19:50:00* Test Item Value Reference Range Interpretation Comments Coronavirus (PCR) (test code = Coronavirus (PCR)) NOT DETECTED NOTD ETECTED SARS-COV-2 (COVID19), HIGHRISK, RT-PCRNegative results do not preclude SARS-CoV- 2 infection and should not be used as the sole basis for patient management deci sions. Negative results must be combined with clinical observations, patient his tory, and epidemiological information. Optimum specimen types and timing for pea k viral levels during infections caused by SARS-CoV-2 have not been determined. Collection of multiple specimens ot types of specimens may be necessary to detec t virus. Improper specimen collection and handling, sequence variability under p rimers/probes, or organism present below the limit of detection may lead to fals e negative results. Positive and negative predictive values of testing are highl y dependent on prevalance. False negative test results are more likely when prev alence is high.The expected result is negative (not detected).The SARS-CoV-2 maurice t is intended for the qualitative detection of nucleic acid from SARS-CoV-2 in n asopharyngeal and oropharyngeal swab samples from patients who meet COVID-19 cli nical and or epidemiological criteria. For lower respiratory tract specimens, th e assay is submitted for authoriztion by FDA under an Emergency Use Authorizatio n (EUA). Testing methodology is real time RT-PCR. If received as separate collec tion devices, nasopharygeal and oropharyngeal specimens are combined for analysi s. Additional specimens may be split to a separate accession for analysi and rep orting as this test includes a single unit of service.Test results must be corre lated with clinical presentation and evaluated in the context of other laborator y and epidemiologic data. Test performance can be affected because the epidemiol ogy and clinical spectrum of infection caused by SARS-CoV-2 is not fully known. For example, the optimum types of specimens to collect and when during the cours e of infection these specimens are most likely to contain detectable viral RNA m ay not be known.This test has not been Food and Drug Administration (FDA) cleare d or approved and has been authorized by FDA under an Emergency Use Authorizatio n (EUA). The test is only authorized for the duration of the declaration that ci rcumstances exist justifying the authorization of emergency use of in vitro diag nostic tests for detection and/or diagnosis of SARS-CoV-2 under section 564(b) o f the Act, 21 U.S.C. section 360bbb-3(b)(1), unless the authorization is termina carey or revoked sooner. [facility] are certified under the C linical Laboratory Improvement Amendments of 1988 (CLIA), 42 U.S.C. section 263a , to perform high complexity tests.Testing performed by [facility] [address] [phone] Director: Coleman Sibley M.D.[facility] # [id number] [facility] SINGLE (PORTABLE)2020-03-08 18:31:00 [facility] [address] [address] Patient Name: ASHOK LOCKE MR #: [id number] : 1930 Age/Sex: 89/F Req #: [id number] Adm Physician: Ordered by: CHRISTOPHER RILEY MD Report #: [id number] Location: ER Room/Bed: Procedure: [id number] DX/CHEST SIN GLE (PORTABLE) Exam Date: 03/08/20 Exam Time: 1750 REPORT STATUS: Signed Examination: Single AP view of the chest. COMPARISON: Portable chest 01/29/2016, CT abdo men and pelvis performed same date INDICATION: Status post fall IM PRESSION: 1. Lines and Tubes: Left upper chest single lead cardiac device with distal tip projecting in the right ventricle. 2. Lungs are well-infla carey. Diffuse bilateral interstitial opacities extending from the mila suggesti ng interstitial pulmonary edema. No consolidation. No effusion is noted in thi s single AP view, although small right effusion is noted on CT performed same date. 3. Enlarged cardiac silhouette. No pulmonary venous congestion. 4. Cortical step-off at the right proximal humeral metaphysis, likely representin g an acute fracture in the setting of trauma. Please see dedicated humerus jing ms for further evaluation. Signed by: Dr. Pawel Harris M.D. on 020 6:34 PM Dictated By: PAWEL HARRIS MD 33 Transcribed By: REGINALD on 03/08/201833 COPY TO: CHRISTOPHER RILEY MD CT CERVICAL SPINE [id number] 18:22:00 [id number] [address] Patient Name: ASHOK LOCKE MR #: [id number] : 1930 Age/Sex: 89/F Req #: [id number] Adm Physician: Ordered by: CHRISTOPHER RILEY MD Report #: [id number] Location: ER Room/Bed: Procedure: [id number] CT/CT CERVIC AL SPINE WO Exam Date: 03/08/20 Exam Time: 1750 REPORT STATUS: Signed CT CERVICAL SP INE WO HISTORY: Trauma COMPARISON: None. TECHNIQUE: CT of the ce rvical spine without contrast. Sagittal and coronal reformations were created . One or more of the following dose reduction techniques were used: Automated exposure control, adjustment of the mA and/or kV according to patient size, a nd/or utilization of iterative reconstruction technique. FINDINGS: Jarad ne demineralization limits evaluation. Cervical lordosis is preserved. There is no scoliosis or subluxation. No definite acute fracture or compression def ormity is seen. The craniocervical junction is intact. No gross spinal ca nal masses are seen. The paravertebral and paraspinal soft tissues are unrema rkable. Multilevel advanced spondylotic changes are most prominent at C3-C 4 and C4-C5. There is at least mild canal stenosis from C3-C4 to C5-C6 due to posterior disc osteophyte complexes. Multilevel mild to moderate bilateral for aminal stenoses due to uncovertebral and facet arthrosis are present. Th ere is mild scarring in the lung apices. Mild bilateral carotid bulb calcified plaque is present. IMPRESSION: No acute osseous abnormalities. Multile kendell advanced spondylosis as described above. Signed by: Dr. Kranthi you M.D. on 03/08/2020 6:27 PM Dictated By: KRANTHI HUBER MD Electronic ally Signed By: KRANTHI HUBER MD on 03/08/201826 Transcribed By: REGINALD on 03/08/201826 COPY TO: CHRISTOPHER RILEY MD CT ABDOMEN/PELVIS WO 2020-03-08 18:15:00 [address] [address] Patient Name: ASHOK LOCKE MR #: [id number] : 1930 Age/Sex: 89/F Req #: [id number] Adm Physician: Ordered by: CHRISTOPHER RILEY MD Report #: [id number] Location: ER Room/Bed: Procedure: [id number] CT/CT ABDOME N/PELVIS WO Exam Date: 03/08/20 Exam Time: 1750 REPORT STATUS: Signed EXAMINATION: CT of the abdomen and pelvis without contrast. TECHNIQUE: Spiral CT images of the abdomen and pelvis were performed from the lung bases to the lesser tro chanters. No intravenous contrast was given per physician's request. Coronal and sagittal reformatted images were obtained. COMPARISON: None. CLI NICAL HISTORY:Status post fall, right lower quadrant pain since yesterday DISCUSSION: ABSENCE OF INTRAVENOUS CONTRAST DECREASES SENSITIVITY FOR DETECT ION OF FOCAL LESIONS AND VASCULAR PATHOLOGY. ABDOMEN/PELVIS: LOWER T HORAX: Small right pleural effusion and associated compressive atelectasis of the posterior right lower lobe. Trace left effusion and associated atelectatic changes in the posterior left lower lobe. Moderate cardiomegaly . Atheroscler otic calcification of the coronary arteries and thoracic aorta. Moderate hiata l hernia containing stomach fundus and cardia. Distal portion of pacer wire no carey in the right ventricle. HEPATOBILIARY: 1.1 cm low-density simple cyst i n hepatic segment III (series 2, image 20). Calcified granuloma in hepatic seg ment IV (series 2, image 27). No other focal lesions. No intra or extrahepati c biliary ductal dilation. GALLBLADDER: Cholecystectomy clips. SP FRANK: No splenomegaly. Multiple calcified splenic granulomata PANCREAS: No focal masses or ductal dilatation. ADRENALS: No adrenal nodules. KIDN EYS/URETERS: Right mild pelvocaliectasis. No hydronephrosis. Bilateral extrare nal pelves. Marked dilation of the ureters bilaterally, right greater than lef t. Punctate radiopaque calculus is noted in the mid right ureter (series 2, im age 43). No distal obstructing calculus is identified. Mostly exophytic 1.5 cm fluid density simple cyst in the posterior inferior left kidney (series 2, image 27). No other contour abnormalities. PELVIC ORGANS/BLADDER: Moderat e to marked distention of the bladder. Uterus is not clearly visualized. No ad nexal masses. PERITONEUM/RETROPERITONEUM: No free air or fluid. LYMPH NODES: No intra-abdominal,retroperitoneal, pelvic or inguinal lymphadenopathy. VESSELS: Moderate to marked atherosclerotic calcification of the abdominal aorta and proximal iliac vessels. GI TRACT: No bowel dilation or evidence of obstruction. No pericolonic inflammatory changes. A few diverticula are n oted in the sigmoid colon, without diverticulitis. BONES AND SOFT TISSUES : Generalized osteopenia. Acute, minimally displaced fracture of the junction of the right superior pubic ramus with the acetabulum (best visualized on jackeline nal image 46). Acute, displaced fracture of the right inferior pubic ramus, wi th medial displacement of the distal fracture fragment by approximately one sh aft width (series 2, image 76). No significant associated hematoma. No other acute, displaced fractures are identified. 3 orthopedic screws are noted in t he proximal right femur, which are intact. Mild mild to moderate bilateral hip degenerative changes. No aggressive lytic or blastic lesions. Soft tissu es are grossly unremarkable. IMPRESSION: 1.Acute, minimally displaced fr acture of the junction of the right superior pubic ramus with the acetabulum. 2.Acute, displaced fracture of the right inferior pubic ramus, with medial displacement of the distal fracture fragment by approximately one shaft width. No significant associated hematoma. 3. Moderate to marked distention of the bladder. Marked dilation of the ureters bilaterally right greater than left. No large obstructing stones are identified. Findings may relate to bladder obstruction. 4. Punctate intraluminal calculus in the right mid ureter. 5. Small right pleural effusion and trace left effusion with associated atel ectatic changes in the lower lobes. 6. Moderate hiatal hernia containing th e stomach fundus and cardia. Signed by: Dr. Pawel Harris M.D. on 03/08 6:31 PM Dictated By: PAWEL HARRIS MD 30 Transcribed By: REGINALD on 03/08/201830 COPY TO: CHRISTOPHER RIELY MD CT BRAIN [id number] 18:14:00 [place] [address] Patient Name: ASHOK LOCKE MR #: [id number] : 1930 Age/Sex: 89/F Req #: [id number] Adm Physician: Ordered by: CHRISTOPHER RILEY MD Report #: [id number] Location: ER Room/Bed: Procedure: [id number] CT/CT BRAIN WO Exam Date: 03/08/20 Exam Time: 1750 REPORT STATUS: Signed CT BRAIN WO HISTOR Y: Trauma COMPARISON: Head CT 10/01/2019 Technique: Noncontrast axi al scans were obtained from skull base to the vertex. Coronal and sagittal re constructions obtained from the axial data. One or more of the following dose reduction techniques were used: Automated exposure control, adjustment of the mA and/or kV according to patient size, and/or utilization of iterative recon struction technique. DISCUSSION: Scalp/Skull: Unremarkable. Brain bourgeois lci: Mildly prominent. Ventricles: Compensatory dilatation. Extra-axial spac es: No masses or fluid collections. Carotid siphon calcifications are present. Parenchyma: Focal encephalomalacia in the right inferior frontal gyrus (pars orbitalis), right occipital pole, and left anterior cingulate gyrus may be from remote infarcts. 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 Severe bilateral deep white matter hypodensity is likely chronic microvascul ar ischemic change. Otherwise, no masses, hemorrhage, or large vascular ter ritory acute infarct. Dural sinuses: No abnormal densities. Sellar/Supra sellar region: Intact. Skull base: Intact. Incidental findings: Bilateral oc ular lens replacement. Mild left maxillary sinus mucosal thickening. IMPR ESSION: 1. No acute intracranial abnormalities. 2. Old right inferior fron tera gyrus, right occipital pole, and left anterior cingulate gyrus cortical in farcts. 3. Severe supratentorial chronic microvascular ischemic change with o ld bilateral thalamic lacunar infarcts. 4. Generalized cerebral volume los s. Signed by: Dr. Kranthi Huber M.D. on 03/08/2020 6:22 PM Dicta carey By: KRANTHI HUBER MD 21 COPY TO: JUAN RILEY RD, MD Urine color vcanwirtampfw5988-71-03 18:10:00* Test Item Value Reference Range Interpretation Comments Urine Color (test code = 5778-6) YELLOW YELLOW [facility] kxyedlh3015-06-45 18:10:00* Test Item Value Reference Range Interpretation Comments Urine Clarity (test code = 18911-9) CLOUDY CLEAR [facility] Hospitalpecific gravity of Urine by Test strip 2020-03-08 18:10:00* Test Item Value Reference Range Interpretation Comments Urine Specific Ralls (test code = 5811-5) 1.025 1.010-1.02 5 [facility] pH measurement by automated test giavx0335-55-77 18:10:00* Test Item Value Reference Range Interpretation Comments Urine pH (test code = 38934-9) 6 5-7 [facility] leukocyte esterase detection by bnlmicyo2684-32-62 18:10:00* Test Item Value Reference Range Interpretation Comments Urine Leukocyte Esterase (test code = 5799-2) 2+ NEGATIVE [facility] nitrite dokvwtjws0435-14-24 18:10:00* Test Item Value Reference Range Interpretation Comments Urine Nitrite (test code = 00408-1) NEGATIVE NEGATIVE [facility] protein measurement by test strip (mass/volume)2020-03-08 18:10:00* Test Item Value Reference Range Interpretation Comments Urine Protein (test code = 5804-0) 1+ NEGATIVE [facility] glucose mkhmpelnp8442-89-87 18:10:00* Test Item Value Reference Range Interpretation Comments Urine Glucose (UA) (test code = 2349-9) NEGATIVE NEGATIVE [facility] Hospital[facility] ketones detection by automated test vtxgp9761-30-96 18:10:00* Test Item Value Reference Range Interpretation Comments Urine Ketones (test code = 96253-7) NEGATIVE NEGATIVE [facility] urobilinogen measurement by test strip (mass/volume)2020-03-08 18:10:00* Test Item Value Reference Range Interpretation Comments Urine Urobilinogen (test code = 19961-5) 0.2 0.2-1 [facility] total bilirubin measurement (mass/volume)2020-03-08 18:10:00* Test Item Value Reference Range Interpretation Comments Urine Bilirubin (test code = 1978-6) NEGATIVE NEGATIVE [facility] HospitalU[facility] erythrocytes ohginnapi7174-83-32 18:10:00* Test Item Value Reference Range Interpretation Comments Urine Blood (test code = 09651-8) 3+ NEGATIVE [facility] HospitalAutomated urine sediment leukocyte count by microscopy (number/high power field)2020-03-08 18:10:00* Test Item Value Reference Range Interpretation Comments Urine WBC (test code = 5821-4) >50 0-5 [facility] HospitalErythrocytes detection in urine sediment by light brigjvafaq6976-35-61 18:10:00* Test Item Value Reference Range Interpretation Comments Urine RBC (test code = 18986-5) 11-20 0-5 [facility] HospitalBacteria detection in urine sediment by light xvovhdhqdz5876-71-05 18:10:00* Test Item Value Reference Range Interpretation Comments Urine Bacteria (test code = 91850-2) MANY NONE [facility] HospitalEpithelial cells detection in urine sediment by light stnwazaudt8744-49-15 18:10:00* Test Item Value Reference Range Interpretation Comments Urine Epithelial Cells (test code = 03219-2) NONE NONE [facility] HospitalActivated partial thromboplastin time (aPTT) in platelet poor plasma by coagulation utgfy9731-88-22 17:25:00* Test Item Value Reference Range Interpretation Comments Activated Partial Thromboplast Time (test code = 81553-2) 40.1 23.8-35.5 [facility] Hospitalerum or plasma creatine kinase measurement (enzymatic activity/volume)2020-03-08 17:25:00* Test Item Value Reference Range Interpretation Comments Creatine Kinase (test code = 2157-6) 30 29-168 [facility] Hospitalerum or plasma creatine kinase MB measurement (mass/volume)2020-03-08 17:25:00* Test Item Value Reference Range Interpretation Comments Creatine Kinase MB (test code = 55155-5) 1.00 0-5.0 [facility] HospitalTroponin I measurement by highly sensitive enzyme ldfuyyceqjb7187-19-37 17:25:00* Test Item Value Reference Range Interpretation Comments Troponin I (test code = 96767-8) 0.012 0-0.300 [facility] HospitalActivated partial thromboplastin time (aPTT) in platelet poor plasma by coagulation wnhzg5830-36-92 17:25:00* Test Item Value Reference Range Interpretation Comments Activated Partial Thromboplast Time (test code = 64672-9) 40.1 23.8-35.5 [facility] HospitalBlood bhtqcrg1690-80-85 15:38:00* Test Item Value Reference Range Interpretation Comments Blood Culture (test code = 10669447) NO GROWTH AFTER 24 HOURS [facility] HospitalBlood yjiunyq4512-65-91 15:38:00* Test Item Value Reference Range Interpretation Comments Blood Culture (test code = 96503171) NO GROWTH AFTER 5 DAYS, [facility] [id number] 14:43:00 [facility] [address] [address] Patient Name: ASHOK LOCKE MR #: [id number] : 1930 Age/Sex: 89/F Req #: [id number] Adm Physician: FRAN CARUSO MD Ordered by: FRAN CARUSO MD Report #: [id number] Location: MED/SURG Room/Bed: [facility] Procedure: [id number] CT/CT BRAIN WO Exam Date: 10/01/19 Exam Time: 1426 REPORT STATUS: Signed Examination: CT head without contrast Clinical Indication: Confusion. Technique: Transa xial noncontrast images from the skull base through the vertex were obtained. Sagittal and coronal reformatted images were done. Dose modulation, iterative reconstruction, and/or weight based adjustment of the mA/kV was utilized to re duce the radiation dose to as low as reasonably achievable. Comparison: PET /CT performed November 15, 2016. Findings: Scalp: No abnormalities. Bones: Intact. No fractures. No blastic or lytic lesions. Brain sulci: Mi ld volume loss for age for patient's age. Ventricles: Normal in size and confi guration. No hydrocephalus. . Extra-axial space: No abnormalities. Parenchyma: There are mild confluent areas of low-attenuation within subcor tical and periventricular white matter, nonspecific, but could represent micro vascular ischemic disease. Chronic lacunar infarcts are identified in the bi lateral subinsular cortices and bilateral thalami. Chronic cortical based in farct is again demonstrated the inferior right frontal gyrus. No masses, hem orrhage, or acute or chronic cortical based vascular insults. Suprasellar r egion: No abnormalities. Craniocervical junction: The foramen magnum is patent . No Chiari one malformation. Incidental findings: Atherosclerotic ca lcification of the cavernous and supraclinoid internal carotid arteries. Impression: 1. No new or acute intracranial abnormality when compared to p rior head CT performed November 15, 2016 2. Unchanged moderate chronic m icrovascular ischemic change. 3. Unchanged chronic infarct, as above. 4. Unchanged chronic vascular insult of the right inferior frontal gyrus. 5. Unchanged mild volume loss for age. Signed by: Tulio Madsen on 10/01/2019 2:47 PM Dictated By: ARTEM GALVAN MD Electr onically Signed By: ARTEM GALVAN MD on 10/01/197 Transcribed By : REGINALD on 10/01/191446 COPY TO: FRAN CARUSO MD Prothrombin [id number] 05:56:00* Test Item Value Reference Range Interpretation Comments Prothrombin Time (test code = 5902-2) 19.9 11.9-14.5 H [facility] HospitalProthromb Time International Ratio 2019-10-01 05:56:00* Test Item Value Reference Range Interpretation Comments Prothromb Time International Ratio (test code = 6301-6) 1.62 Oral Anticoagulant Therapy INR Values:1. Low Intensity Therapy 1.5 - 2.02 . Moderate Intensity Therapy 2.0 - 3.03. High Intensity Therapy(1) 2.5 - 3. 54. High Intensity Therapy(2) 3.0 - 4.05. Panic Value INR > 5.0 [facility] Hrajh5022-61-52 06:45:00* Test Item Value Reference Range Interpretation Comments Sodium Level (test code = 2951-2) 142 136-145 [facility] HospitalPotassium Ocsil2402-45-31 06:45:00* Test Item Value Reference Range Interpretation Comments Potassium Level (test code = 2823-3) 3.5 3.5-5.1 [facility] HospitalChloride Xhczt0000-54-03 06:45:00* Test Item Value Reference Range Interpretation Comments Chloride Level (test code = 2075-0) 107 98-107 [facility] HospitalCarbon Dioxide Nebtn5100-54-24 06:45:00* Test Item Value Reference Range Interpretation Comments Carbon Dioxide Level (test code = 2028-9) 24 22-29 [facility] HospitalAnion Nkl2420-05-99 06:45:00* Test Item Value Reference Range Interpretation Comments Anion Gap (test code = 11636-9) 14.5 8-16 [facility] HospitalBlood Urea Nbisddpf1912-59-33 06:45:00* Test Item Value Reference Range Interpretation Comments Blood Urea Nitrogen (test code = 3094-0) 15 7-26 [facility] HospitalCreatinine2020-01-09 06:45:00* Test Item Value Reference Range Interpretation Comments Creatinine (test code = 2160-0) 0.55 0.57-1.11 L [facility] HospitalBUN/Creatinine Plyug9362-13-88 06:45:00* Test Item Value Reference Range Interpretation Comments BUN/Creatinine Ratio (test code = 3097-3) 27 6-25 H [facility] HospitalEstimat Glomerular Filtration Rate 2019-09-30 06:45:00* Test Item Value Reference Range Interpretation Comments Estimat Glomerular Filtration Rate (test code = 874844185) > 60 >60 Ranges were taken from the National Kidney Disease Education Program and the [facility] literature.Reference ranges:60 or greater: Vompax63-23 ( for 3 consecutive months): Chronic kidney disease 15 or less: Kidney failureEl [facility] Children's HospitalGlucose Vlhaj1349-34-85 06:45:00* Test Item Value Reference Range Interpretation Comments Glucose Level (test code = FLR2977) 97 74-118 [facility] HospitalCalcium Entkm5790-92-40 06:45:00* Test Item Value Reference Range Interpretation Comments Calcium Level (test code = 05738-4) 8.7 8.4-10.2 [facility] HospitalWhite Blood Xnfqf5508-20-29 06:09:00* Test Item Value Reference Range Interpretation Comments White Blood Count (test code = 6690-2) 7.83 4.8-10.8 [facility] HospitalRed Blood Vcglr9899-50-39 06:09:00* Test Item Value Reference Range Interpretation Comments Red Blood Count (test code = 789-8) 4.09 3.6-5.1 [facility] HospitalHemoglobin2020-01-09 06:09:00* Test Item Value Reference Range Interpretation Comments Hemoglobin (test code = 57510-2) 11.2 12.0-16.0 L [facility] HospitalHematocrit2020-01-09 06:09:00* Test Item Value Reference Range Interpretation Comments Hematocrit (test code = 4544-3) 36.9 34.2-44.1 [facility] HospitalMean Corpuscular Skutuf9644-19-15 06:09:00* Test Item Value Reference Range Interpretation Comments Mean Corpuscular Volume (test code = 787-2) 90.2 81-99 [facility] HospitalMean Corpuscular Djmmripweo4873-97-06 06:09:00* Test Item Value Reference Range Interpretation Comments Mean Corpuscular Hemoglobin (test code = 785-6) 27.4 28-32 L [facility] HospitalMean Corpuscular Hemoglobin Concent 2019-09-30 06:09:00* Test Item Value Reference Range Interpretation Comments Mean Corpuscular Hemoglobin Concent (test code = 786-4) 30.4 31-35 L [facility] HospitalRed Cell Distribution Ebvqn2488-82-02 06:09:00* Test Item Value Reference Range Interpretation Comments Red Cell Distribution Width (test code = 51662-9) 17.1 11.7 -14.4 H [facility] HospitalPlatelet Qtjfm3129-44-16 06:09:00* Test Item Value Reference Range Interpretation Comments Platelet Count (test code = 777-3) 352 140-360 [facility] HospitalNeutrophils (%) (Auto)2019-09-30 06:09:00 * Test Item Value Reference Range Interpretation Comments Neutrophils (%) (Auto) (test code = 37074-8) 77.0 38.7-80.0 [facility] HospitalLymphocytes (%) (Auto)2019-09-30 06:09:00 * Test Item Value Reference Range Interpretation Comments Lymphocytes (%) (Auto) (test code = 736-9) 7.9 18.0-39.1 L [facility] HospitalMonocytes (%) (Auto)2019-09-30 06:09:00* Test Item Value Reference Range Interpretation Comments Monocytes (%) (Auto) (test code = 5905-5) 9.7 4.4-11.3 [facility] HospitalEosinophils (%) (Auto)2019-09-30 06:09:00 * Test Item Value Reference Range Interpretation Comments Eosinophils (%) (Auto) (test code = 713-8) 4.1 0.0-6.0 [facility] HospitalBasophils (%) (Auto)2019-09-30 06:09:00* Test Item Value Reference Range Interpretation Comments Basophils (%) (Auto) (test code = 706-2) 0.8 0.0-1.0 [facility] HospitalIM GRANULOCYTES %2019-09-30 06:09:00* Test Item Value Reference Range Interpretation Comments IM GRANULOCYTES % (test code = IM GRANULOCYTES %) 0.5 0.0- 1.0 [facility] HospitalNeutrophils # (Auto)2019-09-30 06:09:00* Test Item Value Reference Range Interpretation Comments Neutrophils # (Auto) (test code = 751-8) 6.0 2.1-6.9 [facility] HospitalLymphocytes # (Auto)2019-09-30 06:09:00* Test Item Value Reference Range Interpretation Comments Lymphocytes # (Auto) (test code = 08558-2) 0.6 1.0-3.2 L [facility] HospitalMonocytes # (Auto)2019-09-30 06:09:00* Test Item Value Reference Range Interpretation Comments Monocytes # (Auto) (test code = 742-7) 0.8 0.2-0.8 [facility] HospitalEosinophils # (Auto)2019-09-30 06:09:00* Test Item Value Reference Range Interpretation Comments Eosinophils # (Auto) (test code = 711-2) 0.3 0.0-0.4 [facility] HospitalBasophils # (Auto)2019-09-30 06:09:00* Test Item Value Reference Range Interpretation Comments Basophils # (Auto) (test code = 704-7) 0.1 0.0-0.1 [facility] HospitalAbsolute Immature Granulocyte (auto 2019-09-30 06:09:00* Test Item Value Reference Range Interpretation Comments Absolute Immature Granulocyte (auto (maurice t code = Absolute Immature Granulocyte (auto) 0.04 0-0.1 [facility] HospitalActivated Partial Thromboplast Time 2019-09-29 06:14:00* Test Item Value Reference Range Interpretation Comments Activated Partial Thromboplast Time (test code = 60342-6) 63.4 23.8-35.5 H [facility] HospitalUrine [id number] 21:33:00* Test Item Value Reference Range Interpretation Comments Urine WBC (test code = 5821-4) NONE 0-5 [facility] HospitalUrine [id number] 21:33:00* Test Item Value Reference Range Interpretation Comments Urine RBC (test code = 25472-1) 0-5 0-5 [facility] HospitalUrine Xmkamxef2398-30-01 21:33:00* Test Item Value Reference Range Interpretation Comments Urine Bacteria (test code = 25023-5) NONE NONE [facility] HospitalUrine Epithelial Pnwuq8227-42-99 21:33:00 * Test Item Value Reference Range Interpretation Comments Urine Epithelial Cells (test code = 14959-8) RARE NONE [facility] HospitalUrine Avzlq5156-67-40 21:02:00* Test Item Value Reference Range Interpretation Comments Urine Color (test code = 5778-6) YELLOW YELLOW [facility] HospitalUrine Glllero8651-77-06 21:02:00* Test Item Value Reference Range Interpretation Comments Urine Clarity (test code = 00156-1) SL CLOUDY CLEAR [facility] HospitalUrine Specific Athyrxr4154-42-25 21:02:00 * Test Item Value Reference Range Interpretation Comments Urine Specific Ralls (test code = 5811-5) 1.025 1.010-1.02 5 [facility] HospitalUrine qC5708-33-40 21:02:00* Test Item Value Reference Range Interpretation Comments Urine pH (test code = 18348-9) 6 5-7 [facility] HospitalUrine Leukocyte [place]ille5544-88-65 21:02:00* Test Item Value Reference Range Interpretation Comments Urine Leukocyte Esterase (test code = 82833-4) NEGATIVE NEGATIV E [facility] HospitalUrine Ioteoya7660-49-22 21:02:00* Test Item Value Reference Range Interpretation Comments Urine Nitrite (test code = 44753-8) NEGATIVE NEGATIVE [facility] HospitalUrine Szotcjv0742-66-40 21:02:00* Test Item Value Reference Range Interpretation Comments Urine Protein (test code = 32557-8) NEGATIVE NEGATIVE [facility] HospitalUrine Glucose (UA)2019-09-28 21:02:00* Test Item Value Reference Range Interpretation Comments Urine Glucose (UA) (test code = 74856-5) NEGATIVE NEGATIVE [facility] HospitalUrine Antuiqx4597-57-78 21:02:00* Test Item Value Reference Range Interpretation Comments Urine Ketones (test code = 63519-5) NEGATIVE NEGATIVE [facility] Vkyscahqcdmx1975-69-59 21:02:00* Test Item Value Reference Range Interpretation Comments Urine Urobilinogen (test code = 25075-5) 0.2 0.2-1 [facility] HospitalUrine Vqvegwptq8190-63-44 21:02:00* Test Item Value Reference Range Interpretation Comments Urine Bilirubin (test code = 1977-8) NEGATIVE NEGATIVE [facility] HospitalUrine Jebil9574-16-85 21:02:00* Test Item Value Reference Range Interpretation Comments Urine Blood (test code = 66129-6) TRACE NEGATIVE [facility] HospitalHUMERUS RIGHT 2+DNARS2144-74-78 19:14:00 [facility] [address] [address] Patient Name: ASHOK LOCKE MR #: [id number] : [birth year] Age/Sex: 89/F Req #: [id number] Adm Physician: FRAN CARUSO MD Ordered by: ANDRIA PEDRAZA MD Report #: [id number] Location: [facility] Room/Bed: [place] [address] Procedure: [id number] DX /HUMERUS RIGHT 2+VIEWS Exam Date: 09/28/19 Exam Time : 1854 REPORT STATUS: Signed HUM ERUS RIGHT 2+VIEWS - 2 views HISTORY: Fall COMPARISON: None available. FINDINGS: See impression. IMPRESSION: Mildly displaced fra cture of the right humeral neck with associated mild soft tissue swelling. Signed by: Dr. Kaity Love MD on 09/28/2019 7:15 PM Dictated By: KAITY LOVE MD 14 Transc ribed By: REGINALD on 09/28/191914 COPY TO: ANDRIA PEDRAZA MD Total Ympobkiyv6143-98-16 18:54:00* Test Item Value Reference Range Interpretation Comments Total Bilirubin (test code = 1974-2) 1.5 0.2-1.2 H [facility] HospitalAspartate Amino Transf (AST/SGOT) 2019-09-28 18:54:00* Test Item Value Reference Range Interpretation Comments Aspartate Amino Transf (AST/SGOT) (test code = Aspartate Amino Transf (AST/SGOT)) 19 5-34 [facility] HospitalAlanine Aminotransferase (ALT/SGPT) 2019-09-28 18:54:00* Test Item Value Reference Range Interpretation Comments Alanine Aminotransferase (ALT/SGPT) (test code = 1742-6) 14 0-55 [facility] HospitalTotal Nuhniyu1470-60-43 18:54:00* Test Item Value Reference Range Interpretation Comments Total Protein (test code = 2885-2) 7.2 6.5-8.1 [facility] HospitalAlbumin2020-01-07 18:54:00* Test Item Value Reference Range Interpretation Comments Albumin (test code = 1751-7) 3.2 3.5-5.0 L [facility] HospitalGlobulin2020-01-07 18:54:00* Test Item Value Reference Range Interpretation Comments Globulin (test code = 75676-6) 4.0 2.3-3.5 H [facility] HospitalAlbumin/Globulin Uscln0524-14-82 18:54:00 * Test Item Value Reference Range Interpretation Comments Albumin/Globulin Ratio (test code = 1759-0) 0.8 0.8-2.0 [facility] HospitalAlkaline Ptvtchgmnbj4668-76-81 18:54:00* Test Item Value Reference Range Interpretation Comments Alkaline Phosphatase (test code = 6768-6) 123 40-150 [facility] HospitalPROTHROMBIN SLQZ4532-36-11 09:23:00* Test Item Value Reference Range Interpretation Comments PROTHROMBIN TIME PATIENT (test code = PTP) 23.4 seconds 9.0-14.0 H INTERNATIONAL NORMAL RATIO (test code = INR) 2.0 0.8-1.2 H The therapeutic range for oral anticoagulant therapy formost indications is an international normalized ratio (INR)of between 2.0 and 3.0. The recommended therapeutic INRrange for various clinical situations is listed below: Clinical Situation INR range Pulmonary e mbolism treatment (2.0-3.0)Venous thrombosis treatmentVenous thrombosis prophylaxis (high risk surgery)Prevention of systemic embolism from: Acute myocardial infarction Valvular heart disease Atrial fibrillation Mechanical prosthetic heart valves (2.5-3.5) IS PATIENT ON ANTICOAGULANTS? YLIST ANTICOAGULANTS COUMADINPROTHROMBIN TIME 2019-04-08 04:25:00* Test Item Value Reference Range Interpretation Comments PROTHROMBIN TIME PATIENT (test code = PTP) 30.4 seconds 9.0-14.0 H INTERNATIONAL NORMAL RATIO (test code = INR) 2.6 0.8-1.2 H The therapeutic range for oral anticoagulant therapy formost indications is an international normalized ratio (INR)of between 2.0 and 3.0. The recommended therapeutic INRrange for various clinical situations is listed below: Clinical Situation INR range Pulmonary e mbolism treatment (2.0-3.0)Venous thrombosis treatmentVenous thrombosis prophylaxis (high risk surgery)Prevention of systemic embolism from: Acute myocardial infarction Valvular heart disease Atrial fibrillation Mechanical prosthetic heart valves (2.5-3.5) IS PATIENT ON ANTICOAGULANTS? YLIST ANTICOAGULANTS COUMADINPROTHROMBIN TIME 2019-04-07 05:46:00* Test Item Value Reference Range Interpretation Comments PROTHROMBIN TIME PATIENT (test code = PTP) 30.9 seconds 9.0-14.0 H INTERNATIONAL NORMAL RATIO (test code = INR) 2.6 0.8-1.2 H The therapeutic range for oral anticoagulant therapy formost indications is an international normalized ratio (INR)of between 2.0 and 3.0. The recommended therapeutic INRrange for various clinical situations is listed below: Clinical Situation INR range Pulmonary e mbolism treatment (2.0-3.0)Venous thrombosis treatmentVenous thrombosis prophylaxis (high risk surgery)Prevention of systemic embolism from: Acute myocardial infarction Valvular heart disease Atrial fibrillation Mechanical prosthetic heart valves (2.5-3.5) IS PATIENT ON ANTICOAGULANTS? YLIST ANTICOAGULANTS MCPHTHDROMEGOC5385-72-85 07:25:00* Test Item Value Reference Range Interpretation Comments GLUBED (test code = GLUBED) 87 mg/dL 74-106 N Performed by certified polishing machine operator at [facility] PROTHROMBIN [id number] 05:58:00* Test Item Value Reference Range Interpretation Comments PROTHROMBIN TIME PATIENT (test code = PTP) 28.5 seconds 9.0-14.0 H INTERNATIONAL NORMAL RATIO (test code = INR) 2.4 0.8-1.2 H The therapeutic range for oral anticoagulant therapy formost indications is an international normalized ratio (INR)of between 2.0 and 3.0. The recommended therapeutic INRrange for various clinical situations is listed below: Clinical Situation INR range Pulmonary e mbolism treatment (2.0-3.0)Venous thrombosis treatmentVenous thrombosis prophylaxis (high risk surgery)Prevention of systemic embolism from: Acute myocardial infarction Valvular heart disease Atrial fibrillation Mechanical prosthetic heart valves (2.5-3.5) IS PATIENT ON ANTICOAGULANTS? YLIST ANTICOAGULANTS COUMADINHEMOGLOBIN 2019-04-06 05:45:00* Test Item Value Reference Range Interpretation Comments HEMOGLOBIN (test code = HGB) 12.8 gram/dL 11.5-15.5 N PROTHROMBIN [id number] 06:13:00* Test Item Value Reference Range Interpretation Comments PROTHROMBIN TIME PATIENT (test code = PTP) 27.5 seconds 9.0-14.0 H INTERNATIONAL NORMAL RATIO (test code = INR) 2.3 0.8-1.2 H The therapeutic range for oral anticoagulant therapy formost indications is an international normalized ratio (INR)of between 2.0 and 3.0. The recommended therapeutic INRrange for various clinical situations is listed below: Clinical Situation INR range Pulmonary e mbolism treatment (2.0-3.0)Venous thrombosis treatmentVenous thrombosis prophylaxis (high risk surgery)Prevention of systemic embolism from: Acute myocardial infarction Valvular heart disease Atrial fibrillation Mechanical prosthetic heart valves (2.5-3.5) IS PATIENT ON ANTICOAGULANTS? YLIST ANTICOAGULANTS COUMADINPROTHROMBIN TIME 2019-04-04 05:53:00* Test Item Value Reference Range Interpretation Comments PROTHROMBIN TIME PATIENT (test code = PTP) 24.5 seconds 9.0-14.0 H INTERNATIONAL NORMAL RATIO (test code = INR) 2.1 0.8-1.2 H The therapeutic range for oral anticoagulant therapy formost indications is an international normalized ratio (INR)of between 2.0 and 3.0. The recommended therapeutic INRrange for various clinical situations is listed below: Clinical Situation INR range Pulmonary e mbolism treatment (2.0-3.0)Venous thrombosis treatmentVenous thrombosis prophylaxis (high risk surgery)Prevention of systemic embolism from: Acute myocardial infarction Valvular heart disease Atrial fibrillation Mechanical prosthetic heart valves (2.5-3.5) IS PATIENT ON ANTICOAGULANTS? YLIST ANTICOAGULANTS COUMADIN- XR ANKLE 2 VIEWS [id number] 13:25:00 FAX: Fran Medina MD [phone] [place]: St: ADM FAX: Jose F Goins Fo Name: ASHOK LOCKE [facility] : 1930 Age/S: 88/F [address] [facility] Unit #: [id number] Loc: V.[address] [place] [address] Phys: Jose F Bedolla DO Acct: [id number] Dis Date: Status: ADM IN PHONE #: [phone] Exam Date: 04/03/2019 1200 FAX #: [phone] Reason: pain EXAMS: CPT CODE: [id number] XR ANKLE [address] [place] [address] CLINICAL HISTORY: pain TECHNIQUE: 2 views of the left ankle COMPARISON: None FINDINGS: Bones: No acute fracture or dislocation. Bony trabecular pattern is unremarkable. No cortical destruction or periosteal reaction. Joints: Joint spaces are preserved. No joint effusion. Soft tissues: No soft tissue gas or radiopaque foreign body is detected. IMPRESSION: Negative examination of the left ankle at 1325 Reported and signed by: Shine Thompson MD CC: Fran Caruso; Jose F Bedolla DO Technologist: Rashard Mansfield RT(R) [facility] Date/Time/By: 04/03/2019 (1870) : By: [email or web address] Orig Print D/T: S: 04/03/2019 (1550) PAGE 1 Signed Report - XR SHOULDER 2 + V [id number] 13:01:00 FAX: Fran Medina MD [phone] [place]: St: ADM FAX: Jose F Goins Fo Name: ASHOK LOCKE [facility] : 1930 Age/S: 88/F [address] [facility] Unit #: [id number] Loc: V.[address] [place] [address] Phys: Jose F Bedolla Acct: [id number] Dis Date: Status: ADM IN PHONE #: [phone] Exam Date: 04/03/2019 1200 FAX #: [phone] Reason: pain EXAMS: CPT CODE: [id number] XR SHOULDER 2 + V [place] [address] HISTORY: pain TECHNIQUE: Internal/external rotation AP and scapular Y-views of the right shoulder. FINDINGS: No acute fracture. Glenohumeral and acromioclavicular joints are not dislocated. Articulating surfaces appear pres erved. Regional soft tissues are unremarkable. Visu alized thorax is within normal limits. IMPRESSIO N: Negative radiographic examination of the right shoulder. Electron ically Signed by Shine Thompson MD on 04/03/2019 at 1301 Re ported and signed by: Shine Thompson MD CC: Fran Caruso; Amelia Bedolla DO Technologist: Rashard Mansfield RT(R) Trnscrd Date/Time/By: 04/03/2019 (7742) : By: [email or web address] Orig Print D/T: S: 04/03/2019 (4134) PAGE 1 Signed Report PROTHROMBIN TIME 2019-04-03 05:39:00* Test Item Value Reference Range Interpretation Comments PROTHROMBIN TIME PATIENT (test code = PTP) 22.9 seconds 9.0-14.0 H INTERNATIONAL NORMAL RATIO (test code = INR) 1.9 0.8-1.2 H The therapeutic range for oral anticoagulant therapy formost indications is an international normalized ratio (INR)of between 2.0 and 3.0. The recommended therapeutic INRrange for various clinical situations is listed below: Clinical Situation INR range Pulmonary e mbolism treatment (2.0-3.0)Venous thrombosis treatmentVenous thrombosis prophylaxis (high risk surgery)Prevention of systemic embolism from: Acute myocardial infarction Valvular heart disease Atrial fibrillation Mechanical prosthetic heart valves (2.5-3.5) IS PATIENT ON ANTICOAGULANTS? YLIST ANTICOAGULANTS COUMADINPROTHROMBIN TIME 2019-04-02 06:27:00* Test Item Value Reference Range Interpretation Comments PROTHROMBIN TIME PATIENT (test code = PTP) 20.6 seconds 9.0-14.0 H INTERNATIONAL NORMAL RATIO (test code = INR) 1.7 0.8-1.2 H The therapeutic range for oral anticoagulant therapy formost indications is an international normalized ratio (INR)of between 2.0 and 3.0. The recommended therapeutic INRrange for various clinical situations is listed below: Clinical Situation INR range Pulmonary e mbolism treatment (2.0-3.0)Venous thrombosis treatmentVenous thrombosis prophylaxis (high risk surgery)Prevention of systemic embolism from: Acute myocardial infarction Valvular heart disease Atrial fibrillation Mechanical prosthetic heart valves (2.5-3.5) IS PATIENT ON ANTICOAGULANTS? YLIST ANTICOAGULANTS COUMADINPROTHROMBIN TIME 2019-04-01 06:13:00* Test Item Value Reference Range Interpretation Comments PROTHROMBIN TIME PATIENT (test code = PTP) 22.8 seconds 9.0-14.0 H INTERNATIONAL NORMAL RATIO (test code = INR) 1.9 0.8-1.2 H The therapeutic range for oral anticoagulant therapy formost indications is an international normalized ratio (INR)of between 2.0 and 3.0. The recommended therapeutic INRrange for various clinical situations is listed below: Clinical Situation INR range Pulmonary e mbolism treatment (2.0-3.0)Venous thrombosis treatmentVenous thrombosis prophylaxis (high risk surgery)Prevention of systemic embolism from: Acute myocardial infarction Valvular heart disease Atrial fibrillation Mechanical prosthetic heart valves (2.5-3.5) IS PATIENT ON ANTICOAGULANTS? YLIST ANTICOAGULANTS [id number] 10:56:00* Test Item Value Reference Range Interpretation Comments GLUBED (test code = GLUBED) TEST NOT PERFORMED mg/dL 74-106 Test performed as P.O.C. by nursing staff.Performed by certified polishing machine [facility]Previously reported result: 16 mg/dLEdited by: JORGE LUISMFLatosha on 03/31/19:209188 1055: GLUBED previously reported as: 16 *L mg/dL Test performed as P.O.C. by nursing staff. Performed by certified polishing machine operator at [facility] Notified Nurse~ PROTHROMBIN [id number] 07:45:00* Test Item Value Reference Range Interpretation Comments PROTHROMBIN TIME PATIENT (test code = PTP) 23.7 seconds 9.0-14.0 H INTERNATIONAL NORMAL RATIO (test code = INR) 2.0 0.8-1.2 H The therapeutic range for oral anticoagulant therapy formost indications is an international normalized ratio (INR)of between 2.0 and 3.0. The recommended therapeutic INRrange for various clinical situations is listed below: Clinical Situation INR range Pulmonary e mbolism treatment (2.0-3.0)Venous thrombosis treatmentVenous thrombosis prophylaxis (high risk surgery)Prevention of systemic embolism from: Acute myocardial infarction Valvular heart disease Atrial fibrillation Mechanical prosthetic heart valves (2.5-3.5) IS PATIENT ON ANTICOAGULANTS? YLIST ANTICOAGULANTS COUMADIN- XR KNEE 1 OR 2 V [id number] 17:28:00 FAX: Fran Medina MD [phone] [place]: B St: ADM FAX: Jose F Goins Fo Name: ASHOK LOCKE [facility] : 1930 Age/S: 88/F [address] [facility] Unit #: [id number] Loc: V.3088 [place] [address] Phys: Jose F Bedolla [facility] Acct: [id number] Dis Date: Status: ADM IN PHONE #: [phone] Exam Date: 03/30/2019 1649 FAX #: [phone] Reason: knee pain chronic EXAMS: CPT CODE: [id number] XR KNEE 1 OR 2 [place] [id number] REASON FOR EXAM: knee pain chronic EXAM ORDER DATE: 03/30/2019 12:00 AM Ordering Romeo: Jose F Bedolla DO PROCEDURE: - XR KNEE 1 OR 2 V RT FINDINGS: 2 views of the right knee were obtained. The osseous structures are unremarkable in size and shape. Severe narrowing of the medial and lateral compartments with eburnation of the articular surfaces. No evidence of fracture. No evidence of joint effusion. 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 CC: Fran Caruso; Jose F Bedolla DO Technologist: Radha Barrera Trnscrd Date/Time/By: 03/30/2019 (4035) : By: Gary.VTL Orig Print D/T: S: 03/30/2019 (6560) PAGE 1 Signed Report - XR KNEE 1 OR 2 V [id number] 17:28:00 FAX: Fran Medina MD [phone] [place]: St: ADM FAX: Jose F Goins Fo Name: ASHOK LOCKE [facility] : 1930 Age/S: 88/F Cristi Khalilncer [facility] Unit #: [id number] Loc: V.3088 [place] [address] Phys: Jose F Bedolla DO Acct: [id number] Dis Date: Status: ADM IN PHONE #: [phone] Exam Date: 03/30/2019 1649 FAX #: [phone] Reason: knee pain chronic EXAMS: CPT CODE: [id number] XR KNEE 1 OR 2 V RT [id number] REASON FOR EXAM: knee pain chronic EXAM ORDER DATE: 03/30/2019 12:00 AM Ordering Romeo: Jose F Bedolla DO PROCEDURE: - XR KNEE 1 OR 2 V RT FINDINGS: 2 views of the right knee were obtained. The osseous structures are unremarkable in size and shape. Severe narrowing of the medial and lateral compartments with eburnation of the articular surfaces. No evidence of fracture. No evidence of joint effusion. 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 CC: Fran Caruso; Jose F Bedolla DO Technologist: Radha Barrera Trnscrd Date/Time/By: 03/30/2019 (5679) : By: RuiVTL Orig Print D/T: S: 03/30/2019 (7134) PAGE 1 Signed Report - XR KNEE 1 OR 2 V [id number] 17:28:00 FAX: Fran Medina MD [phone] [place]: St: ADM FAX: Jose F Goins Fo Name: CHUCKYASHOK Hermann [facility] : 1930 Age/S: 88/F Cristi [place] Unit #: [id number] Loc: V.3088 [place] [address] Phys: Jose F Bedolla DO Acct: [id number] Dis Date: Status: ADM IN PHONE #: [phone] Exam Date: 03/30/2019 1649 FAX #: [phone] Reason: knee pain chronic EXAMS: CPT CODE: [id number] XR KNEE 1 OR 2 V RT [id number] REASON FOR EXAM: knee pain chronic EXAM ORDER DATE: 03/30/2019 12:00 AM Ordering Romeo: Jose F Bedolla DO PROCEDURE: - XR KNEE 1 OR 2 V RT FINDINGS: 2 views of the right knee were obtained. The osseous structures are unremarkable in size and shape. Severe narrowing of the medial and lateral compartments with eburnation of the articular surfaces. No evidence of fracture. No evidence of joint effusion. 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 CC: Fran Caruso Remington Pek Fong DO Technologist: Radha Barrera Trnscrd Date/Time/By: 03/30/2019 (3276) : By: VeronicaL Orig Print D/T: S: 03/30/2019 (3460) PAGE 1 Signed Report PROTHROMBIN [id number] 05:48:00 * Test Item Value Reference Range Interpretation Comments PROTHROMBIN TIME PATIENT (test code = PTP) 22.7 seconds 9.0-14.0 H INTERNATIONAL NORMAL RATIO (test code = INR) 1.9 0.8-1.2 H The therapeutic range for oral anticoagulant therapy formost indications is an international normalized ratio (INR)of between 2.0 and 3.0. The recommended therapeutic INRrange for various clinical situations is listed below: Clinical Situation INR range Pulmonary e mbolism treatment (2.0-3.0)Venous thrombosis treatmentVenous thrombosis prophylaxis (high risk surgery)Prevention of systemic embolism from: Acute myocardial infarction Valvular heart disease Atrial fibrillation Mechanical prosthetic heart valves (2.5-3.5) IS PATIENT ON ANTICOAGULANTS? YLIST ANTICOAGULANTS [id number] 20:52:00* Test Item Value Reference Range Interpretation Comments GLUBED (test code = GLUBED) 16 mg/dL 74-106 LL Test performed as P.O.C. by nursing staff.Performed by certified polishing machine operator [facility] PROTHROMBIN [id number] 06:55:00* Test Item Value Reference Range Interpretation Comments PROTHROMBIN TIME PATIENT (test code = PTP) 20.1 seconds 9.0-14.0 H INTERNATIONAL NORMAL RATIO (test code = INR) 1.7 0.8-1.2 H The therapeutic range for oral anticoagulant therapy formost indications is an international normalized ratio (INR)of between 2.0 and 3.0. The recommended therapeutic INRrange for various clinical situations is listed below: Clinical Situation INR range Pulmonary e mbolism treatment (2.0-3.0)Venous thrombosis treatmentVenous thrombosis prophylaxis (high risk surgery)Prevention of systemic embolism from: Acute myocardial infarction Valvular heart disease Atrial fibrillation Mechanical prosthetic heart valves (2.5-3.5) IS PATIENT ON ANTICOAGULANTS? YLIST ANTICOAGULANTS COUMADINCOMPREHENSIVE METABOLIC [id number] 07:53:00* Test Item Value Reference Range Interpretation Comments SODIUM (test code = NA) 138 mmol/L 136-145 N POTASSIUM (test code = K) 4.5 mmol/L 3.5-5.1 N CHLORIDE (test code = CL) 108.0 mmol/L 98-107 H CARBON DIOXIDE (test code = CO2) 23.0 mmol/L 21-32 N ANION GAP (test code = GAP) 11.5 10-20 N GLUCOSE (test code = GLU) 90 mg/dL 74-106 N BLOOD UREA NITROGEN (test code = BUN) 13 mg/dL 7-18 N GLOMERULAR FILTRATION RATE (test code = GFR) > 60 mL/min >=60 Estimated GFR by using Modified MDRD formula.Chronic kidney disease is defined as either kidney damageor GFR <60 mL/min/1.73 m2 for >3 months. CREATININE (test code = CREAT) 0.50 mg/dL 0.55-1.02 L Note change in reference range due to change in reagent. BUN/CREATININE RATIO (test code = BUN/CREA) 24.6 10-20 H TOTAL PROTEIN (test code = PROT) 6.3 gram/dL 6.4-8.2 L ALBUMIN (test code = ALB) 2.4 g/dL 3.4-5.0 L GLOBULIN (test code = GLOB) 3.9 gram/dL 2.7-4.2 N ALBUMIN/GLOBULIN RATIO (test code = A/G) 0.6 0.75-1.50 L CALCIUM (test code = CA) 8.8 mg/dL 8.5-10.1 N BILIRUBIN TOTAL (test code = BILT) 0.40 mg/dL 0.0-1.0 N SGOT/AST (test code = AST) 17 IUnit/L 15-37 N SGPT/ALT (test code = ALT) 16 IUnit/L 12-78 N ALKALINE PHOSPHATASE TOTAL (test code = ALKP) 99 IUnit/L 45-117 N Note change in reference range due to change in reagent. COMPREHENSIVE METABOLIC [id number] 07:42:00* Test Item Value Reference Range Interpretation Comments SODIUM (test code = NA) 138 mmol/L 136-145 N POTASSIUM (test code = K) 4.5 mmol/L 3.5-5.1 N CHLORIDE (test code = CL) 108.0 mmol/L 98-107 H CARBON DIOXIDE (test code = CO2) mmol/L 21-32 ANION GAP (test code = GAP) 10-20 GLUCOSE (test code = GLU) mg/dL 74-106 BLOOD UREA NITROGEN (test code = BUN) mg/dL 7-18 GLOMERULAR FILTRATION RATE (test code = GFR) mL/min >=60 CREATININE (test code = CREAT) mg/dL 0.55-1.02 BUN/CREATININE RATIO (test code = BUN/CREA) 10-20 TOTAL PROTEIN (test code = PROT) gram/dL 6.4-8.2 ALBUMIN (test code = ALB) g/dL 3.4-5.0 GLOBULIN (test code = GLOB) gram/dL 2.7-4.2 ALBUMIN/GLOBULIN RATIO (test code = A/G) 0.75-1.50 CALCIUM (test code = CA) mg/dL 8.5-10.1 BILIRUBIN TOTAL (test code = BILT) mg/dL 0.0-1.0 SGOT/AST (test code = AST) IUnit/L 15-37 SGPT/ALT (test code = ALT) IUnit/L 12-78 ALKALINE PHOSPHATASE TOTAL (test code = ALKP) IUnit/L 45-117 PROTHROMBIN [id number] 07:22:00* Test Item Value Reference Range Interpretation Comments PROTHROMBIN TIME PATIENT (test code = PTP) 18.2 seconds 9.0-14.0 H INTERNATIONAL NORMAL RATIO (test code = INR) 1.6 0.8-1.2 H The therapeutic range for oral anticoagulant therapy formost indications is an international normalized ratio (INR)of between 2.0 and 3.0. The recommended therapeutic INRrange for various clinical situations is listed below: Clinical Situation INR range Pulmonary e mbolism treatment (2.0-3.0)Venous thrombosis treatmentVenous thrombosis prophylaxis (high risk surgery)Prevention of systemic embolism from: Acute myocardial infarction Valvular heart disease Atrial fibrillation Mechanical prosthetic heart valves (2.5-3.5) IS PATIENT ON ANTICOAGULANTS? YLIST ANTICOAGULANTS COUMADINCBC W/AUTO DIFF 2019-03-28 07:02:00* Test Item Value Reference Range Interpretation Comments WHITE BLOOD CELL (test code = WBC) 6.0 K/mm3 4.5-12.5 N RED BLOOD CELL (test code = RBC) 4.13 mill/mm3 3.7-5.2 N HEMOGLOBIN (test code = HGB) 12.6 gram/dL 11.5-15.5 N HEMATOCRIT (test code = HCT) 42.5 % 36.0-46.0 N MEAN CELL VOLUME (test code = MCV) 102.9 fL 80-98 H MEAN CELL HGB (test code = MCH) 30.5 picogram 27.0-33.0 N MEAN CELL HGB CONCETRATION (test code = MCHC) 29.6 gram/dL 33.0-36. 0 L RED CELL DISTRIBUTION WIDTH (test code = RDW) 14.9 % 11.6-16. 2 N RED CELL DISTRIBUTION WIDTH SD (test code = RDW-SD) 55.9 fL 37 .0-51.0 H PLATELET COUNT (test code = PLT) 264 K/mm3 150-450 N MEAN PLATELET VOLUME (test code = MPV) 10.6 fL 6.7-11.0 N NEUTROPHIL % (test code = NT%) 68.1 % 39.0-69.0 N IMMATURE GRANULOCYTE % (test code = IG%) 1.0 % 0.0-5.0 N LYMPHOCYTE % (test code = LY%) 14.4 % 25.0-55.0 L MONOCYTE % (test code = MO%) 11.2 % 0.0-10.0 H EOSINOPHIL % (test code = EO%) 4.5 % 0.0-5.0 N BASOPHIL % (test code = BA%) 0.8 % 0.0-1.0 N NUCLEATED RBC % (test code = NRBC%) 0.0 % 0-0 N NEUTROPHIL # (test code = NT#) 4.05 K/mm3 1.8-7.7 N IMMATURE GRANULOCYTE # (test code = IG#) 0.06 x10 3/uL 0-0.03 H LYMPHOCYTE # (test code = LY#) 0.86 K/mm3 1.0-5.0 L MONOCYTE # (test code = MO#) 0.67 K/mm3 0-0.8 N EOSINOPHIL # (test code = EO#) 0.27 K/mm3 0.0-0.5 N BASOPHIL # (test code = BA#) 0.05 K/mm3 0.0-0.2 N NUCLEATED RBC # (test code = NRBC#) 0.00 K/mm3 0.0-0.1 N CBC W/AUTO [id number] 06:58:00* Test Item Value Reference Range Interpretation Comments WHITE BLOOD CELL (test code = WBC) K/mm3 4.5-12.5 RED BLOOD CELL (test code = RBC) mill/mm3 3.7-5.2 HEMOGLOBIN (test code = HGB) 12.6 gram/dL 11.5-15.5 N HEMATOCRIT (test code = HCT) 42.5 % 36.0-46.0 N MEAN CELL VOLUME (test code = MCV) fL 80-98 MEAN CELL HGB (test code = MCH) picogram 27.0-33.0 MEAN CELL HGB CONCETRATION (test code = MCHC) gram/dL 33.0-36. 0 RED CELL DISTRIBUTION WIDTH (test code = RDW) % 11.6-16. 2 RED CELL DISTRIBUTION WIDTH SD (test code = RDW-SD) fL 37 .0-51.0 PLATELET COUNT (test code = PLT) K/mm3 150-450 MEAN PLATELET VOLUME (test code = MPV) fL 6.7-11.0 NEUTROPHIL % (test code = NT%) % 39.0-69.0 IMMATURE GRANULOCYTE % (test code = IG%) % 0.0-5.0 LYMPHOCYTE % (test code = LY%) % 25.0-55.0 MONOCYTE % (test code = MO%) % 0.0-10.0 EOSINOPHIL % (test code = EO%) % 0.0-5.0 BASOPHIL % (test code = BA%) % 0.0-1.0 NEUTROPHIL # (test code = NT#) K/mm3 1.8-7.7 LYMPHOCYTE # (test code = LY#) K/mm3 1.0-5.0 MONOCYTE # (test code = MO#) K/mm3 0-0.8 EOSINOPHIL # (test code = EO#) K/mm3 0.0-0.5 BASOPHIL # (test code = BA#) K/mm3 0.0-0.2 PROTHROMBIN [id number] 07:55:00* Test Item Value Reference Range Interpretation Comments PROTHROMBIN TIME PATIENT (test code = PTP) 15.6 seconds 9.0-14.0 H INTERNATIONAL NORMAL RATIO (test code = INR) 1.3 0.8-1.2 H The therapeutic range for oral anticoagulant therapy formost indications is an international normalized ratio (INR)of between 2.0 and 3.0. The recommended therapeutic INRrange for various clinical situations is listed below: Clinical Situation INR range Pulmonary e mbolism treatment (2.0-3.0)Venous thrombosis treatmentVenous thrombosis prophylaxis (high risk surgery)Prevention of systemic embolism from: Acute myocardial infarction Valvular heart disease Atrial fibrillation Mechanical prosthetic heart valves (2.5-3.5) IS PATIENT ON ANTICOAGULANTS? YLIST ANTICOAGULANTS COUMADINPROTHROMBIN TIME 2019-03-25 08:02:00* Test Item Value Reference Range Interpretation Comments PROTHROMBIN TIME PATIENT (test code = PTP) 14.2 seconds 9.0-14.0 H INTERNATIONAL NORMAL RATIO (test code = INR) 1.2 0.8-1.2 N The therapeutic range for oral anticoagulant therapy formost indications is an international normalized ratio (INR)of between 2.0 and 3.0. The recommended therapeutic INRrange for various clinical situations is listed below: Clinical Situation INR range Pulmonary e mbolism treatment (2.0-3.0)Venous thrombosis treatmentVenous thrombosis prophylaxis (high risk surgery)Prevention of systemic embolism from: Acute myocardial infarction Valvular heart disease Atrial fibrillation Mechanical prosthetic heart valves (2.5-3.5) IS PATIENT ON ANTICOAGULANTS? YLIST ANTICOAGULANTS COUMADINCOMPREHENSIVE METABOLIC [id number] 07:32:00* Test Item Value Reference Range Interpretation Comments SODIUM (test code = NA) 144 mmol/L 136-145 N POTASSIUM (test code = K) 4.6 mmol/L 3.5-5.1 N CHLORIDE (test code = CL) 112.0 mmol/L 98-107 H CARBON DIOXIDE (test code = CO2) 28.0 mmol/L 21-32 N ANION GAP (test code = GAP) 8.6 10-20 L GLUCOSE (test code = GLU) 104 mg/dL 74-106 N BLOOD UREA NITROGEN (test code = BUN) 18 mg/dL 7-18 N GLOMERULAR FILTRATION RATE (test code = GFR) > 60 mL/min >=60 Estimated GFR by using Modified MDRD formula.Chronic kidney disease is defined as either kidney damageor GFR <60 mL/min/1.73 m2 for >3 months. CREATININE (test code = CREAT) 0.60 mg/dL 0.55-1.02 N Note change in reference range due to change in reagent. BUN/CREATININE RATIO (test code = BUN/CREA) 30.0 10-20 H TOTAL PROTEIN (test code = PROT) 6.0 gram/dL 6.4-8.2 L ALBUMIN (test code = ALB) 2.4 g/dL 3.4-5.0 L GLOBULIN (test code = GLOB) 3.6 gram/dL 2.7-4.2 N ALBUMIN/GLOBULIN RATIO (test code = A/G) 0.7 0.75-1.50 L CALCIUM (test code = CA) 9.2 mg/dL 8.5-10.1 N BILIRUBIN TOTAL (test code = BILT) 0.40 mg/dL 0.0-1.0 N SGOT/AST (test code = AST) 17 IUnit/L 15-37 N SGPT/ALT (test code = ALT) 16 IUnit/L 12-78 N ALKALINE PHOSPHATASE TOTAL (test code = ALKP) 92 IUnit/L 45-117 N Note change in reference range due to change in reagent. COMPREHENSIVE METABOLIC [id number] 07:25:00* Test Item Value Reference Range Interpretation Comments SODIUM (test code = NA) 144 mmol/L 136-145 N POTASSIUM (test code = K) 4.6 mmol/L 3.5-5.1 N CHLORIDE (test code = CL) 112.0 mmol/L 98-107 H CARBON DIOXIDE (test code = CO2) mmol/L 21-32 ANION GAP (test code = GAP) 10-20 GLUCOSE (test code = GLU) mg/dL 74-106 BLOOD UREA NITROGEN (test code = BUN) mg/dL 7-18 GLOMERULAR FILTRATION RATE (test code = GFR) mL/min >=60 CREATININE (test code = CREAT) mg/dL 0.55-1.02 BUN/CREATININE RATIO (test code = BUN/CREA) 10-20 TOTAL PROTEIN (test code = PROT) gram/dL 6.4-8.2 ALBUMIN (test code = ALB) g/dL 3.4-5.0 GLOBULIN (test code = GLOB) gram/dL 2.7-4.2 ALBUMIN/GLOBULIN RATIO (test code = A/G) 0.75-1.50 CALCIUM (test code = CA) mg/dL 8.5-10.1 BILIRUBIN TOTAL (test code = BILT) mg/dL 0.0-1.0 SGOT/AST (test code = AST) IUnit/L 15-37 SGPT/ALT (test code = ALT) IUnit/L 12-78 ALKALINE PHOSPHATASE TOTAL (test code = ALKP) IUnit/L 45-117 CBC W/AUTO [id number] 06:50:00* Test Item Value Reference Range Interpretation Comments WHITE BLOOD CELL (test code = WBC) 8.7 K/mm3 4.5-12.5 N RED BLOOD CELL (test code = RBC) 4.06 mill/mm3 3.7-5.2 N HEMOGLOBIN (test code = HGB) 12.3 gram/dL 11.5-15.5 N HEMATOCRIT (test code = HCT) 39.9 % 36.0-46.0 N MEAN CELL VOLUME (test code = MCV) 98.3 fL 80-98 H MEAN CELL HGB (test code = MCH) 30.3 picogram 27.0-33.0 N MEAN CELL HGB CONCETRATION (test code = MCHC) 30.8 gram/dL 33.0-36. 0 L RED CELL DISTRIBUTION WIDTH (test code = RDW) 14.6 % 11.6-16. 2 N RED CELL DISTRIBUTION WIDTH SD (test code = RDW-SD) 52.7 fL 37 .0-51.0 H PLATELET COUNT (test code = PLT) 286 K/mm3 150-450 N MEAN PLATELET VOLUME (test code = MPV) 10.3 fL 6.7-11.0 N NEUTROPHIL % (test code = NT%) 75.8 % 39.0-69.0 H IMMATURE GRANULOCYTE % (test code = IG%) 0.9 % 0.0-5.0 N LYMPHOCYTE % (test code = LY%) 10.1 % 25.0-55.0 L MONOCYTE % (test code = MO%) 10.8 % 0.0-10.0 H EOSINOPHIL % (test code = EO%) 1.9 % 0.0-5.0 N BASOPHIL % (test code = BA%) 0.5 % 0.0-1.0 N NUCLEATED RBC % (test code = NRBC%) 0.0 % 0-0 N NEUTROPHIL # (test code = NT#) 6.61 K/mm3 1.8-7.7 N IMMATURE GRANULOCYTE # (test code = IG#) 0.08 x10 3/uL 0-0.03 H LYMPHOCYTE # (test code = LY#) 0.88 K/mm3 1.0-5.0 L MONOCYTE # (test code = MO#) 0.94 K/mm3 0-0.8 H EOSINOPHIL # (test code = EO#) 0.17 K/mm3 0.0-0.5 N BASOPHIL # (test code = BA#) 0.04 K/mm3 0.0-0.2 N NUCLEATED RBC # (test code = NRBC#) 0.00 K/mm3 0.0-0.1 N CBC W/AUTO [id number] 06:47:00* Test Item Value Reference Range Interpretation Comments WHITE BLOOD CELL (test code = WBC) K/mm3 4.5-12.5 RED BLOOD CELL (test code = RBC) mill/mm3 3.7-5.2 HEMOGLOBIN (test code = HGB) 12.3 gram/dL 11.5-15.5 N HEMATOCRIT (test code = HCT) 39.9 % 36.0-46.0 N MEAN CELL VOLUME (test code = MCV) fL 80-98 MEAN CELL HGB (test code = MCH) picogram 27.0-33.0 MEAN CELL HGB CONCETRATION (test code = MCHC) gram/dL 33.0-36. 0 RED CELL DISTRIBUTION WIDTH (test code = RDW) % 11.6-16. 2 RED CELL DISTRIBUTION WIDTH SD (test code = RDW-SD) fL 37 .0-51.0 PLATELET COUNT (test code = PLT) K/mm3 150-450 MEAN PLATELET VOLUME (test code = MPV) fL 6.7-11.0 NEUTROPHIL % (test code = NT%) % 39.0-69.0 IMMATURE GRANULOCYTE % (test code = IG%) % 0.0-5.0 LYMPHOCYTE % (test code = LY%) % 25.0-55.0 MONOCYTE % (test code = MO%) % 0.0-10.0 EOSINOPHIL % (test code = EO%) % 0.0-5.0 BASOPHIL % (test code = BA%) % 0.0-1.0 NEUTROPHIL # (test code = NT#) K/mm3 1.8-7.7 LYMPHOCYTE # (test code = LY#) K/mm3 1.0-5.0 MONOCYTE # (test code = MO#) K/mm3 0-0.8 EOSINOPHIL # (test code = EO#) K/mm3 0.0-0.5 BASOPHIL # (test code = BA#) K/mm3 0.0-0.2 BASIC METABOLIC [id number] 09:14:00* Test Item Value Reference Range Interpretation Comments SODIUM (test code = NA) 143 mmol/L 136-145 N POTASSIUM (test code = K) 4.6 mmol/L 3.5-5.1 N CHLORIDE (test code = CL) 110.0 mmol/L 98-107 H CARBON DIOXIDE (test code = CO2) 26.0 mmol/L 21-32 N ANION GAP (test code = GAP) 11.6 10-20 N GLUCOSE (test code = GLU) 111 mg/dL 74-106 H BLOOD UREA NITROGEN (test code = BUN) 15 mg/dL 7-18 N GLOMERULAR FILTRATION RATE (test code = GFR) > 60 mL/min >=60 Estimated GFR by using Modified MDRD formula.Chronic kidney disease is defined as either kidney damageor GFR <60 mL/min/1.73 m2 for >3 months. CREATININE (test code = CREAT) 0.40 mg/dL 0.55-1.02 L Note change in reference range due to change in reagent. BUN/CREATININE RATIO (test code = BUN/CREA) 37.5 10-20 H CALCIUM (test code = CA) 8.9 mg/dL 8.5-10.1 N HARD STICK NOTIFIED NURSE MD [facility] 03/24/19 [id number] 2019-03-24 09:08:00* Test Item Value Reference Range Interpretation Comments SODIUM (test code = NA) 143 mmol/L 136-145 N POTASSIUM (test code = K) 4.6 mmol/L 3.5-5.1 N CHLORIDE (test code = CL) 110.0 mmol/L 98-107 H CARBON DIOXIDE (test code = CO2) mmol/L 21-32 ANION GAP (test code = GAP) 10-20 GLUCOSE (test code = GLU) mg/dL 74-106 BLOOD UREA NITROGEN (test code = BUN) mg/dL 7-18 GLOMERULAR FILTRATION RATE (test code = GFR) mL/min >=60 CREATININE (test code = CREAT) mg/dL 0.55-1.02 BUN/CREATININE RATIO (test code = BUN/CREA) 10-20 CALCIUM (test code = CA) mg/dL 8.5-10.1 HARD STICK NOTIFIED NURSE MD [facility] 03/24/19 0702CB W/AUTO [id number] 08:31:00* Test Item Value Reference Range Interpretation Comments WHITE BLOOD CELL (test code = WBC) 9.1 K/mm3 4.5-12.5 N RED BLOOD CELL (test code = RBC) 4.33 mill/mm3 3.7-5.2 N HEMOGLOBIN (test code = HGB) 13.0 gram/dL 11.5-15.5 N HEMATOCRIT (test code = HCT) 42.5 % 36.0-46.0 N MEAN CELL VOLUME (test code = MCV) 98.2 fL 80-98 H MEAN CELL HGB (test code = MCH) 30.0 picogram 27.0-33.0 N MEAN CELL HGB CONCETRATION (test code = MCHC) 30.6 gram/dL 33.0-36. 0 L RED CELL DISTRIBUTION WIDTH (test code = RDW) 14.6 % 11.6-16. 2 N RED CELL DISTRIBUTION WIDTH SD (test code = RDW-SD) 52.4 fL 37 .0-51.0 H PLATELET COUNT (test code = PLT) 279 K/mm3 150-450 N MEAN PLATELET VOLUME (test code = MPV) 10.4 fL 6.7-11.0 N NEUTROPHIL % (test code = NT%) 86.4 % 39.0-69.0 H IMMATURE GRANULOCYTE % (test code = IG%) 0.7 % 0.0-5.0 N LYMPHOCYTE % (test code = LY%) 4.0 % 25.0-55.0 L MONOCYTE % (test code = MO%) 8.7 % 0.0-10.0 N EOSINOPHIL % (test code = EO%) 0.0 % 0.0-5.0 N BASOPHIL % (test code = BA%) 0.2 % 0.0-1.0 N NUCLEATED RBC % (test code = NRBC%) 0.0 % 0-0 N NEUTROPHIL # (test code = NT#) 7.85 K/mm3 1.8-7.7 H IMMATURE GRANULOCYTE # (test code = IG#) 0.06 x10 3/uL 0-0.03 H LYMPHOCYTE # (test code = LY#) 0.36 K/mm3 1.0-5.0 L MONOCYTE # (test code = MO#) 0.79 K/mm3 0-0.8 N EOSINOPHIL # (test code = EO#) 0.00 K/mm3 0.0-0.5 N BASOPHIL # (test code = BA#) 0.02 K/mm3 0.0-0.2 N NUCLEATED RBC # (test code = NRBC#) 0.00 K/mm3 0.0-0.1 N GUALBERTO NOTIFIED NURSE MD KANGAL 03/24/19 0702CBC W/AUTO [id number] 08:25:00* Test Item Value Reference Range Interpretation Comments WHITE BLOOD CELL (test code = WBC) K/mm3 4.5-12.5 RED BLOOD CELL (test code = RBC) mill/mm3 3.7-5.2 HEMOGLOBIN (test code = HGB) 13.0 gram/dL 11.5-15.5 N HEMATOCRIT (test code = HCT) 42.5 % 36.0-46.0 N MEAN CELL VOLUME (test code = MCV) fL 80-98 MEAN CELL HGB (test code = MCH) picogram 27.0-33.0 MEAN CELL HGB CONCETRATION (test code = MCHC) gram/dL 33.0-36. 0 RED CELL DISTRIBUTION WIDTH (test code = RDW) % 11.6-16. 2 RED CELL DISTRIBUTION WIDTH SD (test code = RDW-SD) fL 37 .0-51.0 PLATELET COUNT (test code = PLT) K/mm3 150-450 MEAN PLATELET VOLUME (test code = MPV) fL 6.7-11.0 NEUTROPHIL % (test code = NT%) % 39.0-69.0 IMMATURE GRANULOCYTE % (test code = IG%) % 0.0-5.0 LYMPHOCYTE % (test code = LY%) % 25.0-55.0 MONOCYTE % (test code = MO%) % 0.0-10.0 EOSINOPHIL % (test code = EO%) % 0.0-5.0 BASOPHIL % (test code = BA%) % 0.0-1.0 NEUTROPHIL # (test code = NT#) K/mm3 1.8-7.7 LYMPHOCYTE # (test code = LY#) K/mm3 1.0-5.0 MONOCYTE # (test code = MO#) K/mm3 0-0.8 EOSINOPHIL # (test code = EO#) K/mm3 0.0-0.5 BASOPHIL # (test code = BA#) K/mm3 0.0-0.2 GUALBERTO NOTIFIED NURSE MD KANGAL 03/24/19 0702- XR HIP W/PEL UNI 2+V RT 2019-03-23 16:35:00 FAX: Fran Medina MD [phone] [place]: [address]: ADM FAX: Vinicius Infante [phone] Name: ASHOK LOCKE [facility] : 1930 Age/S: 88/F [address] [facility] Unit #: [id number] Loc: .[address] [place] [address] Phys: Vinicius Tam MD Acct: [id number] Dis Date: Status: ADM IN PHONE #: [phone] Exam Date: 03/23/2019 1271 FAX #: [phone] Reason: S/P HIP PINNING EXAMS: CPT CODE: [id number] XR HIP W/PEL UNI 2+V RT [id number] REASON FOR EXAM: S/P HIP PINNING EXAM ORDER DATE: 03/23/2019 4:04 PM Ordering M.D.: Vinicius Tam MD PROCEDURE: - XR HIP W/PEL UNI 2+V RT FINDINGS: 3 views of the right hip with frontal view of the pelvis were obtained. The osseous structures are unremarkable in size and shape with 3 orthopedic screws extending across the right femoral neck. Minimal cortical disruption in the right femoral neck noted. The joint spaces are maintained. There is normal alignment of the right hip joint IMPRESSION: Unremarkable right hip status post placement of right orthopedic screws at 1497 Reported and signed by: Dale Sahu M.D. CC: Fran Caruso Edward Brooke Technologist: ASAEL Santiago RT(R) Trnscrd Date/Time/By: 2018 (9952) : By: Tahmina Orig Print D/T: S: 03/23/2019 (2023) PAGE 1 Signed Report COMPREHENSIVE METABOLIC [id number] 05:44:00* Test Item Value Reference Range Interpretation Comments SODIUM (test code = NA) 144 mmol/L 136-145 N POTASSIUM (test code = K) 3.3 mmol/L 3.5-5.1 L CHLORIDE (test code = CL) 110.0 mmol/L 98-107 H CARBON DIOXIDE (test code = CO2) 27.0 mmol/L 21-32 N ANION GAP (test code = GAP) 10.3 10-20 N GLUCOSE (test code = GLU) 103 mg/dL 74-106 N BLOOD UREA NITROGEN (test code = BUN) 11 mg/dL 7-18 N GLOMERULAR FILTRATION RATE (test code = GFR) > 60 mL/min >=60 Estimated GFR by using Modified MDRD formula.Chronic kidney disease is defined as either kidney damageor GFR <60 mL/min/1.73 m2 for >3 months. CREATININE (test code = CREAT) 0.40 mg/dL 0.55-1.02 L Note change in reference range due to change in reagent. BUN/CREATININE RATIO (test code = BUN/CREA) 27.5 10-20 H TOTAL PROTEIN (test code = PROT) 6.2 gram/dL 6.4-8.2 L ALBUMIN (test code = ALB) 2.5 g/dL 3.4-5.0 L GLOBULIN (test code = GLOB) 3.7 gram/dL 2.7-4.2 N ALBUMIN/GLOBULIN RATIO (test code = A/G) 0.7 0.75-1.50 L CALCIUM (test code = CA) 8.7 mg/dL 8.5-10.1 N BILIRUBIN TOTAL (test code = BILT) 0.50 mg/dL 0.0-1.0 N SGOT/AST (test code = AST) 12 IUnit/L 15-37 L SGPT/ALT (test code = ALT) 14 IUnit/L 12-78 N ALKALINE PHOSPHATASE TOTAL (test code = ALKP) 81 IUnit/L 45-117 N Note change in reference range due to change in reagent. COMPREHENSIVE METABOLIC [id number] 05:36:00* Test Item Value Reference Range Interpretation Comments SODIUM (test code = NA) 144 mmol/L 136-145 N POTASSIUM (test code = K) 3.3 mmol/L 3.5-5.1 L CHLORIDE (test code = CL) 110.0 mmol/L 98-107 H CARBON DIOXIDE (test code = CO2) mmol/L 21-32 ANION GAP (test code = GAP) 10-20 GLUCOSE (test code = GLU) mg/dL 74-106 BLOOD UREA NITROGEN (test code = BUN) mg/dL 7-18 GLOMERULAR FILTRATION RATE (test code = GFR) mL/min >=60 CREATININE (test code = CREAT) mg/dL 0.55-1.02 BUN/CREATININE RATIO (test code = BUN/CREA) 10-20 TOTAL PROTEIN (test code = PROT) gram/dL 6.4-8.2 ALBUMIN (test code = ALB) g/dL 3.4-5.0 GLOBULIN (test code = GLOB) gram/dL 2.7-4.2 ALBUMIN/GLOBULIN RATIO (test code = A/G) 0.75-1.50 CALCIUM (test code = CA) mg/dL 8.5-10.1 BILIRUBIN TOTAL (test code = BILT) mg/dL 0.0-1.0 SGOT/AST (test code = AST) IUnit/L 15-37 SGPT/ALT (test code = ALT) IUnit/L 12-78 ALKALINE PHOSPHATASE TOTAL (test code = ALKP) IUnit/L 45-117 PROTHROMBIN [id number] 05:32:00* Test Item Value Reference Range Interpretation Comments PROTHROMBIN TIME PATIENT (test code = PTP) 15.5 seconds 9.0-14.0 H INTERNATIONAL NORMAL RATIO (test code = INR) 1.3 0.8-1.2 H The therapeutic range for oral anticoagulant therapy formost indications is an international normalized ratio (INR)of between 2.0 and 3.0. The recommended therapeutic INRrange for various clinical situations is listed below: Clinical Situation INR range Pulmonary e mbolism treatment (2.0-3.0)Venous thrombosis treatmentVenous thrombosis prophylaxis (high risk surgery)Prevention of systemic embolism from: Acute myocardial infarction Valvular heart disease Atrial fibrillation Mechanical prosthetic heart valves (2.5-3.5) IS PATIENT ON ANTICOAGULANTS? YLIST ANTICOAGULANTS COUMADINCBC W/AUTO DIFF 2019-03-23 05:16:00* Test Item Value Reference Range Interpretation Comments WHITE BLOOD CELL (test code = WBC) K/mm3 4.5-12.5 RED BLOOD CELL (test code = RBC) mill/mm3 3.7-5.2 HEMOGLOBIN (test code = HGB) 12.4 gram/dL 11.5-15.5 N HEMATOCRIT (test code = HCT) 39.5 % 36.0-46.0 N MEAN CELL VOLUME (test code = MCV) fL 80-98 MEAN CELL HGB (test code = MCH) picogram 27.0-33.0 MEAN CELL HGB CONCETRATION (test code = MCHC) gram/dL 33.0-36. 0 RED CELL DISTRIBUTION WIDTH (test code = RDW) % 11.6-16. 2 RED CELL DISTRIBUTION WIDTH SD (test code = RDW-SD) fL 37 .0-51.0 PLATELET COUNT (test code = PLT) K/mm3 150-450 MEAN PLATELET VOLUME (test code = MPV) fL 6.7-11.0 NEUTROPHIL % (test code = NT%) % 39.0-69.0 IMMATURE GRANULOCYTE % (test code = IG%) % 0.0-5.0 LYMPHOCYTE % (test code = LY%) % 25.0-55.0 MONOCYTE % (test code = MO%) % 0.0-10.0 EOSINOPHIL % (test code = EO%) % 0.0-5.0 BASOPHIL % (test code = BA%) % 0.0-1.0 NEUTROPHIL # (test code = NT#) K/mm3 1.8-7.7 LYMPHOCYTE # (test code = LY#) K/mm3 1.0-5.0 MONOCYTE # (test code = MO#) K/mm3 0-0.8 EOSINOPHIL # (test code = EO#) K/mm3 0.0-0.5 BASOPHIL # (test code = BA#) K/mm3 0.0-0.2 CBC W/AUTO [id number] 05:16:00* Test Item Value Reference Range Interpretation Comments WHITE BLOOD CELL (test code = WBC) 7.7 K/mm3 4.5-12.5 N RED BLOOD CELL (test code = RBC) 4.10 mill/mm3 3.7-5.2 N HEMOGLOBIN (test code = HGB) 12.4 gram/dL 11.5-15.5 N HEMATOCRIT (test code = HCT) 39.5 % 36.0-46.0 N MEAN CELL VOLUME (test code = MCV) 96.3 fL 80-98 N MEAN CELL HGB (test code = MCH) 30.2 picogram 27.0-33.0 N MEAN CELL HGB CONCETRATION (test code = MCHC) 31.4 gram/dL 33.0-36. 0 L RED CELL DISTRIBUTION WIDTH (test code = RDW) 14.6 % 11.6-16. 2 N RED CELL DISTRIBUTION WIDTH SD (test code = RDW-SD) 51.9 fL 37 .0-51.0 H PLATELET COUNT (test code = PLT) 301 K/mm3 150-450 N MEAN PLATELET VOLUME (test code = MPV) 9.7 fL 6.7-11.0 N NEUTROPHIL % (test code = NT%) 74.6 % 39.0-69.0 H IMMATURE GRANULOCYTE % (test code = IG%) 0.5 % 0.0-5.0 N LYMPHOCYTE % (test code = LY%) 11.4 % 25.0-55.0 L MONOCYTE % (test code = MO%) 10.4 % 0.0-10.0 H EOSINOPHIL % (test code = EO%) 2.2 % 0.0-5.0 N BASOPHIL % (test code = BA%) 0.9 % 0.0-1.0 N NUCLEATED RBC % (test code = NRBC%) 0.0 % 0-0 N NEUTROPHIL # (test code = NT#) 5.74 K/mm3 1.8-7.7 N IMMATURE GRANULOCYTE # (test code = IG#) 0.04 x10 3/uL 0-0.03 H LYMPHOCYTE # (test code = LY#) 0.88 K/mm3 1.0-5.0 L MONOCYTE # (test code = MO#) 0.80 K/mm3 0-0.8 N EOSINOPHIL # (test code = EO#) 0.17 K/mm3 0.0-0.5 N BASOPHIL # (test code = BA#) 0.07 K/mm3 0.0-0.2 N NUCLEATED RBC # (test code = NRBC#) 0.00 K/mm3 0.0-0.1 N PROTHROMBIN [id number] 19:00:00* Test Item Value Reference Range Interpretation Comments PROTHROMBIN TIME PATIENT (test code = PTP) 25.5 seconds 9.0-14.0 H INTERNATIONAL NORMAL RATIO (test code = INR) 2.2 0.8-1.2 H The therapeutic range for oral anticoagulant therapy formost indications is an international normalized ratio (INR)of between 2.0 and 3.0. The recommended therapeutic INRrange for various clinical situations is listed below: Clinical Situation INR range Pulmonary e mbolism treatment (2.0-3.0)Venous thrombosis treatmentVenous thrombosis prophylaxis (high risk surgery)Prevention of systemic embolism from: Acute myocardial infarction Valvular heart disease Atrial fibrillation Mechanical prosthetic heart valves (2.5-3.5) IS PATIENT ON ANTICOAGULANTS? YLIST ANTICOAGULANTS [id number] 12:39:00* Test Item Value Reference Range Interpretation Comments GLUBED (test code = GLUBED) 127 mg/dL 74-106 H Performed by certified polishing machine operator at [facility] CBC W/AUTO [id number] 07:32:00* Test Item Value Reference Range Interpretation Comments WHITE BLOOD CELL (test code = WBC) 7.3 K/mm3 4.5-12.5 N RED BLOOD CELL (test code = RBC) 4.16 mill/mm3 3.7-5.2 N HEMOGLOBIN (test code = HGB) 12.6 gram/dL 11.5-15.5 N HEMATOCRIT (test code = HCT) 40.2 % 36.0-46.0 N MEAN CELL VOLUME (test code = MCV) 96.6 fL 80-98 N MEAN CELL HGB (test code = MCH) 30.3 picogram 27.0-33.0 N MEAN CELL HGB CONCETRATION (test code = MCHC) 31.3 gram/dL 33.0-36. 0 L RED CELL DISTRIBUTION WIDTH (test code = RDW) 14.6 % 11.6-16. 2 N RED CELL DISTRIBUTION WIDTH SD (test code = RDW-SD) 50.8 fL 37 .0-51.0 N PLATELET COUNT (test code = PLT) 315 K/mm3 150-450 RESULT VERIFIED BY REPEAT ANALYSIS MEAN PLATELET VOLUME (test code = MPV) 9.9 fL 6.7-11.0 N NEUTROPHIL % (test code = NT%) 74.3 % 39.0-69.0 H IMMATURE GRANULOCYTE % (test code = IG%) 0.6 % 0.0-5.0 N LYMPHOCYTE % (test code = LY%) 10.9 % 25.0-55.0 L MONOCYTE % (test code = MO%) 11.6 % 0.0-10.0 H EOSINOPHIL % (test code = EO%) 1.9 % 0.0-5.0 N BASOPHIL % (test code = BA%) 0.7 % 0.0-1.0 N NUCLEATED RBC % (test code = NRBC%) 0.0 % 0-0 N NEUTROPHIL # (test code = NT#) 5.39 K/mm3 1.8-7.7 N IMMATURE GRANULOCYTE # (test code = IG#) 0.04 x10 3/uL 0-0.03 H LYMPHOCYTE # (test code = LY#) 0.79 K/mm3 1.0-5.0 L MONOCYTE # (test code = MO#) 0.84 K/mm3 0-0.8 H EOSINOPHIL # (test code = EO#) 0.14 K/mm3 0.0-0.5 N BASOPHIL # (test code = BA#) 0.05 K/mm3 0.0-0.2 N NUCLEATED RBC # (test code = NRBC#) 0.00 K/mm3 0.0-0.1 N MANUAL DIFF REQUIRED (test code = MDIFF) NO PROTHROMBIN [id number] 07:30:00* Test Item Value Reference Range Interpretation Comments PROTHROMBIN TIME PATIENT (test code = PTP) 40.7 seconds 9.0-14.0 H INTERNATIONAL NORMAL RATIO (test code = INR) 3.5 0.8-1.2 H The therapeutic range for oral anticoagulant therapy formost indications is an international normalized ratio (INR)of between 2.0 and 3.0. The recommended therapeutic INRrange for various clinical situations is listed below: Clinical Situation INR range Pulmonary e mbolism treatment (2.0-3.0)Venous thrombosis treatmentVenous thrombosis prophylaxis (high risk surgery)Prevention of systemic embolism from: Acute myocardial infarction Valvular heart disease Atrial fibrillation Mechanical prosthetic heart valves (2.5-3.5) IS PATIENT ON ANTICOAGULANTS? YLIST ANTICOAGULANTS LOVENOX COUMADIN COMPREHENSIVE METABOLIC [id number] 17:13:00* Test Item Value Reference Range Interpretation Comments SODIUM (test code = NA) 140 mmol/L 135-148 N POTASSIUM (test code = K) 3.5 mmol/L 3.5-5.1 N CHLORIDE (test code = CL) 104 mmol/L 101-109 N CARBON DIOXIDE (test code = CO2) 27.5 mmol/L 21-32 N ANION GAP (test code = GAP) 12 mmol/L 10-20 N GLUCOSE (test code = GLU) 96 mg/dL 74-106 N BLOOD UREA NITROGEN (test code = BUN) 22 mg/dL 3-21 H CREATININE (test code = CREAT) 0.64 mg/dL 0.55-1.3 N BUN/CREATININE RATIO (test code = BUN/CREA) 34.4 10-20 H TOTAL PROTEIN (test code = PROT) 7.8 g/dL 6.5-8.4 N ALBUMIN (test code = ALB) 3.4 g/dL 3.4-4.8 N GLOBULIN (test code = GLOB) 4.4 G/DL 1-10 N ALBUMIN/GLOBULIN RATIO (test code = A/G) 0.8 RATIO 0.75-1.50 N CALCIUM (test code = CA) 9.7 mg/dL 8.4-10.2 N BILIRUBIN TOTAL (test code = BILT) 0.50 mg/dL 0.0-1.0 N SGOT/AST (test code = AST) 18 U/L 6-32 N SGPT/ALT (test code = ALT) 24 U/L 12-78 N N ote: Change in REFERENCE RANGE due to new reagent method. ALKALINE PHOSPHATASE TOTAL (test code = ALKP) 92 U/L 38-126 N PROTHROMBIN [id number] 17:10:00* Test Item Value Reference Range Interpretation Comments PROTHROMBIN TIME PATIENT (test code = PTP) 24.5 seconds 9.0-13.0 H INTERNATIONAL NORMAL RATIO (test code = INR) 2.6 0.8-1.2 H The therapeutic range for oral anticoagulant therapy formost indications is an international normalized ratio (INR)of between 2.0 and 3.0. The recommended therapeutic INRrange for various clinical situations is listed below: Clinical Situation INR range Pulmonary e mbolism treatment (2.0-3.0)Venous thrombosis treatmentVenous thrombosis prophylaxis (high risk surgery)Prevention of systemic embolism from: Acute myocardial infarction Valvular heart disease Atrial fibrillation Mechanical prosthetic heart valves (2.5-3.5) IS PATIENT ON ANTICOAGULANTS? NTHROMBOPLASTIN TIME [id number] 17:10:00* Test Item Value Reference Range Interpretation Comments THROMBOPLASTIN TIME PARTIAL (test code = PTT) 37.0 seconds 25.5-34. 3 H Therapeutic Range for patients on Heparin Therapy is 2 to2.5 times their baseline PTT level. IS PATIENT ON ANTICOAGULANTS? NCOMPREHENSIVE METABOLIC [id number] 17:05:00 * Test Item Value Reference Range Interpretation Comments SODIUM (test code = NA) 140 mmol/L 135-148 N POTASSIUM (test code = K) 3.5 mmol/L 3.5-5.1 N CHLORIDE (test code = CL) 104 mmol/L 101-109 N CARBON DIOXIDE (test code = CO2) 27.5 mmol/L 21-32 N ANION GAP (test code = GAP) 12 mmol/L 10-20 N GLUCOSE (test code = GLU) 96 mg/dL 74-106 N BLOOD UREA NITROGEN (test code = BUN) 22 mg/dL 3-21 H CREATININE (test code = CREAT) 0.64 mg/dL 0.55-1.3 N BUN/CREATININE RATIO (test code = BUN/CREA) 34.4 10-20 H TOTAL PROTEIN (test code = PROT) gram/dL 6.4-8.2 ALBUMIN (test code = ALB) g/dL 3.4-5.0 GLOBULIN (test code = GLOB) g/dL 2.7-4.2 ALBUMIN/GLOBULIN RATIO (test code = A/G) 0.75-1.50 CALCIUM (test code = CA) 9.7 mg/dL 8.4-10.2 N BILIRUBIN TOTAL (test code = BILT) mg/dL 0.2-1.2 SGOT/AST (test code = AST) IUnit/L 15-37 SGPT/ALT (test code = ALT) U/L 10-69 ALKALINE PHOSPHATASE TOTAL (test code = ALKP) IUnit/L 45-117 CBC W/AUTO [id number] 16:57:00* Test Item Value Reference Range Interpretation Comments WHITE BLOOD CELL (test code = WBC) 8.7 K/mm3 4.5-12.5 N RED BLOOD CELL (test code = RBC) 4.73 mill/mm3 3.7-5.2 N HEMOGLOBIN (test code = HGB) 14.2 gram/dL 11.5-15.5 N HEMATOCRIT (test code = HCT) 44.4 % 36.0-46.0 N MEAN CELL VOLUME (test code = MCV) 93.9 fL 80-98 N MEAN CELL HGB (test code = MCH) 30.0 picogram 27.0-33.0 N MEAN CELL HGB CONCETRATION (test code = MCHC) 32.0 gram/dL 33.0-36. 0 L RED CELL DISTRIBUTION WIDTH (test code = RDW) 14.0 % 11.6-16. 2 N RED CELL DISTRIBUTION WIDTH SD (test code = RDW-SD) 49.0 fL 37 .0-51.0 N PLATELET COUNT (test code = PLT) 386 K/mm3 150-450 N MEAN PLATELET VOLUME (test code = MPV) 10.1 fL 6.7-11.0 N NEUTROPHIL % (test code = NT%) 75.7 % 39.0-69.0 H LYMPHOCYTE % (test code = LY%) 11.7 % 25.0-55.0 L MONOCYTE % (test code = MO%) 11.3 % 0.0-10.0 H EOSINOPHIL % (test code = EO%) 0.7 % 0.0-5.0 N BASOPHIL % (test code = BA%) 0.3 % 0.0-1.0 N NEUTROPHIL # (test code = NT#) 6.54 K/mm3 1.8-7.7 N LYMPHOCYTE # (test code = LY#) 1.01 K/mm3 1.0-5.0 N MONOCYTE # (test code = MO#) 0.98 K/mm3 0-0.8 H EOSINOPHIL # (test code = EO#) 0.06 K/mm3 0.0-0.5 N BASOPHIL # (test code = BA#) 0.03 K/mm3 0.0-0.2 N MANUAL DIFF REQUIRED (test code = MDIFF) NO - XR CHEST 1 [id number] 16:38:00 Name: ASHOK LOCKE [facility] : 1930 Age/S:88 /F [address] [facility] Unit#:[id number] Loc: [place] [address] Phys: Dara Mcclellan MD Dis Date: PHONE #: [phone] Status: REG ER FAX #: [phone] Exam Date: 03/21/2019 Reason: preop EXAMS: CPT CODE: [id number] XR CHEST 1 V [id number] EXAM: Chest x-ray, one view; INFORMATION: Right hip fracture; preop; FINDINGS: Lungs are clear; no infiltrates, no edema; no mass lesions. A nodular density in the left upper lobe, described on a study from November 25, 2016 is not seen on today's study. The heart is moderately enlarged. Aortic calcifications. Large calcified right azygos node. A retrocardiac density with lucencies consistent with a hiatal hernia. 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 IMPRESSION: 1. No signs of active cardiopulmonary disease. 2. Moderate cardiomegaly. at 1638 Reported and signed by: Suhas Armendariz M.D. CC: Fran Caruso MaryMichael MD Technologist: Priscila Forbes Trnroberrpt Data: 03/21/2019 (163) [email or web address] Orig Print D/T: S: 03/21/2019 (3251) PAGE 1 Signed Report - XR KNEE 1 OR 2 V [id number] 15:36:00 Name: ASHOK LOCKE [facility] : 1930 Age/S:88 /F [address] [facility] Unit#:[id number] Loc: [place] [address] Phys: Dara Mcclellan MD Dis Date: PHONE #: [phone] Status: REG ER FAX #: [phone] Exam Date: 03/21/2019 Reason: fall, R hip and knee pain EXAMS: CPT CODE: [id number] XR KNEE 1 OR 2 [place] [id number] EXAM: Right knee, 2 views; INFORMATION: Hip and knee pain after fall; FINDINGS: Imaged bones are intact; no evidence of fracture or dislocation. Significant narrowing of the lateral compartment and the femoral patellar compartment of the right knee joint. This is associated with subchondral sclerosis and marginal osteophyte formation. No radiopaque foreign bodies. IMPRESSION: 1. No evidence of acute osseous trauma. 2. Advanced osteoarthritis of the right knee joint. at 1536 Reported and signed by: Suhas Armendariz M.D. CC: Fran Caruso MaryMichael MD Technologist: Priscila Canalest Data: 03/21/2019 (1536) RuiGRW Orig Print D/T: S: 03/21/2019 (0288) PAGE 1 Signed Report - XR HIP W/PEL UNI 2+V [id number] 15:35:00 Name: ASHOK LOCKE [facility] : 1930 Age/S:88 /F [address] [facility] Unit#:[id number] Loc: [place] [address] Phys: Dara Mcclellan MD Dis Date: PHONE #: [phone] Status: REG ER FAX #: [phone] Exam Date: 03/21/2019 Reason: fall, R hip and knee pain EXAMS: CPT CODE: [id number] XR HIP W/PEL UNI 2+V RT [id number] EXAM: Pelvis, one view and right hip, 2 views; INFORMATION: Hip and knee pain after slip and fall from sitting position; FINDINGS: There is disruption of the cortex along the cranial aspect of the right femoral neck consistent with a nondisplaced fracture. No dislocation. No radiopaque foreign bodies. IMPRESSION: Nondisplaced fracture of the right femoral neck. at 1535 Reported and signed by: Suhas Armendariz M.D. CC: Fran Caruso MaryMichael MD Technologist: Priscila Forbes Trnscrpt Data: 03/21/2019 (1535) Jeffrey Orig Print D/T: S: 03/21/2019 (3490) PAGE 1 Signed Report
--- NOTE | 2020-04-24 | Discharge Summary ---
EXPIRATION DATE: 03/30/2020. The patient is an 89-year-old female with history of recent fall and sustaining a fracture. The patient was then [facility] The patient did get COVID there. The patient was sent to the hospital because of hypoxia, fever, and chest x-ray with pneumonic process. The patient was sent to the emergency room, was under investigation for possible COVID with fever with symptomatologies of COVID. A consult with Dr. Yu was done and also a consult with Dr. Fonseca, senior net web developer, and also her Infectious Disease doctor, Dr. Shrestha. The patient was confirmed to have COVID, atrial fibrillation, hypoxemia, and hyperlipidemia. The patient was started on Rocephin and azithromycin. Lacks were checked. The patient also had 6 mg of Decadron every day; however, on the third day, the patient has developed pulmonary symptoms. The patient declined and was found to have respiratory failure and intubation was done by Dr. Lefty Gonsalez. The patient transferred to the ICU and again, the patient had COVID-19 on admission. We continued on the same medication, but declined. The patient was . Supportive care was done. Fluid replacement and Coumadin were stopped because of the chest tube placement. The patient developed pneumothorax. We continued monitoring the lytes and CBCs were done on a daily basis. Progression of the disease was done. We had a long discussion with the daughters on her condition and with her not wanting to get intubated and her living well showing that she did not want any mechanical devices and the consent was obtained from the [id number], her daughter, and we extubated the patient and the patient . The patient did have DNR and living will placed in the medical records. Further information, look in the chart for medicines that were given placed in the medical chart. The patient on 03/30/2020. MD KULDIP Morales/GEORGE /[id number]
== END 2020-03-30 12:37 | disposition expired | DRG 870 ==
LOC: ER 12:42 → ERHOLD 18:48 → IMCU 03-25 03:04 → ACU 03-25 10:40 → COVIDICU 03-25 11:38 → IMCU 03-30 10:02
PROVIDERS: ADMIT Family Medicine; ATTEND Family Medicine
PROC: 5A1955Z Respiratory Ventilation, Greater than 96 Consecutive Hours (ICD-10-PCS; 2020-03-25)
PROC: 0BH17EZ Insertion of Endotracheal Airway into Trachea, Via Natural or Artificial Opening (ICD-10-PCS; 2020-03-25)
PROC: 0W9B3ZX Drainage of Left Pleural Cavity, Percutaneous Approach, Diagnostic (ICD-10-PCS; 2020-03-25)
PROC: 02HV33Z Insertion of Infusion Device into Superior Vena Cava, Percutaneous Approach (ICD-10-PCS; principal; 2020-03-26)
DX: A41.9 Sepsis, unspecified organism (principal); U07.1 COVID-19; J12.89 Other viral pneumonia; J96.01 Acute respiratory failure with hypoxia; J15.9 Unspecified bacterial pneumonia; G92 Toxic encephalopathy; I48.20 Chronic atrial fibrillation, unspecified; J90 Pleural effusion, not elsewhere classified; J93.9 Pneumothorax, unspecified; Z79.01 Long term (current) use of anticoagulants; Z95.0 Presence of cardiac pacemaker; E78.5 Hyperlipidemia, unspecified; H40.9 Unspecified glaucoma; F32.9 Major depressive disorder, single episode, unspecified; M17.0 Bilateral primary osteoarthritis of knee; Z87.81 Personal history of (healed) traumatic fracture; E87.8 Other disorders of electrolyte and fluid balance, not elsewhere classified
CPT/HCPCS: 31500; 36415; 36569; 36600; 71045; 80048; 80053; 81001; 82550; 82553; 82805; 84484; 85025; 85610; 87086; 94002; 94003; 99284; J0330; J0456; J0696; J1100; J1160; J1650; J2001; J2060; J2250; J2270; J3430; J7070; Q0162; U0002